=== PATIENT | female | born 1940 | race Caucasian/White ===

== ENCOUNTER → 2023-05-21 06:20 | Day surgery (SDC) | payer MEDICARE, SELFPAY ==
[2023-05-21] VITALS (12 sets, daily range): BP systolic 127–166; BP diastolic 47–110; BMI 22.3
[2023-05-21] MEDS: TYLENOL 1000 MG PO (10:53)
[2023-05-21] MEDS: NORMOSOL-R 1000 IV (10:54)
--- NOTE | 2023-05-21 14:12 | W.SUR.PREOP ---
Pre-Operative Surgical Note
-
I have examined this patient prior to the performance of the scheduled procedure.
The patient's condition is unchanged from the time of the current History and
Physical and the patient is able to undergo the scheduled procedure.
--- NOTE | 2023-05-21 14:12 | W.IMMPOSTOP ---
Surgical Immed Post Op Note
-
Primary Surgeon: Michael Aragon MD
Assisting Surgeon: None
Pre-op Diagnosis: Right inguinal hernia
Post-op Diagnosis: Same
Procedure Performed: Open right inguinal hernia repair with mesh
Anesthesia Type: General
Specimen / Cultures: Right inguinal nerve
Estimated Blood Loss: 3 cc
Complications: None
Operative Findings: Right indirect hernia with associated cord lipoma. High ligation of the sac with resection of the lipoma performed. Ilioinguinal nerve as well as the round ligament were identified and sacrificed. Iliohypogastric nerve
identified and preserved. The deep ring was closed using 0 PDS suture from the conjoined tendon to the shelving edge. The inguinal canal was then reinforced with the Bard flat mesh, 3 x 6 inches cut to size.
--- NOTE | 2023-05-21 14:14 | OR.RPT ---
Operative Report
Operative Report
Patient Name: Melissa Rainey
: 1940
Date of Operation: 05/21/2023
Preoperative Diagnosis: Reducible Inguinal hernia, right
Postoperative Diagnosis: Same
Procedure(s):
Open Inguinal Hernia Repair
Surgeon(s):
Dr. Aragon
Papier Mache Molder(s):
MARYLOU Miramontes
Anesthesia: General
Estimated Blood Loss: 3 cc
Urine Output: None
Drains/Lines/Implants: 3 x 6 inch Bard Flat Mesh cut to size
Specimens: None
Indication for surgery: The patient has a history of groin pain and some asymmetry noted on exam and was found to have a large right inguinal Hernia. Following review of therapeutic options they has elected to undergo an open repair
Operative Findings: Right indirect hernia with associated cord lipoma. High ligation of the sac with resection of the lipoma performed. Ilioinguinal nerve as well as the round ligament were identified and sacrificed. Iliohypogastric nerve
identified and preserved. The deep ring was closed using 0 PDS suture from the conjoined tendon to the shelving edge. The inguinal canal was then reinforced with the Bard flat mesh, 3 x 6 inches cut to size.
Details of the operation:
After induction of general anesthesia, the patient was clipped, prepped and draped in the supine position. A team timeout was performed confirming administration of DVT prophylaxis, IV antibiotics and SCDs. The ASIS and pubic tubercle were marked
and an incision was chosen along the lateral course of her prior scar. The skin was anesthestized with Lidocaine. An incision was made through the skin line and dissection carried down through subcutaneous tissue and Adam's fascia. The
superficial epigastric vein was identified and ligated. A Small Oleg wound retractor was used to provide exposure. The external oblique fibers were then divided in the direction of travel. The ilioinguinal nerve was identified and resected.
Dissection was carried down to the floor, which revealed the following:
At the site of the indirect (internal) ring, there was a moderate size protrusion of preperitoneal fat, the hernia sac was identified, dissected and reduced off the round ligament. High ligation of the sac was performed and the round ligament was
also ligated. The deep inguinal ring was closed using a 0 PDS suture approximately conjoined tendon to the Sajan's ligament.
A cord lipoma was also identified and ligated.
The direct space, floor of the canal revealed no weakness.
The floor of the canal was then reconstructed by placing a 6x3 in BARD flat polypropylene mesh trimmed to size and secured it in place with interrupted 0-PDS sutures medially at the pubic tubercle, inferiorly along the inguinal ligament,
laterally/superiorly in the conjoint tendon. Care was taken not to injure or entrap any nerves. The external oblique fibers were then closed using a running 2-0 Vicryl suture. Adam's fascia was then closed with interrupted 3-0 Vicryl suture. The
skin was closed in layers with interrupted 3-0 vicryl deep dermals followed by a running subcuticular 4-0 Monocryl followed by dermabond. The patient returned to the Recovery Room in stable condition. Sponge and instrument counts were correct. No
specimens sent to Pathology.
I was the attending physician and performed the procedure with assistance from the PA above. I was present for all portions of the case
Michael Aragon MD
== END | disposition home or self-care (01) ==
LOC: SDS 06:20
PROVIDERS: ATTENDING PHYSICIAN Surgery
DX: K40.90 Unilateral inguinal hernia, without obstruction or gangrene, not specified as recurrent (principal); D17.5 Benign lipomatous neoplasm of intra-abdominal organs
CPT/HCPCS: 49505; 11400; 88305; C1781

== ENCOUNTER 2023-05-26 14:52 | Inpatient (IN) | payer MEDICARE, SELFPAY ==
[2023-05-26] VITALS (34 sets, daily range): BP systolic 73–175; BP diastolic 57–126; BMI 23.4; BMI 21.8
[2023-05-26] MEDS: CARDIZEM 15 MG IV (12:12)
[2023-05-26] MEDS: NSS 500 IV (12:12)
[2023-05-26] MEDS: CARDIZEM 125 IV (12:14)
--- NOTE | 2023-05-26 12:19 | ED.GENMED ---
History of Present Illness
General
Chief Complaint: Chest Pain
Source: patient
Exam Limitations: none
Time Seen by Provider: 05/26/23 11:48
Nursing documentation reviewed up to this point in time: agreed with
Travel History
Have you had any contact with someone who has COVID-19?: No
Do you have any symptoms of coronavirus? Fever > 100 degrees, chills, cough, shortness of breath, sore throat, loss of taste or smell, muscle aches, or headache?: No
History of Present Illness
History of Present Illness:
Patient with history of paroxysmal atrial fibrillation on Eliquis, presents to ED secondary to 'not feeling well', 'fatigue', along with lightheadedness and nausea sensation x 3 days. Patient reports having had outpatient elective hernia repair on
. Eliquis withheld 2 days prior to surgery and 2 days postop. It was restarted 3 days ago. Denies palpitations. Denies vomiting. Denies headache. Denies fever or chills. Denies chest pain. Denies back pain. Denies leg pain or
swelling.
Past History
Past History
ED Past Medical History: Arrthythmia (Atrial fibrillation), HTN, Valvular disease (Endocarditis) and Other (UTI, uterine fibroids); Negative Asthma, CAD, Cancer, CHF, Hypercholesterolemia or NIDDM
ED Past Surgical History: Appendectomy, and Other (Meningioma surgery, friable iridectomy,); Negative Cardiac
Patient has exhibited threatening behavior?: No
Social History
Tobacco: 2nd hand smoke exposure (Father was a smoker, patient reports she has been told her lungs 'look like a smokers, but I have never smoked')
Alcohol: Occasional
Drug: None
Personal:
Living: with family
Employment: Retired
Family History
Family History: Other (Noncontributory)
Review of Systems
Review of Systems
Allergies reviewed?: Yes
All Other Systems: ROS reviewed and negative except as documented in HPI and ROS
Constitutional: Reports no symptoms
EENT: Reports no symptoms
Respiratory: Reports no symptoms
Cardiac: Reports no symptoms
ABD/GI: Reports nausea; Denies abdominal pain or vomiting
: Reports no symptoms
Musculoskeletal: Reports no symptoms
Skin: Reports no symptoms
Neurological: Reports dizzy and weakness
Phy Exam
Physical Exam
Physical Exam:
Physical Exam
General: mild distress, not acutely ill. afebrile. tachycardic
Head: nc/at. eomi
Neck: supple. no meningeal signs.
Heart: irregularly irregular, no murmur. equal radial pulses.
Lungs: no acute respiratory distress. clear bilaterally
Abdomen: normal bowel sounds. not tender.
Neuro: alert and oriented. no focal neurological deficits
Skin: no rash
Psychiatric: well kept. interactive and cooperative
Extremities: no edema. no calf tenderness.
Scores
Heart Score for Chest Pain Patients
STEMI patient?: Not applicable
Course
Orders/Labs/Results
Orders:
Orders
05/26/23 11:35
EKG [Electrocardiogram (*1)] Urgent
Reason for Study: Chest Pain
EKG- Treatment ONCE
05/26/23 12:05
0.9% Sodium Chloride 500 ml [Nss] 500 ml IV BOLUS
Diltiazem HCl [Cardizem] 15 mg IV NOW STA
05/26/23 12:11
Diltiazem 125 mg/125 ml Nss [Cardizem] 125 mg in 125 ml .ROUTE .STK-MED
05/26/23 12:15
Diltiazem 125 mg/125 ml Nss [Cardizem] 125 mg in 125 ml IV PER PROTOCOL
Initial dose in mg/hr, then titrate:: 5
Titrate to keep:: Heart rate 80-100 bpm
Titrate by mg/hr:: 5 mg/hr
Frequency of titrations (minutes):: 15
Maximum dose in mg/hr:: 15
05/26/23 12:19
Complete Blood Count/No Diff Urgent
Comprehensive Metabolic Panel Urgent
Cortisol, Random Urgent
Comment: ADD ON
Magnesium Urgent
NT-proBNP Urgent
Comment: ADD ON
Serum Osmolality Urgent
TSH Urgent
Troponin I Urgent
05/26/23 13:00
Diltiazem HCl [Cardizem] 10 mg IV NOW STA
05/26/23 13:01
Diltiazem HCl [Cardizem] 25 mg .ROUTE .ST-MED ONE
05/26/23 13:46
Add On- LAB Urgent
Tests Added?: urine sodium, urine osm, serum osm
05/26/23 14:00
0.9% Sodium Chloride 1000 ml [Nss] 1,000 ml IV 100 mls/hr
05/26/23 14:09
Add On- LAB Routine
Tests Added?: cortisol
Add On- LAB Routine
Tests Added?: pro bnp
05/26/23 14:21
CR Chest Portable - 1 View Urgent
Comment:
Reason For Exam: shortness of breath
Reason Study Needs to be Portable: Unable to Transport
05/26/23 14:24
Admit/Transfer Patient As Directed
Co-Sign Provider:
Level of Care: Inpatient admission
Assign to:: IVU
Physician / Group: Nathan
Diagnosis: A-fib with RVR, Hyponatremia
Reason for Hospitalization: Cardizem drip
Expected length of stay greater than two midnights?: Yes
ELOS- Estimated Length of Stay in days: 3
I certify the patient meets the requirements for IP care: Yes
CARDIOLOGY CONSULT Routine
Consulting Provider: Sean Diaz
Was physician already notified: Yes
05/26/23 14:28
Code Status As Directed
Resuscitation Status: Full Code
05/26/23 16:38
Osmolality, Random Urine Urgent
Date Specimen was Collected: 05/26/23
Time Specimen was Collected: 13:57
Comment: NO SPECIMEN IN LAB TO ADD ON TO
Urine Sodium Urgent
Date Specimen was Collected: 05/26/23
Time Specimen was Collected: 13:57
Comment: NO SPECIMEN IN LAB TO ADD ON TO
05/26/23 18:43
Acetaminophen [Tylenol] 1,000 mg PO QIDPRN PRN
05/26/23 18:43
Activity As Directed
Activity Level: Out of Bed-Early Mobility
With Assistance
I&O [Intake/ Output] As Directed
Frequency: q12h
Vital Signs As Directed
Frequency: Per unit guidelines
Weight As Directed
Frequency: Daily
05/26/23 19:00
Diltiazem Extended Release [Cardizem Cd] 240 mg PO QPM
05/26/23 20:00
Apixaban [Eliquis] 5 mg PO BID
Docusate Sodium [Colace] 100 mg PO BID
Metoprolol Xl [Toprol Xl] 25 mg PO BID
05/27/23 03:20
Basic Metabolic Panel IN AM
Complete Blood Count/No Diff IN AM
05/27/23 Breakfast
Sodium, 2 Gram
At Your Request: Full Participation
Does patient need a safe tray?: No
Fluid Restriction: 1440 mL/day (48 oz)
Abnormal Lab Results
05/26/23
12:19
MCH 31.3 H pg
(27.0-31.0)
Sodium 123 L mmol/L
(135-145)
Chloride 89 L mmol/L
(98-107)
Glucose 105 H mg/dl
(70-99)
Serum Osmolality 262 L mOsm/kg
(275-300)
05/26/23 12:19
05/26/23 12:19
Vital Signs
Initial and Last Documented VS:
Initial Vital Signs
Temp Pulse Resp BP Pulse Ox
98.3 F 153 17 134/106 95
05/26/23 11:40 05/26/23 11:40 05/26/23 11:40 05/26/23 11:40 05/26/23 11:40
Last Documented Vital Signs
Temp Pulse Resp BP Pulse Ox
98 F 94 16 126/75 99
05/27/23 07:04 05/27/23 07:04 05/27/23 07:04 05/27/23 03:14 05/27/23 07:04
MDM/Problems Addressed
MDM/Problems Addressed:
Patient evaluated immediately upon arrival secondary to significantly elevated heart rate. Initial EKG and her symptoms consistent with rapid atrial fibrillation. Patient given IV fluid bolus and started on Cardizem infusion, with improved heart
rate, as well as improved sensation. During observation, patient given 1 additional bolus of Cardizem secondary to recurrent elevation of heart rate despite high doses of Cardizem infusion. In light of patient's hyponatremia associated with labile
heart rate, patient will be admitted for further evaluation and treatment.
Critical care statement: A total of 40 minutes of critical care time was provided for this patient. This includes management of unstable vital signs, evaluation of the patient at bedside, reviewing the patient's pertinent medical records, review of
old EKGs and review of pertinent medical records. This time with separate from time utilized to perform the aforementioned documented procedures
*EKG
Interpreted by ED Provider?: Yes
EKG Intrepretation Date: 05/26/23
Heart Rate: 153
Rate: tachycardiac
Rhythm: a-fib
[place]: normal axis
Interval: normal interval
Ischemia: non-specific ST changes
*Critical Care Note
Total Time (30-74mins, 75-104mins- exclusive of procedures): 40 min
ED Attending Note
-
Portions of this chart may have been created with voice recognition software.� Occasional wrong word or��sound alike� substitutions may have occurred due to the inherent limitations of voice recognition software.
Discharge Plan
Departure
Patient Disposition: Admit
Date of Disposition: 05/26/23
Time of Disposition: 13:45
Admit to: IMU
Presentation/result/management discussed w/ accepting MD/DO: Hospitalist
Discharge Problem:
Atrial fibrillation, rapid, Acute hyponatremia
Interventions
Interventions:
*Risk Screen - Suicide Last Done: 05/26/23 11:36
*General Assessment Last Done: 05/26/23 11:36
*Neglect/Abuse Screening Last Done: 05/26/23 11:36
*ED COVID-19 Vaccine History Last Done: 05/26/23 11:36
*Nursing Disposition Last Done: 05/26/23 18:47
ED- Cardiac Assessment Last Done: 05/26/23 11:57
Discharge Date and Time
Discharge Date/Time: 05/26/23 18:48
[2023-05-26 12:28] LABS: Hemoglobin 14.8 g/dL (12.0-16.0); Mean Corp Hgb Conc. 35.2 g/dL (33.0-37.0); Mean Corpuscular Hgb 31.3 pg (27.0-31.0); Mean Corpuscular Volume 88.8 fL (81.0-99.0); Mean Platelet Volume 9.7 fL (7.4-10.4); Platelet Count 392 10^3/uL (130-400); Red Blood Cell Count 4.73 10^6/uL (4.20-5.40); Red Cell Dist. Width 12.8 % (11.5-14.5)
[2023-05-26 12:52] LABS: ALT (SGPT) 19 U/L (0-35); AST (SGOT) 31 U/L (14-36); Albumin 4.7 g/dl (3.5-5.0); Alkaline Phosphatase 102 U/L (38-126); Blood Urea Nitrogen 10 mg/dl (7-17); Calcium 10.2 mg/dl (8.4-10.2); Carbon Dioxide 24 mmol/L (22-30); Chloride 89 mmol/L (98-107); Estimated Creatinine Clearance 60 ml/min; Glucose 105 mg/dl (70-99); Magnesium 1.9 mg/dl (1.6-2.3); Sodium 123 mmol/L (135-145); Total Bilirubin 0.5 mg/dl (0.2-1.3); Total Protein 7.2 g/dl (6.3-8.2); eGFR > 60.00
[2023-05-26] MEDS: CARDIZEM 10 MG IV (13:01)
[2023-05-26 13:03] LABS: Troponin I < 0.012 ng/ml
[2023-05-26 13:32] LABS: TSH 2.13 uIU/ml (0.47-4.68)
--- NOTE | 2023-05-26 14:34 | HPS.HSE ---
Addendum entered and electronically signed by Guero Evans MD 05/30/23 14:39:
Dictation- [id number]
Addendum entered and electronically signed by Guero Evans MD 05/26/23 16:17:
82-year-old pleasant female presented with lightheadedness. She had an open inguinal hernia repair on 05/21/2023 and was discharged home. Patient admitted that she has been drinking a lot of tea and water at home. She has been experiencing fatigue
which brought her to the hospital. Eliquis was held 2 days before and after the surgery. Now restarted
On examination awake alert oriented
Cardiovascular system S1-S2 regular tachycardic
Chest few rales at the bases
Abdomen soft and nontender
Right inguinal area with ecchymosis
Neuro exam nonfocal
# Atrial fibrillation with RVR
Continue Cardizem drip
Continue Eliquis
Cardiology consultation
Update echo
# Hyponatremia
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
Lasix 40 mg IV now
Fluid restriction discussed with the patient and
Follow sodium
# Hypertension-continue Cardizem for now
Also on metoprolol
# Open right inguinal hernia repair by Dr. Aragon on 05/21/2019
# History of endocarditis
# Mild AI
# Ambulatory dysfunction/arthritis
# History of meningioma surgery
# DVT prophylaxis-Eliquis
# Full code
Discussed with patient's at bedside
Addendum entered and electronically signed by Shireen De Jesus PA-C 05/26/23 15:48:
Correction under Physical Exam
Cardiac: S1/S2, Irregular Rhythm, Tachycardia
Original Note:
Family Physician
-
Family Physician: Demi Galvez
Chief Complaint
-
Fatigue and lightheadedness
History of Present Illness
Patient is an 82-year-old female past medical history of atrial fibrillation who presents with fatigue, lightheadedness and nausea x 3 days. Patient underwent an elective outpatient open inguinal hernia repair on May 20. She states she
felt as expected on on Thursday. On Thursday she noted symptoms are slightly worse, and she continued to have worsening symptoms over the next few days prompting her to come to the emergency department for evaluation. Patient reports that she has
been eating good meals since the surgery. She states she has been drinking quite a lot of fluid including several pots of tea per day as well as Diet Coke, cranberry juice, and sparkling water. While the emergency department she send have a sodium
level of 123. Her EKG also revealed atrial fibrillation with rapid ventricular response. She denies chest pains or palpitations.
Medical History
Past Medical History
Past Medical History: Reports Other
Additional Past Medical History:
Paroxysmal Atrial Fibrillation
Past Surgical History: Reports Other
Additional Past Surgical History:
Multiple Meningioma Resections
Appendectomy
Right Knee Replacement
Left Hip Replacement
Social History
Tobacco: Non-smoker
Alcohol: Occasional
Personal:
Living: With Family
Family History
Family History: Not pertinent
Allergies / Home Medications
Allergies reflects when Allergies were last updated in [facility].
Home Medications with original date entered in [facility]
Allergy/Medication List:
Allergies
Allergy/AdvReac Type Severity Reaction Status Date / Time
cats Allergy congestion, Uncoded 05/21/23 10:37
itchy
eyes,
sneezing
hay fever Allergy congestion, Uncoded 05/21/23 10:37
itchy
eyes,
sneezing
Home Medications
diltiazem HCl 240 mg tablet,extended release 24 hr 240 mg PO QPM 01/03/14
apixaban 5 mg tablet (Eliquis) 5 mg PO BID ##0 04/11/19
metoprolol succinate 25 mg tablet,extended release 24 hr 25 mg PO BID 04/11/19
acetaminophen 500 mg tablet 1,000 mg PO QIDPRN PRN mild pain 05/15/23
calcium citrate 250 mg PO DAILY ##0 05/15/23
cyanocobalamin (vitamin B-12) 1,000 mcg tablet (Vitamin B-12) 1,000 mcg PO DAILY 05/15/23
docusate sodium 100 mg capsule (Colace) 100 mg PO BID 05/26/23
polyethylene glycol 3350 17 gram oral powder packet (Miralax) 17 g PO DAILYPRN PRN constipation 05/26/23
Review of Systems
-
A 12 point ROS was completed and negative except as noted: Yes
Constitutional: Denies Fever or Chills
Respiratory: Reports Trouble Breathing (Mild); Denies Cough
Cardiac: Denies Chest Pain or Palpitations
Abdomen/GI: Reports Nausea and Constipated; Denies Abdominal Pain or Vomiting
Physical Exam
Vital Signs
Vital Signs
Temp Pulse Resp BP Pulse Ox
98.3 F 98 17 135/123 98
05/26/23 11:40 05/26/23 13:15 05/26/23 13:15 05/26/23 13:15 05/26/23 13:15
Physical Exam
General: Comfortable and Conversant
HEENT: Anicteric and Moist mucous membranes
Respiratory: Clear and Non Labored Respirations
Cardiac: S1/S2 and Regular Rhythm
GI: Soft, Non Tender and Other (Abdomen feels full)
Rectal: Deferred by Provider
Musculoskeletal: No Clubbing, No Cyanosis and No Edema
Skin: Warm, Dry and Other (Right Groin incision site appears clean, dry and intact without evidence of infection)
Neuro: Awake, Alert, Oriented and Nonfocal/grossly intact
Psych: Calm
Laboratory Results
-
05/26/23 12:19
05/26/23 12:19
Laboratory Results
Total Bilirubin 0.5 mg/dl (0.2-1.3) 05/26/23 12:19
AST 31 U/L (14-36) 05/26/23 12:19
ALT 19 U/L (0-35) 05/26/23 12:19
Alkaline Phosphatase 102 U/L (38-126) 05/26/23 12:19
Troponin I < 0.012 ng/ml 05/26/23 12:19
Data Reviewed
-
Lab Data: Labs Reviewed by me
Old Records: Reviewed
Impression/Plan
-
Atrial Fibrillation with Rapid Ventricular Response
-Admit to IVU for titratable Cardizem drip
-Consult Cardiology
-Continue Eliquis for anticoagulation
-Check CXR and BNP
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
-Check urine sodium, and urine osmolality
-Start fluid restriction
-Recheck sodium in AM
DVT proph: Eliquis
Code Status: Full Code
--- NOTE | 2023-05-26 14:39 | CON.CAR ---
Addendum entered and electronically signed by Sean Diaz MD 05/26/23 16:48:
I saw and examined the patient.
The TRAM DRIVER's note was reviewed and I agree with the note.
82-year-old woman with history of paroxysmal atrial fibrillation, distant history of pericarditis who underwent her 05/21/2023. Patient reports feeling weak and fatigued over the last 4 days on presentation patient with RVR but is also noted to be
hyponatremic with a sodium of 123. Patient's with regulation over the last 4 days. Patient is unsure about the exact time of onset of her A-fib. No complaints of racing. She has had some mild chest discomfort at night when she lays down it feels
like a tightness but it goes away if she sits up. Currently comfortable with no chest pain or shortness of breath at rest.
-Continue IV Cardizem for rate control of A-fib
-Continue Eliquis.
-Additional management of hyponatremia as directed by primary team
-If patient does not spontaneously convert to sinus rhythm then we can consider JESUSITA cardioversion this admission however I would wait until her hyponatremia has improved.
Original Note:
Consultation
Consultation Request
Date/Time Consultation Requested: 05/26/23 14:20
Date/Time Consultation Performed: 05/26/23 14:45
Requesting Provider: Shireen De Jesus PA-C
Performing Provider: EMIL Leiva for Dr. Diaz
Reason for Consultation: Atrial fibrillation with RVR
Medical History
-
Chief Complaint: Lightheadedness
History of Present Illness:
Melissa Rainey is an 82 year-old female (known to her primary chief librarian work with blind, Dr. Moya, formerly known to Dr. Louie) with paroxysmal atrial fibrillation (on Eliquis), hypertension (white coat element), mild aortic regurgitation, recurrent
meningiomas status-post gamma knife surgery for removal of enlarging meningiomas (at the [facility]), and previous viral pericarditis (2012) presenting with a chief complaint of lightheadedness. She had a right open
inguinal hernia repair on 05/21/2023. She was discharged home. There were no intraoperative complications. On Thursday, she began experiencing more significant fatigue in addition to lightheadedness and nausea. She presented to the emergency room
for evaluation. She was found to have hyponatremia and endorsed significant fluid consumption. She was also found to be in atrial fibrillation with rapid ventricular response. Her apixaban was held 2 days prior to her surgery and 2 days
postoperatively.
Past Medical History
Past Medical History: Other (See HPI)
Past Surgical History: Brain, Cardiac, and Orthopedic
Social History
Tobacco: Non-Smoker
Personal:
Living: With Family
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
Family History
Family History: Reviewed & Not Pertinent
Allergies / Home Medications
Allergy/AdvReac Type Severity Reaction Status Date / Time
cats Allergy congestion, Uncoded 05/21/23 10:37
itchy
eyes,
sneezing
hay fever Allergy congestion, Uncoded 05/21/23 10:37
itchy
eyes,
sneezing
Medication Instructions Recorded Confirmed Type
diltiazem HCl 240 mg 240 mg PO QPM 01/03/14 05/26/23 History
tablet,extended release 24 hr
apixaban 5 mg tablet (Eliquis) 5 mg PO BID ##0 04/11/19 05/26/23 Rx
metoprolol succinate 25 mg 25 mg PO BID 04/11/19 05/26/23 Rx
tablet,extended release 24 hr
acetaminophen 500 mg tablet 1,000 mg PO QIDPRN PRN mild pain 05/15/23 05/26/23 History
calcium citrate 250 mg PO DAILY ##0 05/15/23 05/26/23 History
cyanocobalamin (vitamin B-12) 1,000 mcg PO DAILY 05/15/23 05/26/23 History
1,000 mcg tablet (Vitamin B-12)
docusate sodium 100 mg capsule 100 mg PO BID 05/26/23 05/26/23 History
(Colace)
polyethylene glycol 3350 17 gram 17 g PO DAILYPRN PRN constipation 05/26/23 05/26/23 History
oral powder packet (Miralax)
Review of Systems
-
History Source: Patient
All other systems: Negative unless noted
Respiratory: No Symptoms
Cardiac: No Symptoms
Neurological: Other (lightheadedness)
Physical Exam
Vital Signs
Temp Pulse Resp BP Pulse Ox
98.3 F 98 17 135/123 98
05/26/23 11:40 05/26/23 13:15 05/26/23 13:15 05/26/23 13:15 05/26/23 13:15
Lab Results
05/26/23 12:19
05/26/23 12:19
Troponin I < 0.012 ng/ml 05/26/23 12:19
Physical Exam
General: Well Developed, Well Nourished, No Apparent Distress and Comfortable
HEENT: Normocephalic, Anicteric and Moist Mucous Membranes
Respiratory: Clear and Non Labored Respirations
Cardiac: S1/S2 and Irregular Rhythm; Negative Peripheral Edema
Breast: Deferred by me
GI: Soft, Non Tender, Non Distended and Normal Bowel Sounds
Rectal: Deferred by Provider
Genito-urinary: No Costovertebral Tender
Musculoskeletal: No Clubbing, No Cyanosis and No Edema
Skin: Warm and Dry
Neuro: AO x 3
Hematologic/Lymphatic: No Lymphadenopathy
Psych: Calm
Impression / Plan
-
Atrial fibrillation with RVR
-Rate control with diltiazem gtt
-Oral Anticoagulation: Apixaban 5mg BID, doses held with recent surgery, resumed 05/23/23
-[id number]: score at least 4 (HTN, age 75 or more, female gender)
-Can consider JESUSITA/DCCV after sodium normalizes
Hyponatremia
- Na 123, suspicious for SIADH given significant fluid intake
HTN, with white coat element
Mild aortic regurgitation
Open right inguinal hernia repair by Dr. Aragon on 05/20/22
Data Reviewed
-
EKG: Report Reviewed by me (Atrial fibrillation with RVR, rate 153)
Radiology: Report Reviewed by me (CXR: No acute cardiopulmonary process.)
Medical Tests (Nuc Med, Echo etc): Report Reviewed by me (Echo as above)
Labs: Labs Reviewed by me
Old Records: Reviewed
[2023-05-26 14:42] LABS: Osmolality Serum 262 mOsm/kg (275-300)
[2023-05-26 15:25] LABS: NT-proBNP 4770 pg/ml
[2023-05-26 15:28] LABS: Cortisol, Random 18.1 ug/dl
[2023-05-26] MEDS: LASIX 40 MG IV (16:48)
[2023-05-26 16:58] LABS: Osmolality Urine 96 mOsm/kg (300-900)
[2023-05-26 17:08] LABS: Urine Sodium 27 mmol/L (30-90)
--- NOTE | 2023-05-26 19:02 | PTCARENOTE ---
Patient admitted from ED with LORY with RVR. Patient assisted to the bed, IV cardizem infusing at 10mg/hr. Oriented to room and plan of care, call snow within reach. Admission assessment completed, at the bedside.
[2023-05-26] MEDS: TOPROL XL 25 MG PO (20:12)
[2023-05-26] MEDS: ELIQUIS 5 MG PO (20:12)
[2023-05-26] MEDS: COLACE 100 MG PO (20:13)
[2023-05-26] MEDS: CARDIZEM CD 240 MG PO (20:17)
[2023-05-26] MEDS: MIRALAX 17 GRAMS PO (22:28)
[2023-05-26] MEDS: TYLENOL 1000 MG PO (22:29)
--- NOTE | 2023-05-26 22:51 | PTCARENOTE ---
Pt rec'd from ED at shift change awake,alert in rapid afib. Cardizem gtt at 10 mg/hr. ht rate low 100 at rest up to 140 with activity. After receiving po Cardizem and Lopressor pts ht rate 80's with short pauses noted. RLQ hernia repair incision angeles
no drainage; surgical glue present. hypoactive bs noted. Pt reports no bm since . Miralax order obtained and given along with Colace. Pt medicated with Tylenol for inc discomfort 2 out of 10. call snow within reach.
[2023-05-27] VITALS (8 sets, daily range): BP systolic 98–126; BP diastolic 61–84; BMI 21.5
[2023-05-27 03:59] LABS: Hematocrit 43.7 % (37.0-47.0); Hemoglobin 15.6 g/dL (12.0-16.0); Mean Corp Hgb Conc. 35.7 g/dL (33.0-37.0); Mean Corpuscular Hgb 31.4 pg (27.0-31.0); Mean Corpuscular Volume 87.9 fL (81.0-99.0); Mean Platelet Volume 9.3 fL (7.4-10.4); Platelet Count 400 10^3/uL (130-400); Red Blood Cell Count 4.97 10^6/uL (4.20-5.40); White Blood Cell Count 7.3 10^3/uL (4.8-10.8)
[2023-05-27 04:10] LABS: Blood Urea Nitrogen 13 mg/dl (7-17); Calcium 9.9 mg/dl (8.4-10.2); Carbon Dioxide 27 mmol/L (22-30); Chloride 98 mmol/L (98-107); Estimated Creatinine Clearance 42 ml/min; Glucose 98 mg/dl (70-99); Potassium 4.4 mmol/L (3.5-5.1); Sodium 131 mmol/L (135-145); eGFR 56.25
--- NOTE | 2023-05-27 05:39 | PTCARENOTE ---
Pt remains in afib rates 60-80. Cardizem gtt at 5 mg at this time.
[2023-05-27] MEDS: COLACE 100 MG PO ×2 (08:14→20:06)
[2023-05-27] MEDS: TOPROL XL 25 MG PO ×2 (08:14→20:05)
[2023-05-27] MEDS: ELIQUIS 5 MG PO ×2 (08:14→20:06)
--- NOTE | 2023-05-27 08:30 | PTCARENOTE ---
Received patient this morning resting in bed, offers no complaints. IV cardizem infusing at 5mg/hr, remains in AF with rate in the 90's at rest however when oob to the bathroom, rates are 150-160's.
--- NOTE | 2023-05-27 10:37 | CM ---
Chart reviewed. Patient is independent of ADLS, lives with her in a [address], [address] with a railing, 0 DME. Patient is not current with VN, but is interested. Referral sent to [facility]. Plan is for the [facility]. CM to
follow
--- NOTE | 2023-05-27 11:33 | W.PN.HOSP.TC ---
Today's Communication/Plan
-
Lasix 20 mg now
BMP in am
JESUSITA CV in am
Assessment / Plan
Assessment / Plan
Cardiovascular system S1-S2 irregular tachycardic
Chest few rales at the bases
Abdomen soft and nontender
Right inguinal area with ecchymosis
Neuro exam nonfocal
# Atrial fibrillation with RVR
Continue Cardizem drip
Continue Eliquis
Cardiology consultation
Update echo For JESUSITA
JESUSITA/CV planned for tomorrow
# Hyponatremia
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
Lasix 20 mg IV now
Fluid restriction
Follow sodium-Better now
# Hypertension-continue Cardizem for now
Also on metoprolol
# Open right inguinal hernia repair by Dr. Aragon on 05/21/2019
He is aware
# History of endocarditis
# Mild AI
# Ambulatory dysfunction/arthritis
# History of meningioma surgery
# DVT prophylaxis-Eliquis
# Full code
D/W and daughter at bed side
Anticipated Discharge: Within 24 hours
Subjective/Interval History
-
Date of Service: May 27, 2023
Objective Data
-
Labs:
Laboratory Results
05/27/23
03:20
WBC 7.3
Hgb 15.6
Hct 43.7
Plt Count 400
Sodium 131 L D
Potassium 4.4
Chloride 98
Carbon Dioxide 27
BUN 13
Creatinine 1.0
Glucose 98
Calcium 9.9
Vital Signs:
Vital Signs
Temp Pulse Resp BP Pulse Ox
97.8 F 106 22 113/71 99
05/27/23 11:16 05/27/23 11:16 05/27/23 11:16 05/27/23 07:04 05/27/23 07:04
I&O
05/26/23 05/27/23 05/28/23
06:59 06:59 06:59
Intake Total 440 / 440 300 / 300
Output Total 150 / 150 650 / 650
Balance 290 / 290 -350 / -350
--- NOTE | 2023-05-27 11:46 | W.PN.CD ---
Today's Communication / Plan
-
-Patient with suboptimal heart rate control, even on Cardizem drip.
-Continue Cardizem drip for now.
-Continue Eliquis; doses recently held due to hernia repair surgery, resumed on 05/23/2023.
-Unable to increase metoprolol dose, as patient had heart rates in the 50s in the office when she was in sinus rhythm.
-Will schedule for JESUSITA/cardioversion tomorrow.
-Will make NPO after midnight.
Impression / Plan
-
Melissa Rainey is an 82 year-old female (known to her primary dosier operator, Dr. Moya, formerly known to Dr. Louie) with paroxysmal atrial fibrillation (on Eliquis), hypertension (white coat element), mild aortic regurgitation, recurrent
meningiomas status-post gamma knife surgery for removal of enlarging meningiomas (at the [facility]), and previous viral pericarditis (2012) presenting with a chief complaint of lightheadedness. She had a right open
inguinal hernia repair on 05/21/2023. Found to be in AFIB with RVR.
PAF with RVR
-Patient with suboptimal heart rate control, even on Cardizem drip.
-Continue Cardizem drip for now.
-Continue Eliquis; doses recently held due to hernia repair surgery, resumed on 05/23/2023.
-Unable to increase metoprolol dose, as patient had heart rates in the 50s in the office when she was in sinus rhythm.
-Will schedule for JESUSITA/cardioversion tomorrow.
-Will make NPO after midnight.
-Oral Anticoagulation: Apixaban 5mg BID, doses held with recent surgery, resumed 05/23/23.
-[id number]: score at least 4 (HTN, age 75 or more, female gender)
Hyponatremia
- Na 123, suspicious for SIADH given significant fluid intake; improved.
HTN, with white coat element
Mild aortic regurgitation - stable.
Open right inguinal hernia repair by Dr. Aragon on 05/20/22 - stable.
Physical Exam
Vital Signs/Labs
Vital Signs
Temp Pulse Resp BP Pulse Ox
97.8 F 95 22 98/71 99
05/27/23 11:16 05/27/23 11:30 05/27/23 11:16 05/27/23 11:16 05/27/23 07:04
05/26/23 05/27/23 05/28/23
06:59 06:59 06:59
Actual Weight 62.2 kg
05/27/23 03:20
05/27/23 03:20
Magnesium 1.9 mg/dl (1.6-2.3) 05/26/23 12:19
TSH 2.13 uIU/ml (0.47-4.68) 05/26/23 12:19
05/26/23
12:19
Waj-B-Bckcaanitlc Pept 4770
LAB Results
05/26/23
12:19
Troponin I < 0.012
Physical Exam
Constitutional: No acute distress and Comfortable
EENT: Anicteric
Cardiovascular: Pedal edema is absent, Systolic murmur absent, Rhythm/rate is irregular and S1S2 is normal
Respiratory: Respiratory effort normal and Lungs clear to auscul.
GI: Soft
Neuro/Psych: AO x 3
Other: Skin (Warm, dry, intact)
Data Reviewed
-
Date of Service: May 27, 2023
EKG: Report Reviewed by me (Telemetry: A-fib with RVR/variable heart rates+)
Echo: Report Reviewed by me (Normal LVEF)
Medical Tests (PFT, Pathology etc): Discussed with Patient and Discussed with Family (, Neeraj, at bedside)
Labs: Labs Reviewed by me
[2023-05-27] MEDS: FLUSH (NSS) 2 FLUSH IV (11:59)
[2023-05-27] MEDS: LASIX 20 MG IV (11:59)
--- NOTE | 2023-05-27 13:34 | PTCARENOTE ---
Patient remains in AF, asymptomatic. Seen by cardiology, for JESUSITA/CV in AM. Cardizem infusing at 5mg/hr.
--- NOTE | 2023-05-27 16:02 | PTCARENOTE ---
Patient stated she was feeling stiff from lying in bed. Assisted to the recliner chair however 10 mins later she stated she felt a little nauseated and lightheaded. BP 121/76, remains in AF with HR in the 120's. Assisted back to bed, sipping modesta
alanna and feeling better now.
[2023-05-27] MEDS: CARDIZEM CD 240 MG PO (17:20)
[2023-05-27] MEDS: CARDIZEM 125 IV (22:41)
[2023-05-27] MEDS: TYLENOL 1000 MG PO (22:42)
[2023-05-28] VITALS (12 sets, daily range): BP systolic 74–146; BP diastolic 49–99; BMI 21.8
--- NOTE | 2023-05-28 00:21 | PTCARENOTE ---
Pt rec'd at change of shift with sons at bedside. Pt remains in afib. Npo after mn for JESUSITA/CV in am. Cardizem gtt continued via RAC at 5 mg/hr.
[2023-05-28 04:42] LABS: Blood Urea Nitrogen 17 mg/dl (7-17); Calcium 9.8 mg/dl (8.4-10.2); Carbon Dioxide 29 mmol/L (22-30); Chloride 91 mmol/L (98-107); Estimated Creatinine Clearance 53 ml/min; Glucose 95 mg/dl (70-99); Magnesium 2.2 mg/dl (1.6-2.3); Potassium 4.3 mmol/L (3.5-5.1); Sodium 128 mmol/L (135-145); eGFR > 60.00
--- NOTE | 2023-05-28 05:05 | PTCARENOTE ---
Pt remains in afib. cardizem gtt continued at 5 mg/hr.
[2023-05-28] MEDS: TOPROL XL 25 MG PO ×2 (08:23→19:53)
[2023-05-28] MEDS: ELIQUIS 5 MG PO ×2 (08:23→19:54)
--- NOTE | 2023-05-28 08:47 | W.PN.CD ---
Today's Communication / Plan
-
continue eliquis
JESUSITA/DCCV today
will stop diltiazem drip
Impression / Plan
-
82 year-old female (known to her primary music executive, Dr. Moya, formerly known to Dr. Louie) with paroxysmal atrial fibrillation (on Eliquis), hypertension (white coat element), mild aortic regurgitation, recurrent meningiomas status-post
gamma knife surgery for removal of enlarging meningiomas (at the [facility]), and previous viral pericarditis (2012) presenting with a chief complaint of lightheadedness. She had a right open inguinal hernia repair on
05/21/2023. Found to be in AFIB with RVR.
Parox AFib: now with recurrence with RVR
-Patient with suboptimal heart rate control, even on Cardizem drip. Will stop drip this AM.
-Continue Eliquis; doses recently held due to hernia repair surgery, resumed on 05/23/2023.
-Unable to increase metoprolol dose, as patient had heart rates in the 50s in the office when she was in sinus rhythm.
-JESUSITA/cardioversion today
-Oral Anticoagulation: Apixaban 5mg BID, doses held with recent surgery, resumed 05/23/23.
-[id number]: score at least 4 (HTN, age 75 or more, female gender)
Hyponatremia
- Na 123, suspicious for SIADH given significant fluid intake; improving
HTN, with white coat element
Mild aortic regurgitation - stable.
Open right inguinal hernia repair by Dr. Aragon on 05/20/22 - stable.
Physical Exam
Vital Signs/Labs
Vital Signs
Temp Pulse Resp BP Pulse Ox
98.1 F 87 18 104/83 99
05/28/23 07:42 05/28/23 08:23 05/28/23 07:42 05/28/23 08:23 05/28/23 07:42
05/27/23 05/28/23 05/29/23
06:59 06:59 06:59
Actual Weight 62.2 kg 63.2 kg
05/27/23 03:20
05/28/23 04:02
Magnesium 2.2 mg/dl (1.6-2.3) 05/28/23 04:02
TSH 2.13 uIU/ml (0.47-4.68) 05/26/23 12:19
05/26/23
12:19
Rib-Y-Svvaheqmnnn Pept 4770
LAB Results
05/26/23
12:19
Troponin I < 0.012
Physical Exam
Constitutional: No acute distress and Comfortable
EENT: Moist mucous membranes
Cardiovascular: Pedal edema is absent, JVD pressure is normal, Systolic murmur absent and Rhythm/rate is irregular
Respiratory: Respiratory effort normal, Lungs clear to auscul. and Wheeze Absent
GI: Soft and Distention absent
Neuro/Psych: AO x 3
Data Reviewed
-
Date of Service: May 28, 2023
EKG: Other (Tele: A fib 100-110)
Labs: Labs Reviewed by me
--- NOTE | 2023-05-28 10:17 | W.PN.HOSP.TC ---
Today's Communication/Plan
-
JESUSITA/CV today
One dose of Samsca
Assessment / Plan
Assessment / Plan
Cardiovascular system S1-S2 irregular tachycardic
Chest few rales at the bases
Abdomen soft and nontender
Right inguinal area with ecchymosis
Neuro exam nonfocal
# Atrial fibrillation with RVR
Continue Cardizem drip
Continue Eliquis
Cardiology consultation
Update echo For JESUSITA
JESUSITA/CV planned for today
# Hyponatremia
Lower today
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
S/P Lasix
Will give a dose of Samsca
Fluid restriction
Follow sodium
# Hypertension-continue Cardizem for now
Also on metoprolol
# Open right inguinal hernia repair by Dr. Aragon on 05/21/2019
He is aware re hospital admission
# History of endocarditis
# Mild AI
# Ambulatory dysfunction/arthritis
# History of meningioma surgery
# DVT prophylaxis-Eliquis
# Full code
D/W at bed side
D/W
Anticipated Discharge: Within 24 hours
Subjective/Interval History
-
Date of Service: May 28, 2023
Objective Data
-
Labs:
Laboratory Results
05/28/23
04:02
Sodium 128 L
Potassium 4.3
Chloride 91 L
Carbon Dioxide 29
BUN 17
Creatinine 0.8
Glucose 95
Calcium 9.8
Vital Signs:
Vital Signs
Temp Pulse Resp BP Pulse Ox
98.1 F 87 18 104/83 99
05/28/23 07:42 05/28/23 08:23 05/28/23 07:42 05/28/23 08:23 05/28/23 07:42
I&O
05/27/23 05/28/23 05/29/23
06:59 06:59 06:59
Intake Total 440 / 440 780 / 780
Output Total 150 / 150 1750 / 1750 500 / 500
Balance 290 / 290 -970 / -970 -500 / -500
--- NOTE | 2023-05-28 10:26 | W.PN.UPDATE ---
Update Note
Progress Note Update
Unable to pass JESUSITA probe during JESUSITA even with assistance from anesthesia and using glide scope
Will abort JESUSITA/CV for now. Cont rate control strategy.
Cont Cardizem.
consider esophagram or 4 weeks of anticoagulation and then elective CV.
Discussed with Dr. Arora
--- NOTE | 2023-05-28 10:48 | CON.GI ---
Addendum entered and electronically signed by Alek Casillas MD 05/28/23 22:02:
I saw and examined the patient.
The PA's note was reviewed and I agree with the note.
Comment:
The pt is a 82 year old female with h/o PAF on Eliquis, HTN, and AR who p/w lightheadedness, found to have afib with RVR. Cardiology attempted CV today and noted difficulty with JESUSITA probe.
Impression / Rec:
1. Inability to pass JESUSITA probe - may be 2/2 to osteophyte or benign stenosis in UES. Agree with esophagram for further eval +/- EGD.
Original Note:
Consultation
-
Date/Time Consultation Requested: 05/28/23 1030
Date/Time Consultation Performed: 05/28/23 1040
Requesting Provider: EMIL Sánchez
Performing Provider: EMIL Naidu, Alek Casillas MD
Reason for Consultation: abnormal JESUSITA
Medical History
Chief Complaint / HPI
Chief Complaint: abnormal JESUSITA
History of Present Illness:
Pt is a 82yo with hx PAF on Eliquis, HTN, Aortic regurg, several meningiomas with resection and gamma knife procedure, osteoma with resection, prior pericarditis, open hernia repair last week with onset of lightheadedness. On admission noted with
hyponatremia and afib with RVR and went for CV today and noted difficulty with JESUSITA probe.
In reviewing with patient and family hx occasional chronic dysphagia with eating but no prior food impaction or regurgitation. She denies odynophagia, wt loss, nausea, vomiting, hematemesis, abdominal pain, diarrhea, constipation or rectal
bleeding. No hx EGD. Last colonoscopy age 75 small polyp.
Past Medical History
Past Medical History: Arrhythmias (afib with RVR), HTN, Valvular Disease (Aortic regurg) and Other (endocarditis, arthritis ambulatory dysfunction,several brain menigiomas and prior resection and gamma knife surgery, osteoma)
Past Surgical History: , Orthopedic (THR, knee surgery) and Other (meningioma resection, open inguinal hernia repair )
Social History
Tobacco: Non-Smoker
Alcohol: Occasional
Drug: None
Personal:
Living: With Family
Employment: Retired
Family History
Family History: Other (no family hx GI malignancies )
Allergies / Home Medications
Allergy/AdvReac Type Severity Reaction Status Date / Time
cat dander Allergy congestion, Verified 05/26/23 20:52
itchy
eyes,
sneezing
pollen extracts Allergy HAYFEVER-congestion, Verified 05/26/23 20:52
itchy
eyes,
sneezing
�Medication �Instructions �Recorded
diltiazem HCl 240 mg 240 mg PO QPM Blood Pressure 01/03/14
tablet,extended release 24 hr
apixaban 5 mg tablet (Eliquis) 5 mg PO BID ##0 04/11/19
metoprolol succinate 25 mg 25 mg PO BID 04/11/19
tablet,extended release 24 hr
acetaminophen 500 mg tablet 1,000 mg PO QIDPRN PRN mild pain 05/15/23
calcium citrate 250 mg PO DAILY Supplement ##0 05/15/23
cyanocobalamin (vitamin B-12) 1,000 mcg PO DAILY Supplement 05/15/23
1,000 mcg tablet (Vitamin B-12)
docusate sodium 100 mg capsule 100 mg PO BID Constipation 05/26/23
(Colace)
polyethylene glycol 3350 17 gram 17 g PO DAILYPRN PRN constipation 05/26/23
oral powder packet (Miralax)
Review of Systems
-
History Source: Patient and Family
Constitutional: Reports No Symptoms
EENT: Reports Other (occasional mild dysphagia )
Respiratory: Reports No Symptoms
Cardiac: Reports Palpitations (with afib)
Abdomen/GI: Reports No Symptoms
: Reports No Symptoms
Musculoskeletal: Reports No Symptoms
Skin: Reports No Symptoms
Neurological: Reports Dizzy (on admission)
Endocrine: Reports No Symptoms
Hematologic/Lymphatic: Reports No Symptoms
Vital Signs
Temp Pulse Resp BP Pulse Ox
98.1 F 87 18 104/83 99
05/28/23 07:42 05/28/23 08:23 05/28/23 07:42 05/28/23 08:23 05/28/23 07:42
Physical Exam
Exam
General: Well Developed, Well Nourished and No Apparent Distress
HEENT: Normocephalic and Anicteric
Respiratory: Clear
Cardiac: Other (tachy)
GI: Soft
Musculoskeletal: No Clubbing and No Cyanosis
Skin: Warm and Dry
Neuro: Awake, Alert and AO x 3
Psych: Calm
Results
WBC 7.3 10^3/uL (4.8-10.8) 05/27/23 03:20
Hgb 15.6 g/dL (12.0-16.0) 05/27/23 03:20
Hct 43.7 % (37.0-47.0) 05/27/23 03:20
MCV 87.9 fL (81.0-99.0) 05/27/23 03:20
Plt Count 400 10^3/uL (130-400) 05/27/23 03:20
Sodium 128 mmol/L (135-145) L 05/28/23 04:02
Potassium 4.3 mmol/L (3.5-5.1) 05/28/23 04:02
Chloride 91 mmol/L (98-107) L 05/28/23 04:02
Carbon Dioxide 29 mmol/L (22-30) 05/28/23 04:02
BUN 17 mg/dl (7-17) 05/28/23 04:02
Creatinine 0.8 mg/dL (0.6-1.0) 05/28/23 04:02
Calcium 9.8 mg/dl (8.4-10.2) 05/28/23 04:02
Total Bilirubin 0.5 mg/dl (0.2-1.3) 05/26/23 12:19
AST 31 U/L (14-36) 05/26/23 12:19
ALT 19 U/L (0-35) 05/26/23 12:19
Alkaline Phosphatase 102 U/L (38-126) 05/26/23 12:19
Diagnostic Image Results:
Prior GI Procedures:
EGD: none
Colonoscopy: age 75 with polyps
Assessment / Plan
-
Pt is a 82yo with hx PAF on Eliquis, HTN, Aortic regurg, recurrent meningioma resection, prior pericarditis, open hernia repair with onset of lightheadedness. On admission noted with hyponatremia and afib with RVR and went for CV today and noted
difficulty with JESUSITA probe.
-difficulty with JESUSITA probe advancement
-occasional dysphagia
-afib with RVR on admission
-hyponatremia
other medical problems:
-HTN
-aortic regurg
-recurrent meningioma with resection
-pericarditis
-open hernia repair
-
PLAN:
etiology of difficulty with advancing probe with JESUSITA
reviewed with patient and family plan for esophagram with barium tablet if abnormal t/c EGD
will see if can do esophagram today vs in AM
still with some issues with elevated HR this am
pt currently remain on Eliquis
cont NPO til timing of esophagram confirmed
updated family at bedside
-
-
Thank you for consultation and allowing me to participate in the patient's care. Please call the computational biologist GI physician during the after hours with any questions or concerns.
--- NOTE | 2023-05-28 10:57 | CM ---
Chart reviewed. Patient's JESUSITA was aborted today 2/2 unable to pass probe. Patient is independent of ADLS, lives with her in a 1 [address], 2 [address] with a railing, 0 DME. Referral sent to [facility]. Plan is for the [facility].
CM to follow
--- NOTE | 2023-05-28 15:05 | W.PN.UPDATE ---
Update Note
Progress Note Update
Heart rates are still on fast end. She does not feel it. Plan is currently rate-control. Remain off dilt drip. Continue metoprolol. Will increase diltiazem to 360 mg daily and monitor rates. GI evaluating since JESUSITA probe unable to be advanced.
[2023-05-28] MEDS: COLACE 100 MG PO ×2 (16:50→19:54)
[2023-05-28] MEDS: SAMSCA 15 MG PO (16:52)
[2023-05-28] MEDS: CARDIZEM CD 360 MG PO (16:53)
[2023-05-28 17:46] LABS: Osmolality Urine 207 mOsm/kg (300-900)
[2023-05-28 17:56] LABS: Urine Sodium 14 mmol/L (30-90)
[2023-05-28] MEDS: TYLENOL 1000 MG PO (19:59)
--- NOTE | 2023-05-28 20:00 | PTCARENOTE ---
report received from previous RN, walking rounds done. pt in bed, AAOx4. pt AFIB on monitor, HR 140's. POX 97% on room air. PIV intact and patent. skin CDI. PRN tylenol given for ABD incision pain. see worklist for full assessment, VS, and
interventions. pt resting comfortably.
[2023-05-29] VITALS (7 sets, daily range): BP systolic 103–139; BP diastolic 61–84; BMI 21.7
--- NOTE | 2023-05-29 04:30 | PTCARENOTE ---
pt VSS, no changes in assessment overnight. AAOx4. AFIB on monitor, HR 80's-120's overnight. POX 98% on room air. AM labs drawn and sent. pt sleeping between care.
[2023-05-29 05:11] LABS: Blood Urea Nitrogen 14 mg/dl (7-17); Calcium 9.8 mg/dl (8.4-10.2); Carbon Dioxide 30 mmol/L (22-30); Chloride 95 mmol/L (98-107); Estimated Creatinine Clearance 53 ml/min; Glucose 92 mg/dl (70-99); Potassium 4.3 mmol/L (3.5-5.1); Sodium 132 mmol/L (135-145); eGFR > 60.00
[2023-05-29] MEDS: ELIQUIS 5 MG PO ×2 (08:21→19:40)
[2023-05-29] MEDS: COLACE 100 MG PO ×2 (08:21→19:40)
[2023-05-29] MEDS: TOPROL XL 25 MG PO (08:21)
[2023-05-29] MEDS: LASIX 20 MG IV (08:25)
[2023-05-29] MEDS: FLUSH (NSS) 1 FLUSH IV (08:26)
--- NOTE | 2023-05-29 09:01 | W.PN.HOSP.TC ---
Today's Communication/Plan
-
Rate control
20 mg of Lasix given
Follow sodium tomorrow
MRI of the cervical spine
Assessment / Plan
Assessment / Plan
Cardiovascular system S1-S2 irregular tachycardic
Chest few rales at the bases
Abdomen soft and nontender
Right inguinal area with ecchymosis
Neuro exam nonfocal
# Atrial fibrillation with RVR
JESUSITA/cardioversion was aborted yesterday as endoscope could not be passed
Off Cardizem drip on increased dose of Cardizem-360 mg
Also on metoprolol 25 twice daily.
Patient's states that she was on reduced dose of metoprolol because her heart rate was found to be low during preop evaluation.
It may be challenging to control the heart rate given her baseline bradycardia
Defer to cardiology whether she needs amiodarone
Continue Eliquis
Cardiology following
Defer whether the need for repeat ECHO to Cardiology
# Hyponatremia
Likely secondary to excess fluid intake and also Afib
20 mg Lasix again today
Samsca was not given based on fluid Osm studies
Fluid restriction
Follow sodium
# Hypertension-continue Cardizem for now
Also on metoprolol
# Open right inguinal hernia repair by Dr. Aragon on 05/21/2019
He is aware re hospital admission
# History of endocarditis
# Mild AI
# Ambulatory dysfunction/arthritis
# History of meningioma surgery
# DVT prophylaxis-Eliquis
# Full code
D/W at bed side
D/W
D/W RN
D/W GI
Anticipated Discharge: 24 - 48 hours
Subjective/Interval History
-
Date of Service: May 29, 2023
Objective Data
-
Labs:
Laboratory Results
05/29/23
04:39
Sodium 132 L
Potassium 4.3
Chloride 95 L
Carbon Dioxide 30
BUN 14
Creatinine 0.8
Glucose 92
Calcium 9.8
Vital Signs:
Vital Signs
Temp Pulse Resp BP Pulse Ox
97.7 F 142 18 139/82 98
05/29/23 07:00 05/29/23 08:41 05/29/23 07:00 05/29/23 08:41 05/29/23 08:00
I&O
05/28/23 05/29/23 05/30/23
06:59 06:59 06:59
Intake Total 780 / 780 450 / 450
Output Total 1750 / 1750 1550 / 1550
Balance -970 / -970 -1100 / -1100
--- NOTE | 2023-05-29 10:34 | CM ---
Chart reviewed. Patient is independent of ADLS, lives with her in a [address], [address] with a railing, 0 DME. Plan is for the patient to return home with KELLE. TONE to follow
--- NOTE | 2023-05-29 12:17 | W.PN.GI.CBS2 ---
Addendum entered and electronically signed by Car Juarez MD 05/29/23 16:24:
I saw and examined the patient.
The ART SPECIALIST or PA's note was reviewed and I agree with the note.
Comment:
Pt with no dysphagia
alert, awake
esophagram: schatki ring, cervical osteophyte impression
plan:
well chewed foods
gerd precautions
no further w/u at this time.
will sign off call with [facility]
Original Note:
Today's Communication / Plan
-
reviewed esophagram with patient likely osteophytes cause for probe not passing
reviewed slow eating, foods well chewed and chopped with plenty of water stay upright for meals and after eating
no current issues with eating
no plan for EGD at this time
CT MRI ordered by hospitalist
cont management of elevated HR per cardiology
pt currently remain on Eliquis
updated family at bedside
Assessment / Plan
-
Pt is a 82yo with hx PAF on Eliquis, HTN, Aortic regurg, recurrent meningioma resection, prior pericarditis, open hernia repair with onset of lightheadedness. On admission noted with hyponatremia and afib with RVR and went for CV today and noted
difficulty with JESUSITA probe.
05/27 esophagram with barium tablet
Mild diffuse narrowing of the cervical esophagus. In part related to posterior extrinsic impression is result of cervical degenerative disc disease with mild anterior endplate osteophytes.
Mild esophageal dysmotility, likely presbyesophagus.
Small reducible sliding hiatal hernia. Slight prominence of the lower esophageal mucosal ring. It no obstruction to passage of a 13 mm barium tablet.
-difficulty with JESUSITA probe advancement
-occasional dysphagia with noted narrowing of cervical esophagus with post compression, esophageal dymotility mild, presbyesophagus, small HH, prominent ring
-afib with RVR on admission
-hyponatremia
other medical problems:
-HTN
-aortic regurg
-recurrent meningioma with resection
-pericarditis
-open hernia repair
-
PLAN:
reviewed esophagram with patient likely osteophytes cause for probe not passing
reviewed slow eating, foods well chewed and chopped with plenty of water, stay upright for meals and after eating
no current issues with eating
no plan for EGD at this time
CT MRI ordered by hospitalist
cont management of elevated HR per cardiology
pt currently remain on Eliquis
updated family at bedside
Subjective
Subjective
Date of Service: May 29, 2023
05/27 stool, on regular diet no difficulty with eating
Objective
Data Reviewed
Laboratory Data:
Laboratory Results
05/27/23 03:20
05/29/23 04:39
Laboratory Results
Magnesium 2.2 mg/dl (1.6-2.3) 05/28/23 04:02
Total Bilirubin 0.5 mg/dl (0.2-1.3) 05/26/23 12:19
AST 31 U/L (14-36) 05/26/23 12:19
ALT 19 U/L (0-35) 05/26/23 12:19
Alkaline Phosphatase 102 U/L (38-126) 05/26/23 12:19
Vital Signs and I&O:
Vital Signs
Temp Pulse Resp BP Pulse Ox
97.7 F 142 18 139/82 98
05/29/23 07:00 05/29/23 08:41 05/29/23 07:00 05/29/23 08:41 05/29/23 08:00
I&O
05/28/23 05/29/23 05/30/23
06:59 06:59 06:59
Intake Total 780 / 780 450 / 450
Output Total 1750 / 1750 1550 / 1550
Balance -970 / -970 -1100 / -1100
Physical Exam
Physical Exam
HEENT: Anicteric and Moist mucous membranes
Cardiology: Other (tachy-- irregular )
Pulmonary: Clear
GI: Soft and Non Distended
Neuro: Non Focal
--- NOTE | 2023-05-29 14:49 | W.PN.CD ---
Today's Communication / Plan
-
Aim for lenient HR control of AFib (110 or so at rest)
Increase metoprolol to 50 BID
Add digoxin
Continue the Dilt
Anticipate cardioversion in 3 weeks (will hold rate control meds night before and AM of cardioversion)
- CAN CARDIOVERT SOON MAY 18, 2023
Hope to avoid needing AMIO for rate control
55 min spent caring for pt: review records (first I am seeing her, discuss with pt, , son, nursing staff, prepare this document)
Impression / Plan
-
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 Moya, formerly known to Dr. Louie) with paroxysmal atrial fibrillation (on Eliquis), hypertension (white coat element), mild aortic regurgitation, recurrent meningiomas status-post
gamma knife surgery for removal of enlarging meningiomas (at the [facility]), and previous viral pericarditis (2012) presenting with a chief complaint of lightheadedness. She had a right open inguinal hernia repair on
05/21/2023. Found to be in AFIB with RVR.
Parox AFib: now with recurrence with RVR => AFib is persisting
-Patient with suboptimal heart rate control, even on Cardizem drip. Will stop drip this AM.
-Continue Eliquis; doses recently held due to hernia repair surgery, resumed on 05/23/2023.
-Unable to increase metoprolol dose, as patient had heart rates in the 50s in the office when she was in sinus rhythm.
-JESUSITA/cardioversion today
-Oral Anticoagulation: Apixaban 5mg BID, doses held with recent surgery, resumed 05/23/23.
-[id number]: score at least 4 (HTN, age 75 or more, female gender)
Hyponatremia
- Na 123, suspicious for SIADH given significant fluid intake; improving
HTN, with white coat element
Mild aortic regurgitation - stable.
Open right inguinal hernia repair by Dr. Aragon on 05/20/22 - stable.
Physical Exam
Vital Signs/Labs
Vital Signs
Temp Pulse Resp BP Pulse Ox
98.1 F 142 18 139/82 97
05/29/23 12:00 05/29/23 08:41 05/29/23 12:00 05/29/23 08:41 05/29/23 12:00
05/28/23 05/29/23 05/30/23
06:59 06:59 06:59
Actual Weight 63.2 kg 62.8 kg
05/27/23 03:20
05/29/23 04:39
Magnesium 2.2 mg/dl (1.6-2.3) 05/28/23 04:02
TSH 2.13 uIU/ml (0.47-4.68) 05/26/23 12:19
05/26/23
12:19
Rwi-C-Vjnyjurfrss Pept [id number]
Physical Exam
Constitutional: No acute distress
Cardiovascular: Rhythm/rate is irregular and S1S2 is normal
Respiratory: Respiratory effort normal and Lungs clear to auscul.
GI: Soft and Distention absent
Neuro/Psych: AO x 3
Data Reviewed
-
Date of Service: May 29, 2023
[2023-05-29] MEDS: LANOXIN 500 MCG PO (15:14)
--- NOTE | 2023-05-29 16:24 | W.PN.UPDATE ---
Update Note
Progress Note Update
for billing purposes only
[2023-05-29] MEDS: CARDIZEM CD 360 MG PO (17:10)
--- NOTE | 2023-05-29 18:29 | PTCARENOTE ---
Pt remains in afib in the 120's to 170's. Dr. Mcguire notified of increased heart rate. Medicated with po Digoxin as ordered. Pt denies any palpitations or lightheadedness. No c/o of any sob.
[2023-05-29] MEDS: TOPROL XL 50 MG PO (19:40)
--- NOTE | 2023-05-29 21:52 | PTCARENOTE ---
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 POC discussed- pt verbalized understanding.
[2023-05-29] MEDS: TYLENOL 1000 MG PO (22:37)
[2023-05-30 01:50] VITALS: BP 148/92
--- NOTE | 2023-05-30 02:02 | PTCARENOTE ---
Pt rang with a 'fleeting' 08/09 chest pain/pressure off to the right side of her chest- she states that she was 'fighting' with her feet in the blankets when this occurred-Pain lasted less than 1-2 mins. EKG obtained- (AFIB) and placed on 2L NC. HR
has been ranging anywhere from 70s-100s. at the moment- she was more in the 100s-110s range. BP was 148/92. EMIL Bunch aware- orders to add Troponin to morning labs.
[2023-05-30 02:19] VITALS: BP 120/95
[2023-05-30 02:45] LABS: Blood Urea Nitrogen 15 mg/dl (7-17); Calcium 9.9 mg/dl (8.4-10.2); Carbon Dioxide 29 mmol/L (22-30); Chloride 96 mmol/L (98-107); Estimated Creatinine Clearance 53 ml/min; Glucose 88 mg/dl (70-99); Potassium 4.2 mmol/L (3.5-5.1); Sodium 133 mmol/L (135-145); eGFR > 60.00
[2023-05-30 02:51] LABS: Troponin I < 0.012 ng/ml
[2023-05-30 07:06] VITALS: BP 110/82
[2023-05-30 07:13] VITALS: BMI 21.6
[2023-05-30] MEDS: TOPROL XL 50 MG PO (07:34)
[2023-05-30] MEDS: ELIQUIS 5 MG PO (07:34)
[2023-05-30] MEDS: COLACE PO (07:35)
--- NOTE | 2023-05-30 08:24 | W.PN.CD ---
Today's Communication / Plan
-
OK for home on current regimen
Rate control acceptable as we plan cardioversion on June 08, 2023
Will send home w/o Lasix, will need to watch for HF
Impression / Plan
-
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 Moya, formerly known to Dr. Louie) with paroxysmal atrial fibrillation (on Eliquis), hypertension (white coat element), mild aortic regurgitation, recurrent meningiomas status-post
gamma knife [facility]), and previous viral pericarditis (2012) presenting with a chief complaint of lightheadedness. She had a right open inguinal hernia repair on
05/21/2023. Found to be in AFIB with RVR.
Parox AFib: now with recurrence with RVR => AFib is persisting
-Rate much better, not perfect even for lenient goal but good enough
-Oral Anticoagulation: Apixaban 5mg BID, doses held with recent surgery, resumed 05/23/23.
-[id number]: score at least 4 (HTN, age 75 or more, female gender)
Hyponatremia
- Na 123, suspicious for SIADH given significant fluid intake; improving
HTN, with white coat element
Mild aortic regurgitation - stable.
Open right inguinal hernia repair by Dr. Aragon on 05/20/22 - stable.
Physical Exam
Vital Signs/Labs
Vital Signs
Temp Pulse Resp BP Pulse Ox
97.6 F 102 18 110/82 99
05/30/23 07:06 05/30/23 07:06 05/30/23 07:06 05/30/23 07:06 05/30/23 07:06
05/29/23 05/30/23 05/31/23
06:59 06:59 06:59
Actual Weight 62.8 kg 62.5 kg
05/27/23 03:20
05/30/23 02:18
Magnesium 2.2 mg/dl (1.6-2.3) 05/28/23 04:02
TSH 2.13 uIU/ml (0.47-4.68) 05/26/23 12:19
05/26/23
12:19
Ued-Y-Itgabbnphxt Pept 4770
LAB Results
05/30/23
02:18
Troponin I < 0.012
Physical Exam
Constitutional: No acute distress and Comfortable
Cardiovascular: Rhythm/rate is irregular
Respiratory: Respiratory effort normal and Lungs clear to auscul.
GI: Soft and Distention absent
Neuro/Psych: AO x 3
Data Reviewed
-
Date of Service: May 30, 2023
--- NOTE | 2023-05-30 08:49 | W.PN.HOSP.TC ---
Today's Communication/Plan
-
Possible discharge today if HR better
RN to let me know
Assessment / Plan
Assessment / Plan
Cardiovascular system S1-S2 irregular mild tachycardia
Chest CTA
Abdomen soft and nontender
Neuro exam nonfocal
Had mild CP last night better after stretching. Cards aware
# Atrial fibrillation with RVR
JESUSITA/cardioversion was aborted yesterday as endoscope could not be passed
Off Cardizem drip on increased dose of Cardizem-360 mg
Also on metoprolol 50 mg twice daily.
Dig added
Continue Eliquis
Plan to do CV after v3 weeks of Un interrupted AC
#Cervical Spine DJD- Reviewed with ENT unit manager.
Edema likely from attempting to pass scope
No dysphagia
Advised to see spine Doc as OP
knows a doc and will consider that Doc if they decide.
# Hyponatremia
Likely secondary to excess fluid intake and also Afib
Fluid restriction advised
Follow sodium as Op in 1 week
# Hypertension-continue Cardizem for now
Also on metoprolol
# Open right inguinal hernia repair by Dr. Aragon on 05/21/2019
He is aware re hospital admission
# History of endocarditis
# Mild AI
# Ambulatory dysfunction/arthritis
# History of meningioma surgery
# DVT prophylaxis-Eliquis
# Full code
D/W at bed side
D/W
D/W RN
Anticipated Discharge: Today
Subjective/Interval History
-
Date of Service: May 30, 2023
Objective Data
-
Labs:
Laboratory Results
05/30/23
02:18
Sodium 133 L
Potassium 4.2
Chloride 96 L
Carbon Dioxide 29
BUN 15
Creatinine 0.8
Glucose 88
Calcium 9.9
Vital Signs:
Vital Signs
Temp Pulse Resp BP Pulse Ox
97.6 F 102 18 110/82 99
05/30/23 07:06 05/30/23 07:06 05/30/23 07:06 05/30/23 07:06 05/30/23 07:06
I&O
05/29/23 05/30/23 05/31/23
06:59 06:59 06:59
Intake Total 450 / 450
Output Total 1550 / 1550 450 / 450
Balance -1100 / -1100 -450 / -450
[2023-05-30] MEDS: PEPCID 20 MG PO (09:13)
--- NOTE | 2023-05-30 10:39 | PTCARENOTE ---
Pt received this am with no c/o. Denies any chest pain, palpitations or lightheadedness. Remains in afib, rate in the 100's to 140's. Pt ambulating in the [place] with her . Heart rate currently in the 100's.
[2023-05-30] MEDS: LANOXIN 125 MCG PO (11:21)
[2023-05-30 11:24] VITALS: BP 103/66
[2023-05-30 11:27] VITALS: BP 103/66
--- NOTE | 2023-05-30 11:43 | W.DS.TRANS ---
DC Summary - Sr. Operations Manager
-
Discharge Instructions:
Sleep Apnea Risk Low
Discharge Diagnosis/Procedures Atrial fibrillation with rapid ventricular rate,
cervical spine degenerative change,
hyponatremia, hypertension, recent inguinal
hernia repair,
Additional Diets well chewed foods, fluids 50 to 54 ounces
Activity As tolerated
Driving Restrictions As prior to admission
Blood Work BMP 1 week
Other Services VN
Instructions:
Stand-Alone Forms:
Changes to Home Medications: Yes
Discharge Medications:
DC Medications w/original date entered in [employer]
acetaminophen 500 mg tablet 1,000 mg PO QIDPRN PRN mild pain 05/15/23
calcium citrate 250 mg PO DAILY Supplement ##0 05/15/23
cyanocobalamin (vitamin B-12) 1,000 mcg tablet (Vitamin B-12) 1,000 mcg PO DAILY Supplement 05/15/23
docusate sodium 100 mg capsule (Colace) 100 mg PO BID Constipation 05/26/23
polyethylene glycol 3350 17 gram oral powder packet (Miralax) 17 g PO DAILYPRN PRN constipation 05/26/23
apixaban 5 mg tablet (Eliquis) 5 mg PO BID Blood clot prevention/tx #0 tabs 05/30/23
digoxin 125 mcg (0.125 mg) tablet 125 mcg PO NOON Arrhythmia #30 tabs 05/30/23
diltiazem HCl 180 mg capsule,extended release 24 hr 360 mg (2 x 180 mg) PO QPM Arrhythmia #60 caps 05/30/23
famotidine 20 mg tablet 20 mg PO BID #60 tabs 05/30/23
metoprolol succinate 50 mg tablet,extended release 24 hr 50 mg PO BID Arrhythmia #60 tabs 05/30/23
Home Medication Changes
Metoprolol dose increased, diltiazem dose increased, digoxin is new
Famotidine is new
Pending Results: No
[2023-05-30] MEDS: PREVNAR 20 0.5 ML IM (13:02)
--- NOTE | 2023-05-30 13:43 | PTCARENOTE ---
Pt remains with heart rate in the 90's to 120's. 140's after ambulating but quickly back to the 100's. Pt discharged to home with her . Discharge instructions given and reviewed with good understanding.
== END 2023-05-30 13:41 | disposition home health service (06) | DRG 309 ==
LOC: IVU 14:52
PROVIDERS: Nurse Practitioner Family; Physician Assistant Medical; ADMITTING PHYSICIAN Hospitalist; CONSULT PHYSICIAN Internal Medicine Cardiovascular Disease; CONSULT PHYSICIAN Internal Medicine Gastroenterology; EMERGENCY PHYSICIAN Emergency Medicine; FAMILY PHYSICIAN Internal Medicine
DX: I48.0 Paroxysmal atrial fibrillation (principal); E22.2 Syndrome of inappropriate secretion of antidiuretic hormone; Z79.01 Long term (current) use of anticoagulants; I50.9 Heart failure, unspecified; I11.0 Hypertensive heart disease with heart failure
CPT/HCPCS: 71045; 72141; 74221; 80048; 80053; 82533; 83735; 83880; 83930; 83935; 84300; 84443; 84484; 85027; 90677; 93005; 93312; 96361; 96374; 96375; 96376; 99291; G0009

== ENCOUNTER 2023-06-20 16:31 | Inpatient (IN) | payer MEDICARE, SELFPAY ==
[2023-06-20] VITALS (31 sets, daily range): BP systolic 72–159; BP diastolic 45–123; BMI 21.3; BMI 21.0
[2023-06-20 12:27] LABS: % Basophils 0.3 % (0-2); % Eosinophils 0.6 % (0-6); % Immature Granulocytes 0.1 % (0-0.5); % Lymphocytes 21.6 % (20.5-51.1); % Monocytes 8.7 % (1.7-9.3); % Neutrophils 68.7 % (42.2-75.2); Absolute Lymphocytes 1.5 10^3/uL (1.2-3.4); Absolute Monocytes 0.6 10^3/uL (0.1-0.6); Absolute Neutrophils 4.8 10^3/uL (1.4-6.5); Hematocrit 40.8 % (37.0-47.0); Mean Corp Hgb Conc. 34.3 g/dL (33.0-37.0); Mean Corpuscular Hgb 31.3 pg (27.0-31.0); Mean Corpuscular Volume 91.1 fL (81.0-99.0); Mean Platelet Volume 9.7 fL (7.4-10.4); Nucleated Red Blood Cells % 0 %; Platelet Count 330 10^3/uL (130-400); Red Blood Cell Count 4.48 10^6/uL (4.20-5.40); Red Cell Dist. Width 12.4 % (11.5-14.5); White Blood Cell Count 6.9 10^3/uL (4.8-10.8)
[2023-06-20 12:58] LABS: ALT (SGPT) 27 U/L (0-35); AST (SGOT) 22 U/L (14-36); Albumin 4.3 g/dl (3.5-5.0); Alkaline Phosphatase 131 U/L (38-126); Blood Urea Nitrogen 13 mg/dl (7-17); Carbon Dioxide 28 mmol/L (22-30); Chloride 101 mmol/L (98-107); Estimated Creatinine Clearance 53 ml/min; Glucose 102 mg/dl (70-99); Potassium 4.4 mmol/L (3.5-5.1); Sodium 133 mmol/L (135-145); Total Bilirubin 0.4 mg/dl (0.2-1.3); eGFR > 60.00
[2023-06-20 13:09] LABS: TSH Reflex To Free T4 2.24 uIU/ml (0.47-4.68)
--- NOTE | 2023-06-20 13:11 | ED.GENMED ---
History of Present Illness
General
Chief Complaint: Heart Rate Problem
Source: patient, records and spouse
Exam Limitations: none
Time Seen by Provider: 06/20/23 11:56
Nursing documentation reviewed up to this point in time: agreed with
Travel History
Have you had any contact with someone who has COVID-19?: No
Do you have any symptoms of coronavirus? Fever > 100 degrees, chills, cough, shortness of breath, sore throat, loss of taste or smell, muscle aches, or headache?: No
History of Present Illness
History of Present Illness:
Patient is a 82-year-old female with a history of atrial fibrillation and compliance with Eliquis who presents to the emergency department after waking melanite with palpitations and feeling tired. Patient's heart rate was elevated and was told to
come to the emergency department after taking an extra dose of diltiazem. Patient had surgery at the end of April but has been on her diltiazem and and Lopressor at half the dose since that time. In addition the patient is been taking her Eliquis
as instructed since then. Patient denies fever or chills. Patient does admit to feeling weak but denies any chest pain, shortness of breath. Patient denies any GI or symptoms. Patient denies any leg pain or swelling.
Past History
Past History
ED Past Medical History: Arrthythmia (Atrial fibrillation), HTN, Valvular disease (Endocarditis) and Other (UTI, uterine fibroids); Negative Asthma, CAD, Cancer, CHF, Hypercholesterolemia or NIDDM
ED Past Surgical History: Appendectomy, and Other (Meningioma surgery, friable iridectomy,); Negative Cardiac
Patient has exhibited threatening behavior?: No
Social History
Tobacco: 2nd hand smoke exposure (Father was a smoker, patient reports she has been told her lungs 'look like a smokers, but I have never smoked')
Alcohol: Occasional
Drug: None
Personal:
Living: with family
Employment: Retired
Family History
Family History: Other (Noncontributory)
Review of Systems
Review of Systems
All Other Systems: ROS reviewed and negative except as documented in HPI and ROS
Constitutional: Reports fatigue; Denies fever or chills
EENT: Reports no symptoms
Respiratory: Reports no symptoms
Cardiac: Reports no symptoms
ABD/GI: Reports no symptoms
: Reports no symptoms
Musculoskeletal: Reports no symptoms
Skin: Reports no symptoms
Neurological: Reports no symptoms
Hematologic/Lymphatic: Reports no symptoms
Phy Exam
Physical Exam
Physical Exam:
Physical Exam
General: No apparent distress, alert and appropriate, well nourished, well hydrated
HENT: Normocephalic, supple with no lymphadenopathy, no thyromegaly
Eyes: Clear sclera, conjuctiva without injection
Heart: irregular irregular rhythm and tachycardic rate. No S3, S4. No murmur. No NVD, bruit
Lungs: No respiratory distress, no stridor, lung sounds clear and equal bilaterally, chest wall symmetrical and nontender
Abdomen: Soft, nontender, no organomegaly, no CVA tenderness, BS good
Neuro: Alert and oriented x 3, CN II - XII intact, no motor focality, no cerebellar dysfunction
Skin: no rash
Psychiatric: well kept. interactive and cooperative
Extremities: No edema, cyanosis, tenderness, Good and equal peripheral pulses.
Course
Orders/Labs/Results
Orders:
Orders
06/20/23 11:44
Electrocardiogram (*1) Urgent
Reason for Study: Atrial Fibrillation
EKG- Treatment ONCE
06/20/23 12:16
Complete Blood Count/With Diff Urgent
Comprehensive Metabolic Panel Urgent
Magnesium Urgent
TSH Reflex To Free T4 Urgent
06/20/23 13:24
Propofol [Diprivan] 20 ml .ROUTE .STK-MED
06/20/23 14:18
Propofol [Diprivan] 50 mg IV NOW STA
06/20/23 14:24
Propofol [Diprivan] 30 mg IV NOW STA
06/20/23 14:43
Diltiazem HCl [Cardizem] 10 mg IV NOW STA
06/20/23 14:45
Diltiazem 125 mg/125 ml Nss [Cardizem] 125 mg in 125 ml IV PER PROTOCOL
Initial dose in mg/hr, then titrate:: 10
Titrate to keep:: Heart rate 80-100 bpm
Titrate by mg/hr:: 5 mg/hr
Frequency of titrations (minutes):: 15
Maximum dose in mg/hr:: 15
Abnormal Lab Results
06/20/23
12:16
MCH 31.3 H pg
(27.0-31.0)
Sodium 133 L mmol/L
(135-145)
Glucose 102 H mg/dl
(70-99)
Alkaline Phosphatase 131 H U/L
(38-126)
06/20/23 12:16
06/20/23 12:16
Vital Signs
Initial and Last Documented VS:
Initial Vital Signs
Temp Pulse Resp BP Pulse Ox
98.1 F 83 18 158/90 99
06/20/23 11:42 06/20/23 11:42 06/20/23 11:42 06/20/23 11:42 06/20/23 11:42
Last Documented Vital Signs
Temp Pulse Resp BP Pulse Ox
97.8 F 118 12 152/93 100
06/20/23 14:58 06/20/23 15:09 06/20/23 15:00 06/20/23 15:09 06/20/23 15:00
Procedures
Moderate Sedation
ASA Risk Score: Class II
Chart and allergies reviewed: Yes
Consent for anesthesia obtained: Yes
Time out completed (validating right patient & procedure): Yes
History of difficult intubation: No
Airway free of obstruction: Yes
Patient has a gag reflex: Yes
Patient is able to open mouth: Yes
Patient has no dentures: Yes
Patient has no loose teeth: Yes
Medication administered by Provider during Moderate Sedation: IV Propofol (mg)
Total dose administered: 80
Time drug administered: 20:18
Start Time: 20:18
Stop Time: 20:28
Cardioversion
Indication:: Afib
Performed by:: demetrius
Synchronized?: Yes
Energy Used: Other (Started at 100, next 150, then 200, then 300 followed by 360)
Number of attempts: 7
Successful?: No
Complications: none
ASA Risk Score: Class II
Any reaction or bad outcome to prior sedation/anesthesia?: No history of a reaction
Sedation level to be attained: deep
Chart and allergies reviewed: Yes
Patient reassessed prior to sedation: Yes
Time out completed at (validating right patient & procedure): 14:08
History of difficult intubation: No
Airway free of obstruction: Yes
Patient has a gag reflex: Yes
Patient is able to open mouth: Yes
Patient has no dentures: Yes
Patient has no loose teeth: Yes
Medication administered by Provider during Moderate Sedation: IV Propofol (mg)
Total dose administered: 80
Time drug administered: 20:18
Start Time: 20:18
Stop Time: 20:28
*Radiology
Radiology exam reviewed: other (na)
*Pulse Oximetry
Patient hypoxic: no
*EKG
Interpreted by ED Provider?: Yes
EKG Intrepretation Date: 06/20/23
EKG Intrepretation Time: 13:18
Interpretation: abnormal
Comparison EKG: changes noted
Heart Rate: 140
Rate: tachycardiac
Rhythm: a-fib
[place]: normal axis
Interval: normal QT interval
QRS Pattern: normal QRS
Ischemia: non-specific ST changes
*Geophysical Laboratory Director Interpretation
Rate: tachycardiac
Interpretation: abnormal
Heart Rate: 150
Rhythm: a-fib
*Critical Care Note
Total Time (30-74mins, 75-104mins- exclusive of procedures): Not Applicable
Update Note
Update Note:
Patient was not able to be cardioverted. Will continue slow patient with IV diltiazem and contact cardiology
ED Attending Note
-
Portions of this chart may have been created with voice recognition software.� Occasional wrong word or��sound alike� substitutions may have occurred due to the inherent limitations of voice recognition software.
Discharge Plan
Departure
Patient Disposition: Admit
Date of Disposition: 06/20/23
Time of Disposition: 14:49
Admit to: Telemetry
Admit to doctor: Hospitalist
Presentation/result/management discussed w/ accepting MD/DO: Cardiology
Patient with high blood pressure during this ER visit?: No
Condition: Fair
Covid-19: Not Applicable
Discharge Problem:
Atrial fibrillation, rapid, Unsuccessful cardioversion
Prescriptions:
No Action
cyanocobalamin (vitamin B-12) [Vitamin B-12] 1,000 mcg Tablet
1,000 mcg PO DAILY
calcium citrate 250 mg calcium Tablet
250 mg PO DAILY Qty: 0
acetaminophen 500 mg Tablet
1,000 mg PO QIDPRN PRN (Reason: mild pain)
polyethylene glycol 3350 [Miralax] 17 gram Powder In Packet
17 g PO DAILYPRN PRN (Reason: constipation)
docusate sodium [Colace] 100 mg Capsule
100 mg PO BID
Eliquis 5 MG tablet
5 mg PO BID Qty: 0 0RF
diltiazem HCl 240 mg Capsule,Extended Release 24 Hr
240 mg PO QPM
Rx Instructions:
dose changed on 06/19/23
metoprolol succinate 50 mg tablet extended release 24 hr
25 mg PO BID
Referrals:
Demi Galvez MD [Family Provider] -
Interventions
Interventions:
*Risk Screen - Suicide Last Done: 06/20/23 12:19
*General Assessment Last Done: 06/20/23 12:19
*Neglect/Abuse Screening Last Done: 06/20/23 12:19
ED- Fall Risk Assessment Last Done: 06/20/23 12:18
*ED COVID-19 Vaccine History Last Done: 06/20/23 12:18
ED- Cardiac Assessment Last Done: 06/20/23 12:20
ED- Pulmonary Assessment Last Done: 06/20/23 12:20
Discharge Date and Time
Print Language: GEORGIAN
[2023-06-20] MEDS: DIPRIVAN 50 MG IV (14:18)
[2023-06-20] MEDS: DIPRIVAN 30 MG IV (14:24)
--- NOTE | 2023-06-20 14:59 | HPS.HSE ---
Addendum entered and electronically signed by Anu Molina MD 06/20/23 16:13:
Patient seen and examined independently--agree with [employer] [employer] note
GENERAL: well developed, well nourished, female in no apparent distress
HEENT: NC/AT no O2
HEART: irreg irreg
LUNGS : clear to auscultation bilaterally
ABDOM: soft, nontender, nondistended, + bowel sounds
EXT: no cyanosis, clubbing, or edema
NEUROLOGIC: grossly intact
weakness, SOB, palpitations--due to paroxysmal A-fib with RVR--was hospitalized end of April for the same and meds were increased from 25 mg BID metoprolol to 50mg BID and diltiazem 240 mg to 360mg--then saw cardiology in office, was sinus rhythm
and took the original does of meds per cards--now back in afib--placed on diltiazem drip--agree with IVU admission--had attempted cardioversion x 7 in ED--consult cards for further management
chronic Hyponatremia--follow--off fluid restriction per pt
Essential Hypertension--metoprolol and cardizem drip
Open right inguinal hernia repair by Dr. Aragon on 05/21/2023
History of endocarditis
History of meningioma surgery
DVT prophylaxis-Eliquis
code status--Full code
Original Note:
Family Physician
-
Family Physician: Demi Galvez
Chief Complaint
-
sob
palpitation
History of Present Illness
82-year-old female with a history of atrial fibrillation, hypertension, valvular disease, UTI, uterine fibroids presented to us with palpitation, fatigue and tired since last night.patient was usually taking 25 twice a day metoprolol and Cardizem to
240 at bedtime. Patient was admitted here at the end of April , and her Cardizem was increased to 360 and metoprolol 50bid. Patient was evaluated by cardiology meanwhile and her Cardizem and Lopressor was changed to her previous dose. Last night
patient was very tired and short of breath was worse with exertion. Patient denied any chest pain .patient denied any headache,syncopal episode. Denied dizzy. Patient denied any abdominal pain, nausea, vomiting, diarrhea. Patient denied dysuria
hematuria.
On arrival patient was A-fib with RVR. Cardioverted x 7 with no relief in her symptoms. Patient started on Cardizem drip. Admitting for further management
Medical History
Past Medical History
Past Medical History: Reports Other
Additional Past Medical History:
B12 deficiency
Paroxysmal A-fib
Pericarditis
Colon polyps
Aortic valve regurgitation
Hypertension
Coronary artery disease
Past Surgical History: Reports Other
Additional Past Surgical History:
Surgery for frontal osteoma
Right retinal surgery
Myomectomy
Appendectomy
Excision of 2 meningeal mass
Hip replacement
Social History
Tobacco: Non-smoker
Alcohol: None
Drug: None
Personal:
Living: With Family
Family History
Family History: Not pertinent
Allergies / Home Medications
Allergies reflects when Allergies were last updated in [employer].
Home Medications with original date entered in [employer]
Allergy/Medication List:
Allergies
Allergy/AdvReac Type Severity Reaction Status Date / Time
cat dander Allergy congestion, Verified 06/20/23 11:20
itchy
eyes,
sneezing
pollen extracts Allergy HAYFEVER-congestion, Verified 06/20/23 11:20
itchy
eyes,
sneezing
Home Medications
acetaminophen 500 mg tablet 1,000 mg PO QIDPRN PRN mild pain 05/15/23
calcium citrate 250 mg PO DAILY Supplement ##0 05/15/23
cyanocobalamin (vitamin B-12) 1,000 mcg tablet (Vitamin B-12) 1,000 mcg PO DAILY Supplement 05/15/23
docusate sodium 100 mg capsule (Colace) 100 mg PO BID Constipation 05/26/23
polyethylene glycol 3350 17 gram oral powder packet (Miralax) 17 g PO DAILYPRN PRN constipation 05/26/23
apixaban 5 mg tablet (Eliquis) 5 mg PO BID Blood clot prevention/tx #0 tabs 05/30/23
diltiazem HCl 240 mg capsule,24 hr,extended release 240 mg PO QPM 06/20/23
metoprolol succinate 50 mg tablet,extended release 24 hr 25 mg PO BID Arrhythmia 06/20/23
Review of Systems
-
Constitutional: Reports Fatigue
EENT: Reports No Symptoms
Respiratory: Reports Trouble Breathing
Cardiac: Reports Palpitations
Abdomen/GI: Reports No Symptoms
: Reports No Symptoms
Musculoskeletal: Reports No Symptoms
Skin: Reports No Symptoms
Neurological: Reports No Symptoms
Endocrine: Reports No Symptoms
Hematologic/Lymphatic: Reports No Symptoms
Psych: Reports No Symptoms
Physical Exam
Vital Signs
Vital Signs
Temp Pulse Resp BP Pulse Ox
98.2 F 120 17 113/82 100
06/20/23 14:28 06/20/23 14:43 06/20/23 14:43 06/20/23 14:43 06/20/23 14:43
Physical Exam
General: Well Developed, Well Nourished and No Apparent Distress
HEENT: NormoCephalic, Moist mucous membranes and Atraumatic
Respiratory: Clear
Cardiac: S1/S2 and Regular Rhythm; No Murmur or Rub
GI: Soft, Non Tender, Non Distended and Normal Bowel Sounds; No Organomegaly
Rectal: Deferred by Provider
Musculoskeletal: No Clubbing, No Cyanosis and No Edema
Skin: No Rash
Neuro: AO x 3 and Nonfocal/grossly intact
Psych: Calm
Laboratory Results
-
06/20/23 12:16
06/20/23 12:16
Laboratory Results
Total Bilirubin 0.4 mg/dl (0.2-1.3) 06/20/23 12:16
AST 22 U/L (14-36) 06/20/23 12:16
ALT 27 U/L (0-35) 06/20/23 12:16
Alkaline Phosphatase 131 U/L (38-126) H 06/20/23 12:16
Data Reviewed
-
Lab Data: Labs Reviewed by me
Impression/Plan
-
# A-fib with RVR
-Heart rate in the 100-160s
-EKG with A-fib with RVR, ST and T wave abnormality
-on Cardizem dean
-cardiology consulted
-metoprolol continued
# chronic Hyponatremia
-ctm
# Hypertension
- on metoprolol
# Open right inguinal hernia repair by Dr. Aragon on 05/21/2023
# History of endocarditis
# History of meningioma surgery
# DVT prophylaxis-Eliquis
# Full code
[2023-06-20] MEDS: CARDIZEM 125 IV (15:09)
[2023-06-20] MEDS: CARDIZEM 10 MG IV (15:09)
--- NOTE | 2023-06-20 15:35 | CON.CAR ---
Addendum entered and electronically signed by Sean Diaz MD 06/21/23 12:04:
note . ER performed unsuccessful attempt at cardioversion 06/20/23
Original Note:
Consultation
Consultation Request
Date/Time Consultation Requested: 06/20/2023 at 1530
Date/Time Consultation Performed: 06/20/2023 at 1545
Requesting Provider: Hospitalist
Performing Provider: Dr. Diaz
Reason for Consultation: A-fib
Medical History
-
History of Present Illness:
Primary culturist Dr Moya
82 year-old female with paroxysmal atrial fibrillation (on Eliquis), hypertension (white coat element), mild aortic regurgitation, recurrent meningiomas status-post gamma knife surgery for removal of enlarging meningiomas (at the [facility]), and previous viral pericarditis (2012) patient had a hospitalization back in May 2023 with A-fib with RVR which occurred after a hernia repair.
After her previous admission the patient discharged on Eliquis 5 mg twice daily digoxin 0.125 mg daily and diltiazem CD at the time of her 180 mg twice daily as well as metoprolol succinate 50 mg BID
She was seen back in our office on 06/12/2023 and was noted to have sinus bradycardia with a heart rate of 44 bpm. Digoxin was discontinued she was seen back in follow-up on 06/19/2023 and heart rate was 40 and sinus bradycardia at that point
diltiazem was reduced from a total of 360 mg a day to 240 mg daily and metrolol reduced to 25mg BID. she now returns in afib. Emmie noticed she did not feel well and was urinating frequenly . fatigue No CP or SOB
no fever or illness. No ETOH
Past Medical History
Past Medical History: Other (As noted in HPI)
Social History
Personal:
Living: With Family
Family History
Family History: CAD (Negative for premature CAD)
Allergies / Home Medications
Allergy/AdvReac Type Severity Reaction Status Date / Time
cat dander Allergy congestion, Verified 06/20/23 11:20
itchy
eyes,
sneezing
pollen extracts Allergy HAYFEVER-congestion, Verified 06/20/23 11:20
itchy
eyes,
sneezing
�Medication �Instructions �Recorded �Confirmed �Type
acetaminophen 500 mg tablet 1,000 mg PO QIDPRN PRN mild pain 05/15/23 06/20/23 History
calcium citrate 250 mg PO DAILY Supplement ##0 05/15/23 06/20/23 History
cyanocobalamin (vitamin B-12) 1,000 mcg PO DAILY Supplement 05/15/23 06/20/23 History
1,000 mcg tablet (Vitamin B-12)
docusate sodium 100 mg capsule 100 mg PO BID Constipation 05/26/23 06/20/23 History
(Colace)
polyethylene glycol 3350 17 gram 17 g PO DAILYPRN PRN constipation 05/26/23 06/20/23 History
oral powder packet (Miralax)
apixaban 5 mg tablet (Eliquis) 5 mg PO BID Blood clot 05/30/23 06/20/23 Rx
prevention/tx #0 tabs
diltiazem HCl 240 mg capsule,24 240 mg PO QPM 06/20/23 06/20/23 History
hr,extended release
metoprolol succinate 50 mg 25 mg PO BID Arrhythmia 06/20/23 06/20/23 History
tablet,extended release 24 hr
Review of Systems
-
All other systems: Negative unless noted
Physical Exam
Vital Signs
Temp Pulse Resp BP Pulse Ox
97.8 F 118 12 152/93 100
06/20/23 14:58 06/20/23 15:09 06/20/23 15:00 06/20/23 15:09 06/20/23 15:00
Lab Results
06/20/23 12:16
06/20/23 12:16
Physical Exam
General: Well Developed
HEENT: Normocephalic and Anicteric
Respiratory: Other (n wheezes rales or rhonchi)
Cardiac: Irregular Rhythm
GI: Soft, Non Tender, Non Distended and Organomegaly (none)
Musculoskeletal: No Clubbing, No Cyanosis and No Edema
Skin: Warm and Rash (none)
Neuro: Awake, Alert and Oriented
Psych: Calm
Impression / Plan
-
Atrial fibrillation- PAF. spontaneous conversion after last episdoe. She wa on alot of rate control meds and was bradycardic. Now with recurrent afib
- patient has had accelrat
-Continue rate control with IV Cardizem keep at 5 mg
-Eliquis
- will see if she spontaneousdly converts and then based on rates can consider appropriate therapy. May consider addtional rhyhtm control meds. If too much tachybrady a pacer is a consideration. We also did discuss ablation
Data Reviewed
-
EKG: Report Reviewed by me
Radiology: Report Reviewed by me
Medical Tests (Nuc Med, Echo etc): Report Reviewed by me
Labs: Labs Reviewed by me
[2023-06-20] MEDS: TYLENOL 1000 MG PO ×2 (16:31→22:39)
--- NOTE | 2023-06-20 19:05 | PTCARENOTE ---
Assumed care of pt upon tsf from ED. Pt arrives awake and alert, Ox3. CM shows AF 70-100's with Cardizem drip running at 10 mg/hr. Spoke with Dr. Diaz, order received to keep Cardizem drip at 5 mg/hr. POX 95% on RA. She denies any pain or
discomfort, oriented to room and surroundings.
[2023-06-20] MEDS: COLACE 100 MG PO (19:11)
[2023-06-20] MEDS: ELIQUIS 5 MG PO (19:11)
[2023-06-20] MEDS: TOPROL XL 25 MG PO (19:11)
--- NOTE | 2023-06-20 21:25 | PTCARENOTE ---
Pt received start of shift, HR Afib 80s-110s. Cardizem infusing at 5mg/hr. Pt educated on plan of care, pt states no questions at this time. Pt denies any CP, SOB, or lightheadedness/dizziness at this time. Informed to notify RN if any changes, call
snow within reach.
Pt c/o slight burning pain at 1/10 at sites where CV pads were on pt, slight redness noted in area as well. ALLENPA Timothy notified, Maya ordered.
[2023-06-20] MEDS: SILVADENE 1 APPLIC TOPICAL (21:41)
[2023-06-21] VITALS (16 sets, daily range): BP systolic 84–135; BP diastolic 64–99; BMI 21.0
[2023-06-21] MEDS: SILVADENE 1 APPLIC TOPICAL (01:42)
[2023-06-21 04:07] LABS: Hematocrit 44.9 % (37.0-47.0); Hemoglobin 15.5 g/dL (12.0-16.0); Mean Corp Hgb Conc. 34.5 g/dL (33.0-37.0); Mean Corpuscular Hgb 30.8 pg (27.0-31.0); Mean Corpuscular Volume 89.1 fL (81.0-99.0); Mean Platelet Volume 9.6 fL (7.4-10.4); Platelet Count 349 10^3/uL (130-400); Red Blood Cell Count 5.04 10^6/uL (4.20-5.40); Red Cell Dist. Width 12.3 % (11.5-14.5); White Blood Cell Count 6.7 10^3/uL (4.8-10.8)
[2023-06-21 04:28] LABS: Blood Urea Nitrogen 11 mg/dl (7-17); Calcium 10.4 mg/dl (8.4-10.2); Carbon Dioxide 26 mmol/L (22-30); Chloride 100 mmol/L (98-107); Estimated Creatinine Clearance 59 ml/min; Glucose 98 mg/dl (70-99); Potassium 4.3 mmol/L (3.5-5.1); Sodium 136 mmol/L (135-145); Total Cholesterol 217 mg/dl (50-199); Triglyceride 77 mg/dl (10-149); Very Low Density Lipoprotein 15 mg/dl (0-30); eGFR > 60.00
[2023-06-21 04:38] LABS: HDL Cholesterol 119 mg/dl; LDL Cholesterol, Calculated 83 mg/dl
[2023-06-21] MEDS: ELIQUIS 5 MG PO ×2 (08:09→19:19)
[2023-06-21] MEDS: OSCAL CAL 500 250 MG PO (08:09)
[2023-06-21] MEDS: COLACE 100 MG PO ×2 (08:09→19:19)
[2023-06-21] MEDS: TOPROL XL 25 MG PO ×2 (08:10→18:24)
[2023-06-21] MEDS: VITAMIN B-12 1000 MCG PO (08:11)
[2023-06-21] MEDS: CARDIZEM 125 IV (08:13)
--- NOTE | 2023-06-21 09:14 | W.PN.CD ---
Today's Communication / Plan
-
Continue current medical therapy.
Impression / Plan
-
Atrial fibrillation- PAF. spontaneous conversion after last episode. She wason alot of rate control meds and was bradycardic in sinus. Digoxin was discontinued. Then Cardizem and metoprolol reduced patient now with recurrent A-fib with RVR.
-Remains in A-fib overnight.
-Continue rate control with IV Cardizem keep at 5 mg
-Eliquis
-Reviewed issues with patient regarding additional antiarrhythmic therapy but also discussed potential limits if she is having issues with tacky bradycardia. We also discussed issues including pacemaker as well as ablation.
Physical Exam
Vital Signs/Labs
Vital Signs
Temp Pulse Resp BP Pulse Ox
98.4 F 107 18 135/92 98
06/21/23 07:07 06/21/23 03:45 06/21/23 07:07 06/21/23 03:31 06/21/23 07:07
06/20/23 06/21/23 06/22/23
06:59 06:59 06:59
Actual Weight 60.8 kg
06/21/23 03:39
06/21/23 03:39
Magnesium 2.0 mg/dl (1.6-2.3) 06/20/23 12:16
Triglycerides 77 mg/dl (10-149) 06/21/23 03:39
LDL Cholesterol, Calc 83 mg/dl 06/21/23 03:39
VLDL Cholesterol, Calc 15 mg/dl (0-30) 06/21/23 03:39
HDL Cholesterol 119 mg/dl 06/21/23 03:39
Physical Exam
EENT: Anicteric
Cardiovascular: Rhythm/rate is irregular
Respiratory: Respiratory effort normal
GI: Soft
Neuro/Psych: Alert
Data Reviewed
-
Date of Service: June 21, 2023
Medical Decision Making: Reviewed Test Results
X-Ray/CT/US/MRI/NUC/PET: Report Reviewed by me
Medical Tests (PFT, Pathology etc): Report Reviewed by me
Labs: Labs Reviewed by me
--- NOTE | 2023-06-21 09:23 | PTCARENOTE ---
patients HR in the 160's, patient asymptomatic sitting up in chair, VSS. Dr. Diaz on floor instructed to increase IV Cardizem drip to 10cc/hr, after an hour BP 84/64, decreased IV Cardizem to 5cc/hr and notified Dr. Diaz, repeat BP 97/63.
--- NOTE | 2023-06-21 09:24 | W.PN.HOSP.TC ---
Today's Communication/Plan
-
on cardizem drip at 5 per cardiology
further management per them
Assessment / Plan
Assessment / Plan
pt is an 82 year old female
weakness, SOB, palpitations--due to paroxysmal A-fib with RVR (pt does not feel her increased HR all the time)--was hospitalized end of April for the same and meds were increased from 25 mg BID metoprolol to 50mg BID and diltiazem 240 mg to
360mg--then saw cardiology in office, was sinus rhythm and took the original does of meds per cards--now back in afib--placed on diltiazem drip--agree with IVU admission--had attempted cardioversion x 7 in ED--await cards for further
management--discussing pacemaker
chronic Hyponatremia--follow--off fluid restriction per pt--resolved
Essential Hypertension--metoprolol and cardizem drip
Open right inguinal hernia repair by Dr. Aragon on 05/21/2023
History of endocarditis
History of meningioma surgery
DVT prophylaxis-Eliquis
code status--Full code
Anticipated Discharge: > 48 hours
Subjective/Interval History
-
Date of Service: June 21, 2023
pt c/o chest and neck pain (burning) likely from 7 attempted cardioversions
Objective Data
-
Labs:
Laboratory Results
06/21/23
03:39
WBC 6.7
Hgb 15.5
Hct 44.9
Plt Count 349
Sodium 136
Potassium 4.3
Chloride 100
Carbon Dioxide 26
BUN 11
Creatinine 0.7
Glucose 98
Calcium 10.4 H
Vital Signs:
max temp for 24 hours
06/20/23
19:59
Temp 98.2 F
Vital Signs
Temp Pulse Resp BP Pulse Ox
98.4 F 107 18 135/92 98
06/21/23 07:07 06/21/23 03:45 06/21/23 07:07 06/21/23 03:31 06/21/23 07:07
I&O
06/20/23 06/21/23 06/22/23
06:59 06:59 06:59
Intake Total 240 / 240
Balance 240 / 240
Review of Systems
-
All other systems: Reviewed and negative
Skin: Reports Other (chest and neck pain)
Physical Exam
-
General: Well Developed, Well Nourished and No Apparent Distress
HEENT: Normocephalic and Atraumatic; Negative Oxygen
Respiratory: Clear to Auscultation; Negative Wheezes or Rhonchi
Cardiac: Irregular Rhythm and Tachycardic
GI: Soft, Nontender, Nondistended and Normal Bowel Sounds
Musculoskeletal: No Clubbing, No Cyanosis and No Edema
Skin: Other (burn area on anterior left chest wall)
Neuro: Awake and Alert
Psych: Calm
[2023-06-21] MEDS: ULTRAM 12.5 MG PO (10:09)
[2023-06-21] MEDS: MIRALAX 17 GRAMS PO (10:14)
--- NOTE | 2023-06-21 10:22 | PTCARENOTE ---
Ultram po given for cabrera from cardioversion and neck pain. also patient c/o constipation, Miralax po given as ordered.
--- NOTE | 2023-06-21 19:30 | PTCARENOTE ---
pt is aaox3. still in afib w/ [id number]'s. remains on IV Cardizem to 5ml/hr. pt has not c/o lightheadedness or dizziness. ot is sitting in chair w/ call snow in reach
[2023-06-21] MEDS: TYLENOL 1000 MG PO (21:19)
[2023-06-22] VITALS (8 sets, daily range): BP systolic 98–146; BP diastolic 54–85; BMI 21.0
[2023-06-22 04:44] LABS: Hematocrit 40.3 % (37.0-47.0); Hemoglobin 14.2 g/dL (12.0-16.0); Mean Corp Hgb Conc. 35.2 g/dL (33.0-37.0); Mean Corpuscular Hgb 30.9 pg (27.0-31.0); Mean Corpuscular Volume 87.8 fL (81.0-99.0); Mean Platelet Volume 9.8 fL (7.4-10.4); Platelet Count 353 10^3/uL (130-400); Red Blood Cell Count 4.59 10^6/uL (4.20-5.40); Red Cell Dist. Width 12.5 % (11.5-14.5); White Blood Cell Count 7.5 10^3/uL (4.8-10.8)
[2023-06-22 05:08] LABS: Blood Urea Nitrogen 14 mg/dl (7-17); Calcium 9.7 mg/dl (8.4-10.2); Carbon Dioxide 25 mmol/L (22-30); Chloride 100 mmol/L (98-107); Estimated Creatinine Clearance 59 ml/min; Glucose 83 mg/dl (70-99); Potassium 4.7 mmol/L (3.5-5.1); Sodium 130 mmol/L (135-145); eGFR > 60.00
[2023-06-22] MEDS: TOPROL XL 25 MG PO (08:51)
[2023-06-22] MEDS: VITAMIN B-12 PO (08:51)
[2023-06-22] MEDS: COLACE 100 MG PO ×2 (08:51→20:06)
[2023-06-22] MEDS: OSCAL CAL 500 250 MG PO (08:53)
[2023-06-22] MEDS: ELIQUIS 5 MG PO ×2 (08:53→20:06)
[2023-06-22] MEDS: FLUSH (NSS) 1 FLUSH IV (08:54)
[2023-06-22] MEDS: CARDIZEM 125 IV (08:55)
--- NOTE | 2023-06-22 08:56 | VNURNOTE ---
Patient is current with [facility] since 05/31 w/ SN/PT/OT.
--- NOTE | 2023-06-22 09:13 | W.PN.HOSP.TC ---
Today's Communication/Plan
-
pt is an 82 year old female
paroxysmal A-fib with RVR (pt does not feel her increased HR all the time)--was hospitalized end of April for the same and meds were increased from 25 mg BID metoprolol to 50mg BID and diltiazem 240 mg to 360mg--then saw cardiology in office, was
sinus rhythm and bradycardic, digoxin stopped and meds lowered back to the original doses--now back in afib--placed on diltiazem drip---had attempted cardioversion x 7 in ED--apprec cards--discussing pacemaker
chronic Hyponatremia--follow--off fluid restriction per pt--may need to restart
Essential Hypertension--metoprolol and cardizem drip
Open right inguinal hernia repair by Dr. Aragon on 05/21/2023
History of endocarditis
History of meningioma surgery
DVT prophylaxis-Eliquis
code status--Full code
Anticipated Discharge: > 48 hours
Assessment / Plan
Assessment / Plan
pt is an 82 year old female
weakness, SOB, palpitations--due to paroxysmal A-fib with RVR (pt does not feel her increased HR all the time)--was hospitalized end of April for the same and meds were increased from 25 mg BID metoprolol to 50mg BID and diltiazem 240 mg to
360mg--then saw cardiology in office, was sinus rhythm and took the original does of meds per cards--now back in afib--placed on diltiazem drip--agree with IVU admission--had attempted cardioversion x 7 in ED--await cards for further
management--discussing pacemaker
chronic Hyponatremia--follow--off fluid restriction per pt--resolved
Essential Hypertension--metoprolol and cardizem drip
Open right inguinal hernia repair by Dr. Aragon on 05/21/2023
History of endocarditis
History of meningioma surgery
DVT prophylaxis-Eliquis
code status--Full code
Anticipated Discharge: 24 - 48 hours
Subjective/Interval History
-
Date of Service: June 22, 2023
pt chest pain improved with ultram (from CV)
Objective Data
-
Labs:
Laboratory Results
06/22/23 06/22/23
04:33 04:34
WBC 7.5
Hgb 14.2
Hct 40.3
Plt Count 353
Sodium 130 L
Potassium 4.7
Chloride 100
Carbon Dioxide 25
BUN 14
Creatinine 0.7
Glucose 83
Calcium 9.7
Vital Signs:
max temp for 24 hours
06/21/23
19:50
Temp 97.8 F
Vital Signs
Temp Pulse Resp BP Pulse Ox
97.6 F 144 20 98/54 96
06/22/23 07:42 06/22/23 08:51 06/22/23 07:42 06/22/23 08:51 06/22/23 08:30
I&O
06/21/23 06/22/23 06/23/23
06:59 06:59 06:59
Intake Total 240 / 240 20 / 20
Balance 240 / 240 20 / 20
Review of Systems
-
All other systems: Reviewed and negative
Physical Exam
-
General: Well Developed, Well Nourished and No Apparent Distress
HEENT: Normocephalic and Atraumatic
Respiratory: Clear to Auscultation; Negative Wheezes or Rhonchi
Cardiac: Irregular Rhythm and Tachycardic
GI: Soft, Nontender, Nondistended and Normal Bowel Sounds
Musculoskeletal: No Clubbing, No Cyanosis and No Edema
Skin: Warm
Neuro: Awake
--- NOTE | 2023-06-22 09:39 | W.CARD.TIKOS ---
Initiate Tikosyn
-
I verify that the patient has not taken any verapamil (Isoptin/Calan), ketoconazole (Nizoral), cimetidine (Tagamet), trimethoprim (Trimpex), trimethoprim/sulfamethoxazole (Bactrim), megesterol (Megace), prochlorperazine (Compazine),
hydrochlorothiazide (HCTZ), dolutegravir (Tivicay) or any Class I or Class III anti-arrhythmic within the last three days
AND
I verify that the patient has not taken amiodarone within the last THREE months, or that the patient's amiodarone plasma concentration is <0.3 mcg/mL.
Creatinine 0.7 mg/dL (0.6-1.0) 06/22/23 04:33
Estimated Creat Clear 59 ml/min 06/22/23 04:33
Does patient have a Ventricular Conduction Abnormality: No
I have assessed the baseline QTc interval (using QT for heart rate less than 60 bpm) and deemed the patient is appropriate for Dofetilide therapy. I understand that Tikosyn is contraindicated if the QTc is >440msec (500msec in patients with
ventricular conduction abnormalities).
Baseline QTc (in msec): 416
QTc interval is greater than 440msec without conduction abnormality OR greater than 500msec with a conduction abnormality, but acceptable to proceed per Cardiology attending.
Ordering Physician: Redd Mcguire
[2023-06-22] MEDS: TIKOSYN 250 MCG PO ×2 (10:05→20:58)
--- NOTE | 2023-06-22 10:13 | PTCARENOTE ---
EKG obtained, QTC 463, first dose of Tikosyn given, IV Cardizem drip D/C'd.
[2023-06-22] MEDS: LOPRESSOR 50 MG PO ×2 (11:49→17:47)
--- NOTE | 2023-06-22 12:22 | PTCARENOTE ---
patient is in NSR after first dose of tikosyn, QTC 468, TT Michelle Cortez NP.
--- NOTE | 2023-06-22 13:47 | CM ---
Chart reviewed. Patient is independent of ADLS, lives with her in a [address], next door to her children, 0 DME. Plan is for the patient to return home. Patient currently with no needs. CM to follow
--- NOTE | 2023-06-22 13:56 | CM ---
Pricing on Dofetilide through the patient's [facility] is $0 copay. I called patient's [facility] and they do have Dofetilide 250mcq in stock.
--- NOTE | 2023-06-22 15:11 | W.PN.UPDATE ---
Update Note
Progress Note Update
EP Consult
Parox AFib:
- On needed rate control her sinus rates were too slow
- On less rate control her AFib rates are too fast
- [id number]: score at least 4 (HTN, age 75 or more, female gender)
- Discussed options: 1) early referral for AFib ablation, 2) pacemaker and continue rate control on the prior regimen that led to bradycardia but not pursue rhythm control, or 3) begin AAD and continue less rate control and see if AFib can be well
controlled and then move to ablation or pacemaker later if needed
- Pt chose to initiate AAD. We started dofetilide
Hyponatremia
HTN, with white coat element
Mild aortic regurgitation - stable.
Open right inguinal hernia repair by Dr. Aragon on 05/20/22
--- NOTE | 2023-06-22 15:24 | PTCARENOTE ---
patient is SB, HR 58-60, BP 119/73, TT Michelle Cortez aware. patient asymptomatic.
--- NOTE | 2023-06-22 23:50 | PTCARENOTE ---
received @ change of shift- seated OOB in the chair. no complaints that this time. Spoke with Dr. Mcguire over the phone regarding pt HR in the 50s- 60s. Lopressor order changed to BID. Tikosyn dose 2 given. POC discussed- pt verbalized understanding.
call edy haddad reach.
[2023-06-23] VITALS (11 sets, daily range): BP systolic 120–162; BP diastolic 63–107; BMI 21.7
[2023-06-23 05:02] LABS: Hemoglobin 12.7 g/dL (12.0-16.0); Mean Corp Hgb Conc. 35.3 g/dL (33.0-37.0); Mean Corpuscular Hgb 31.4 pg (27.0-31.0); Mean Corpuscular Volume 88.9 fL (81.0-99.0); Platelet Count 290 10^3/uL (130-400); Red Blood Cell Count 4.05 10^6/uL (4.20-5.40); Red Cell Dist. Width 12.3 % (11.5-14.5); White Blood Cell Count 5.4 10^3/uL (4.8-10.8)
[2023-06-23 05:34] LABS: Blood Urea Nitrogen 13 mg/dl (7-17); Calcium 9.6 mg/dl (8.4-10.2); Carbon Dioxide 26 mmol/L (22-30); Chloride 98 mmol/L (98-107); Estimated Creatinine Clearance 60 ml/min; Glucose 81 mg/dl (70-99); Potassium 4.4 mmol/L (3.5-5.1); Sodium 129 mmol/L (135-145); eGFR > 60.00
[2023-06-23] MEDS: OSCAL CAL 500 250 MG PO (07:50)
[2023-06-23] MEDS: COLACE 100 MG PO ×2 (07:51→20:00)
[2023-06-23] MEDS: ELIQUIS 5 MG PO ×2 (07:51→20:00)
[2023-06-23] MEDS: VITAMIN B-12 1000 MCG PO (07:51)
[2023-06-23] MEDS: LOPRESSOR 50 MG PO (07:51)
--- NOTE | 2023-06-23 09:18 | W.PN.HOSP.TC ---
Today's Communication/Plan
-
restart fluid restriction
finish Tikosyn loading
Assessment / Plan
Assessment / Plan
pt is an 82 year old female
paroxysmal A-fib with RVR (pt does not feel her increased HR all the time)--was hospitalized end of April for the same and meds were increased from 25 mg BID metoprolol to 50mg BID and diltiazem 240 mg to 360mg--then saw cardiology in office, was
sinus rhythm and took the original does of meds per cards--now back in afib--had attempted cardioversion x 7 in ED--apprec cards --doing well on Tikosyn
chronic Hyponatremia--follow--off fluid restriction per pt--restart
Essential Hypertension--metoprolol and cardizem drip
Open right inguinal hernia repair by Dr. Aragon on 05/21/2023
History of endocarditis
History of meningioma surgery
DVT prophylaxis-Eliquis
code status--Full code
Anticipated Discharge: 24 - 48 hours
Subjective/Interval History
-
Date of Service: June 23, 2023
pt converted to sinus rhythm with Tikosyn loading
Objective Data
-
Labs:
Laboratory Results
06/23/23
04:13
WBC 5.4
Hgb 12.7
Hct 36.0 L
Plt Count 290
Sodium 129 L
Potassium 4.4
Chloride 98
Carbon Dioxide 26
BUN 13
Creatinine 0.7
Glucose 81
Calcium 9.6
Vital Signs:
max temp for 24 hours
06/23/23
04:16
Temp 98.1 F
Vital Signs
Temp Pulse Resp BP Pulse Ox
97.4 F 55 16 143/80 96
06/23/23 07:09 06/23/23 08:00 06/23/23 07:09 06/23/23 07:51 06/23/23 08:28
I&O
06/22/23 06/23/23 06/24/23
06:59 06:59 06:59
Intake Total
Balance
Review of Systems
-
All other systems: Reviewed and negative
Physical Exam
-
General: Well Developed, Well Nourished and No Apparent Distress
HEENT: Normocephalic and Atraumatic; Negative Oxygen
Respiratory: Clear to Auscultation; Negative Wheezes or Rhonchi
Cardiac: Regular Rhythm and S1/S2; Negative Murmur
GI: Soft, Nontender, Nondistended and Normal Bowel Sounds
Musculoskeletal: No Clubbing, No Cyanosis and No Edema
Neuro: Awake
[2023-06-23] MEDS: TIKOSYN 250 MCG PO ×2 (10:08→21:37)
--- NOTE | 2023-06-23 11:45 | W.PN.CD ---
Today's Communication / Plan
-
-
-
EKG review today
Continue Tikosyn
Lower metoprolol
Pt understands that she may need pacemaker in (near) future and may benefit from an AFib ablation
-
-
Impression / Plan
-
-
AFib, in sinus colton on Tikosyn, no bleeding on Eliquis
Sinus bradycardia
Hyponatremia
HTN
Subjective:
Converted to sinus after first dose of Tikosyn (but known paroxysmal). No torsades on tele. SB will lead to further reduction of BB
Physical Exam
Vital Signs/Labs
Vital Signs
Temp Pulse Resp BP Pulse Ox
97.4 F 55 16 143/80 96
06/23/23 07:09 06/23/23 08:00 06/23/23 07:09 06/23/23 07:51 06/23/23 08:28
06/22/23 06/23/23 06/24/23
06:59 06:59 06:59
Actual Weight 62.7 kg
06/23/23 04:13
06/23/23 04:13
Magnesium 2.0 mg/dl (1.6-2.3) 06/22/23 04:33
Triglycerides 77 mg/dl (10-149) 06/21/23 03:39
LDL Cholesterol, Calc 83 mg/dl 06/21/23 03:39
VLDL Cholesterol, Calc 15 mg/dl (0-30) 06/21/23 03:39
HDL Cholesterol 119 mg/dl 06/21/23 03:39
Physical Exam
Constitutional: No acute distress
EENT: Anicteric
Cardiovascular: Rhythm & rate is regular and Pedal edema is absent
Respiratory: Respiratory effort normal and Lungs clear to auscul.
GI: Soft and Distention absent
Neuro/Psych: AO x 3
Data Reviewed
-
Date of Service: June 23, 2023
--- NOTE | 2023-06-23 12:57 | PTCARENOTE ---
third dose of Tikosyn given, post EKG, QTC 459. monitor shows NSR/SB, VSS.
--- NOTE | 2023-06-23 13:46 | CM ---
Chart reviewed. Patient is independent of ADLS, lives with her in a 1 [address], 2 [address], 0 DME with children living next door. Patient currently with no discharge needs. Patient's pharmacy will need to be called day of discharge to confirm
dofetilide dosage is in stock. Plan is for the patient to return home. CM to follow
--- NOTE | 2023-06-23 21:19 | PTCARENOTE ---
AOX3 and pleasant. Tele- SR/SB. HR 50-60s. Assessment noted as documented. VSS. Pt sating at 100% on RA. Pt amb. around room w/ steady gait. Offers no c/o at this time. Currently OOB in chair; call edy w/in reach.
[2023-06-24] VITALS (21 sets, daily range): BP systolic 101–179; BP diastolic 66–110; BMI 21.3
[2023-06-24] MEDS: CORDARONE 103 MG IV (00:09)
[2023-06-24] MEDS: CORDARONE 518 MG IV (00:31)
--- NOTE | 2023-06-24 00:48 | PTCARENOTE ---
At 23:17 post Tikosyn dose #4 EKG obtained. QTC 492. Ekg showed NSR w/ sinus arrhythmia. When this RN left room monitor alarmed showing pt converted back into Afib RVR. HR 150-170s. At 23:35 pt w/ sustained VT. Pt awake and instructed to bear down
and cough. Reports 'chest pounding.' BP 160/93. 2L O2 NC applied. POX 100%. Pt breaking in and out of afib and VT. Dr. Moya called and made aware. IV Amio bolus and infusion ordered and Tikosyn d/c per Dr. Moya. #22 IV placed in L forearm
for Amio infusion. At 0047 pt self-converted back into SR. HR 70s. BP 114/84. Currently resting in bed; call edy w/in reach.
[2023-06-24 04:19] LABS: Hematocrit 38.1 % (37.0-47.0); Hemoglobin 13.1 g/dL (12.0-16.0); Mean Corp Hgb Conc. 34.4 g/dL (33.0-37.0); Mean Corpuscular Hgb 30.8 pg (27.0-31.0); Mean Corpuscular Volume 89.4 fL (81.0-99.0); Platelet Count 307 10^3/uL (130-400); Red Blood Cell Count 4.26 10^6/uL (4.20-5.40); Red Cell Dist. Width 12.3 % (11.5-14.5); White Blood Cell Count 6.7 10^3/uL (4.8-10.8)
[2023-06-24 04:56] LABS: Blood Urea Nitrogen 13 mg/dl (7-17); Calcium 9.9 mg/dl (8.4-10.2); Carbon Dioxide 25 mmol/L (22-30); Chloride 100 mmol/L (98-107); Estimated Creatinine Clearance 60 ml/min; Glucose 98 mg/dl (70-99); Magnesium 2.1 mg/dl (1.6-2.3); Potassium 4.2 mmol/L (3.5-5.1); Sodium 134 mmol/L (135-145); eGFR > 60.00
[2023-06-24] MEDS: ELIQUIS 5 MG PO (07:37)
[2023-06-24] MEDS: VITAMIN B-12 1000 MCG PO (07:37)
[2023-06-24] MEDS: FLUSH (NSS) 2 FLUSH IV (07:37)
[2023-06-24] MEDS: COLACE 100 MG PO ×2 (07:37→19:54)
[2023-06-24] MEDS: TOPROL XL 12.5 MG PO (07:37)
[2023-06-24] MEDS: OSCAL CAL 500 250 MG PO (07:38)
--- NOTE | 2023-06-24 08:17 | PTCARENOTE ---
Addendum entered by Nena Burks RN 06/24/23 08:23:
NSR is noted on the monitor.
Original Note:
Amiodarone gtt is running at 0.5 mg/min in a left forearm IV. She has no complaints of pain or discomfort at the site.
--- NOTE | 2023-06-24 08:36 | W.PN.CD ---
Today's Communication / Plan
-
-Admitted for Tikosyn loading; developed sustained monomorphic VT overnight.
-Treated with amiodarone bolus 150 mg and is currently on amiodarone drip; continue.
-Case discussed with EP Cardiology this am; given sustained monomorphic VT, recommend ischemic evaluation.
-Patient will undergo cardiac catheterization tomorrow (will hold Eliquis).
-Will transition to heparin drip later today.
-Will obtain echocardiogram today to reassess cardiac function.
-NPO after midnight.
-Patient will need to undergo either pacemaker or ICD implantation; to be determined by EP Cardiology after cardiac catheterization.
Impression / Plan
-
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
enlarging meningiomas (at the [facility]), and previous viral pericarditis (2012) admitted for Tikosyn loading.
-
PAF/VT:
-Admitted for Tikosyn loading; developed sustained monomorphic VT overnight.
-Treated with amiodarone bolus 150 mg and is currently on amiodarone drip; continue.
-Case discussed with EP Cardiology this am; given sustained monomorphic VT, recommend ischemic evaluation.
-Patient will undergo cardiac catheterization tomorrow (will hold Eliquis).
-Will transition to heparin drip later today.
-Will obtain echocardiogram today to reassess cardiac function.
-NPO after midnight.
Tachycardia-bradycardia syndrome:
-Patient will need to undergo either pacemaker or ICD implantation; to be determined by EP Cardiology after cardiac catheterization.
-Continue current dose of metoprolol succinate for now.
HTN:
-BP stable/controlled.
Subjective:
Patient developed sustained monomorphic VT overnight; broke with IV amnio 150 bolus and amiodarone drip.
Physical Exam
Vital Signs/Labs
Vital Signs
Temp Pulse Resp BP Pulse Ox
98.2 F 67 18 148/81 99
06/24/23 07:13 06/24/23 07:14 06/24/23 07:13 06/24/23 07:14 06/24/23 07:13
06/23/23 06/24/23 06/25/23
06:59 06:59 06:59
Actual Weight 62.7 kg 61.6 kg
06/24/23 03:44
06/24/23 03:44
Magnesium 2.1 mg/dl (1.6-2.3) 06/24/23 03:44
Triglycerides 77 mg/dl (10-149) 06/21/23 03:39
LDL Cholesterol, Calc 83 mg/dl 06/21/23 03:39
VLDL Cholesterol, Calc 15 mg/dl (0-30) 06/21/23 03:39
HDL Cholesterol 119 mg/dl 06/21/23 03:39
Physical Exam
Constitutional: No acute distress and Comfortable
EENT: Anicteric
Cardiovascular: Rhythm & rate is regular, Pedal edema is absent, Systolic murmur present (Soft 2/6) and S1S2 is normal
Respiratory: Respiratory effort normal and Lungs clear to auscul.
GI: Soft
Neuro/Psych: AO x 3
Other: Skin (Warm, dry, intact)
Data Reviewed
-
Date of Service: June 24, 2023
EKG: Tracing Personally Visualized and interpreted (Telemetry: A-fib with RVR --> monomorphic VT --> A-fib with RVR --> sinus rhythm)
Echo: Ordered by me
X-Ray/CT/US/MRI/NUC/PET: Discussed with Physician (EP Cardiology, Interventional Cardiology), Discussed with Nurse, Discussed with Patient and Discussed with Family (, Neeraj, at bedside)
Labs: Labs Reviewed by me
--- NOTE | 2023-06-24 09:13 | W.PN.HOSP.TC ---
Today's Communication/Plan
-
starting heparin drip
cardiac cath tomorrow
pacer vs AICD determination after that
Assessment / Plan
Assessment / Plan
pt is an 82 year old female
monomorphic VT overnight 06/22 to 06/23--eliquis on hold--IV heparin drip starting tonight--cath tomorrow followed by pacer or AICD pending cath
paroxysmal A-fib with RVR (pt does not feel her increased HR all the time)--was hospitalized end of April for the same and meds were increased from 25 mg BID metoprolol to 50mg BID and diltiazem 240 mg to 360mg--then saw cardiology in office, was
sinus rhythm and took the original does of meds per cards--now back in afib--had attempted cardioversion x 7 in ED--apprec cards --failed Tikosyn load as got monomorphic VT--now on amio
chronic Hyponatremia--follow--off fluid restriction per pt--restart
Essential Hypertension--metoprolol and cardizem drip
Open right inguinal hernia repair by Dr. Aragon on 05/21/2023
History of endocarditis
History of meningioma surgery
DVT prophylaxis-Eliquis
code status--Full code
Anticipated Discharge: > 48 hours
Subjective/Interval History
-
Date of Service: June 24, 2023
pt developed monomorphic VT overnight--started on amio drip
Objective Data
-
Labs:
Laboratory Results
06/24/23 06/24/23
03:44 08:51
WBC 6.7 Pending
Hgb 13.1 Pending
Hct 38.1 Pending
Plt Count 307 Pending
APTT Pending
Sodium 134 L
Potassium 4.2
Chloride 100
Carbon Dioxide 25
BUN 13
Creatinine 0.7
Glucose 98
Calcium 9.9
Vital Signs:
max temp for 24 hours
06/24/23
07:13
Temp 98.2 F
Vital Signs
Temp Pulse Resp BP Pulse Ox
98.2 F 67 18 148/81 99
06/24/23 07:13 06/24/23 07:14 06/24/23 07:13 06/24/23 07:14 06/24/23 07:13
I&O
06/23/23 06/24/23 06/25/23
06:59 06:59 06:59
Intake Total 576 / 576
Balance 576 / 576
Review of Systems
-
All other systems: Reviewed and negative
Physical Exam
-
General: Well Developed, Well Nourished and No Apparent Distress
HEENT: Normocephalic and Atraumatic; Negative Oxygen
Respiratory: Clear to Auscultation; Negative Wheezes or Rhonchi
Cardiac: Regular Rhythm, S1/S2 and Murmur
GI: Soft, Nontender, Nondistended and Normal Bowel Sounds
Musculoskeletal: No Clubbing, No Cyanosis and No Edema
Neuro: Awake and Alert
[2023-06-24 10:13] LABS: Hematocrit 40.4 % (37.0-47.0); Hemoglobin 13.9 g/dL (12.0-16.0); Mean Corp Hgb Conc. 34.4 g/dL (33.0-37.0); Mean Corpuscular Hgb 31.5 pg (27.0-31.0); Mean Corpuscular Volume 91.6 fL (81.0-99.0); Mean Platelet Volume 9.5 fL (7.4-10.4); Platelet Count 292 10^3/uL (130-400); Red Blood Cell Count 4.41 10^6/uL (4.20-5.40); Red Cell Dist. Width 12.1 % (11.5-14.5); White Blood Cell Count 6.1 10^3/uL (4.8-10.8)
[2023-06-24 10:27] LABS: APTT 34.2 Sec (23.4-35.0)
[2023-06-24] MEDS: HEPARIN 3700 UNITS IV (19:54)
[2023-06-24] MEDS: PACERONE 400 MG PO (19:54)
[2023-06-24] MEDS: HEPARIN 25000 UNITS/250 ML IV (19:56)
--- NOTE | 2023-06-24 21:18 | PTCARENOTE ---
AOX3 and pleasant. Tele- SR/SB. HR 50-60s. Amio gtt infusing at 16.7 ml/hr in L forearm. Heparin bolus administered and heparin gtt now infusing at 750 units/hr in R forearm per order. See MAR. Pt amb in room; steady gait. Offers no c/o at this
time. Aware of NPO status for cath tomorrow. Currently in bed; call edy w/in reach.
[2023-06-25] VITALS (24 sets, daily range): BP systolic 114–182; BP diastolic 73–106
--- NOTE | 2023-06-25 00:11 | PTCARENOTE ---
Amio gtt turned off per provider order. L forearm IV removed per protocol.
[2023-06-25 02:29] LABS: Hematocrit 34.9 % (37.0-47.0); Hemoglobin 12.5 g/dL (12.0-16.0); Mean Corp Hgb Conc. 35.8 g/dL (33.0-37.0); Mean Corpuscular Hgb 31.5 pg (27.0-31.0); Mean Corpuscular Volume 87.9 fL (81.0-99.0); Mean Platelet Volume 9.6 fL (7.4-10.4); Platelet Count 289 10^3/uL (130-400); Red Blood Cell Count 3.97 10^6/uL (4.20-5.40); Red Cell Dist. Width 12.3 % (11.5-14.5); White Blood Cell Count 6.3 10^3/uL (4.8-10.8)
[2023-06-25 02:52] LABS: APTT 105.8 Sec (23.4-35.0)
[2023-06-25 03:44] LABS: Blood Urea Nitrogen 11 mg/dl (7-17); Calcium 9.8 mg/dl (8.4-10.2); Carbon Dioxide 22 mmol/L (22-30); Chloride 103 mmol/L (98-107); Estimated Creatinine Clearance 60 ml/min; Glucose 92 mg/dl (70-99); Magnesium 2.1 mg/dl (1.6-2.3); Potassium 4.1 mmol/L (3.5-5.1); Sodium 132 mmol/L (135-145); eGFR > 60.00
[2023-06-25] MEDS: TOPROL XL 12.5 MG PO (08:04)
[2023-06-25] MEDS: COLACE 100 MG PO ×2 (08:04→19:24)
[2023-06-25] MEDS: PACERONE 400 MG PO ×2 (08:06→19:24)
[2023-06-25] MEDS: OSCAL CAL 500 250 MG PO (08:06)
[2023-06-25] MEDS: VITAMIN B-12 1000 MCG PO (08:06)
--- NOTE | 2023-06-25 08:27 | PTCARENOTE ---
pt aaox3. self walking in room. currently oob in chair with family. pt states no pain or sob. nsr seen on monitor. heparin gtt running as ordered. breath sound clear.
[2023-06-25 09:39] LABS: APTT 80.2 Sec (23.4-35.0)
--- NOTE | 2023-06-25 10:22 | W.PN.HOSP.TC ---
Today's Communication/Plan
-
anticipate cath today and device placement tomorrow
Assessment / Plan
Assessment / Plan
pt is an 82 year old female
monomorphic VT overnight 06/22 to 06/23--eliquis on hold--IV heparin drip started --cath 06/24 followed by pacer or AICD pending cath
paroxysmal A-fib with RVR (pt does not feel her increased HR all the time)--was hospitalized end of April for the same and meds were increased from 25 mg BID metoprolol to 50mg BID and diltiazem 240 mg to 360mg--then saw cardiology in office, was
sinus rhythm and took the original does of meds per cards--now back in afib--had attempted cardioversion x 7 in ED--apprec cards --failed Tikosyn load as got monomorphic VT--now on amio
chronic Hyponatremia--follow--off fluid restriction per pt--restart
Essential Hypertension--metoprolol and cardizem drip
Open right inguinal hernia repair by Dr. Aragon on 05/21/2023
History of endocarditis
History of meningioma surgery
DVT prophylaxis-Eliquis
code status--Full code
Anticipated Discharge: > 48 hours
Subjective/Interval History
-
Date of Service: June 25, 2023
pt waiting for cardiac cath
Objective Data
-
Labs:
Laboratory Results
06/25/23 06/25/23
02:24 09:20
WBC 6.3
Hgb 12.5
Hct 34.9 L
Plt Count 289
APTT 105.8 H 80.2 H
Sodium 132 L
Potassium 4.1
Chloride 103
Carbon Dioxide 22
BUN 11
Creatinine 0.7
Glucose 92
Calcium 9.8
Vital Signs:
max temp for 24 hours
04/25/24
07:34
Temp 98.6 F
Vital Signs
Temp Pulse Resp BP Pulse Ox
98.6 F 65 20 150/88 99
06/25/23 07:34 06/25/23 08:06 06/25/23 07:34 06/25/23 08:06 06/25/23 07:34
I&O
06/24/23 06/25/23 06/26/23
06:59 06:59 06:59
Intake Total 576 / 576
Balance 576 / 576
Review of Systems
-
All other systems: Reviewed and negative
Physical Exam
-
General: Well Developed, Well Nourished and No Apparent Distress
HEENT: Normocephalic and Atraumatic
Respiratory: Clear to Auscultation; Negative Wheezes
Cardiac: Irregular Rhythm
GI: Soft, Nontender, Nondistended and Normal Bowel Sounds
Musculoskeletal: No Clubbing, No Cyanosis and No Edema
--- NOTE | 2023-06-25 10:32 | CM ---
Reviewed chart. Met with and Mrs. Rainey to review discharge plans. She states prior to admission she resides with her spouse in a one story home with two steps to enter. She states prior to admission she was independent with ambulation and
adls. She states she does not have any DME in the home. She states she has a prescription plan with [facility]. Medical work-up in progress. The discharge plan is to return home with her spouse when medically stable.
--- NOTE | 2023-06-25 13:55 | PTCARENOTE ---
pt heart rate now 130-150 sustained. in afib on monitor. notified cardiology amio bolus ordered. pt states she feels her chest fluttering and her legs are going numb like last time. no chest pain or sob.
[2023-06-25] MEDS: CORDARONE 103 MG IV (14:05)
[2023-06-25] MEDS: LOW STRENGTH ASPIRIN 324 MG PO (15:02)
--- NOTE | 2023-06-25 15:06 | PTCARENOTE ---
pt taken to technology lab teacher
--- NOTE | 2023-06-25 15:44 | ITS.CL.CATH ---
Auto Body Service Mechanic - Catheterization
Cardiac Catheterization
Procedure Report:
CARDIAC CATHETERIZATION REPORT
Date of Procedure: 06/25/2023
Referring: Octavio Moya MD
Indication: Sustained monomorphic VT (after starting Tikosyn) in patient with PAF
HEMODYNAMIC DATA
AO: 146/90
LV: 146/12
LEFT VENTRICULOGRAPHY: Mild global hypokinesis with EF 49% with moderate mitral regurgitation
CORONARY ANGIOGRAPHY
Dominance: Right
Left Main: Normal
LAD: Normal
Circumflex: Normal
RCA: Normal dominant vessel
Closure Device: None-the procedure was performed via the right radial artery. The Ronaldo's test was normal prior to the procedure.
Radiation (mGy): 51
DAP (cm2.Gy): 3.2
Fluoroscopy time: 1.7 minutes
CONCLUSIONS
1: Mild global hypokinesis with EF 49% with moderate mitral regurgitation
2: Normal coronary arteries
Copy to: Octavio Moya MD, Demi Galvez MD
Nitin Carr MD, [facility], [facility]
[2023-06-25] MEDS: LOPRESSOR 25 MG PO ×2 (16:11→23:26)
--- NOTE | 2023-06-25 16:22 | PTCARENOTE ---
pt returned from central lab technician. nsr seen on monitor with rate 66.
--- NOTE | 2023-06-25 21:46 | PTCARENOTE ---
Radial band off. 4x4 and tegaderm applied. C/d/i. Aware of activity restrictions w/ R wrist. Heparin gtt resumed at 750 units/hr.
[2023-06-26] VITALS (12 sets, daily range): BP systolic 118–155; BP diastolic 66–95; BMI 21.1
[2023-06-26 03:59] LABS: Hematocrit 36.5 % (37.0-47.0); Hemoglobin 13.1 g/dL (12.0-16.0); Mean Corp Hgb Conc. 35.9 g/dL (33.0-37.0); Mean Corpuscular Hgb 31.6 pg (27.0-31.0); Mean Corpuscular Volume 88.2 fL (81.0-99.0); Mean Platelet Volume 9.8 fL (7.4-10.4); Platelet Count 295 10^3/uL (130-400); Red Blood Cell Count 4.14 10^6/uL (4.20-5.40); Red Cell Dist. Width 12.4 % (11.5-14.5); White Blood Cell Count 6.8 10^3/uL (4.8-10.8)
[2023-06-26 04:11] LABS: APTT 68.8 Sec (23.4-35.0)
[2023-06-26 04:28] LABS: Blood Urea Nitrogen 9 mg/dl (7-17); Calcium 9.5 mg/dl (8.4-10.2); Carbon Dioxide 25 mmol/L (22-30); Chloride 103 mmol/L (98-107); Estimated Creatinine Clearance 60 ml/min; Glucose 90 mg/dl (70-99); Potassium 4.2 mmol/L (3.5-5.1); Sodium 132 mmol/L (135-145); eGFR > 60.00
[2023-06-26] MEDS: HEPARIN 25000 UNITS/250 ML IV (05:11)
[2023-06-26] MEDS: COLACE 100 MG PO ×2 (07:55→20:40)
[2023-06-26] MEDS: LOPRESSOR 25 MG PO ×3 (07:55→22:50)
[2023-06-26] MEDS: PACERONE 400 MG PO ×2 (07:56→20:41)
--- NOTE | 2023-06-26 08:23 | W.PN.CD ---
Today's Communication / Plan
-
-Cardiac catheterization yesterday was normal.
-Case discussed with EP Cardiology this am; given sustained monomorphic VT, patient will undergo ICD implantation today.
-Continue amiodarone load with 400 mg PO BID.
-Continue current dose of metoprolol tartrate for now.
-Transition to Eliquis from heparin drip after ICD implantation.
Impression / Plan
-
82 year-old female (known to Dr. Moya, her primary Design Teacher) with paroxysmal atrial fibrillation (on Eliquis), hypertension (white coat element), mild aortic regurgitation, recurrent meningiomas status-post gamma knife surgery for removal of
enlarging meningiomas (at the [facility]), and previous viral pericarditis (2012) admitted for Tikosyn loading.
-
PAF/VT:
-Admitted for Tikosyn loading; developed sustained monomorphic VT this admission.
-Treated with amiodarone bolus 150 mg and amiodarone drip initially; transition to PO load.
-Cardiac catheterization yesterday was normal.
-Case discussed with EP Cardiology this am; given sustained monomorphic VT, patient will undergo ICD implantation today.
-Continue amiodarone load with 400 mg PO BID.
-Continue current dose of metoprolol tartrate for now.
-Transition to Eliquis from heparin drip after ICD implantation.
Tachycardia-bradycardia syndrome:
-ICD implantation today.
-Continue amiodarone and metoprolol tartrate as above.
HTN:
-Fairly controlled.
Subjective:
No major events overnight.
Physical Exam
Vital Signs/Labs
Vital Signs
Temp Pulse Resp BP Pulse Ox
97.5 F 64 16 155/92 96
06/26/23 07:58 06/26/23 07:55 06/26/23 03:53 06/26/23 07:55 06/26/23 03:53
04/26/24 03:42
06/26/23 03:42
APTT 68.8 Sec (23.4-35.0) H 06/26/23 03:42
Magnesium 2.0 mg/dl (1.6-2.3) 06/26/23 03:42
Triglycerides 77 mg/dl (10-149) 06/21/23 03:39
LDL Cholesterol, Calc 83 mg/dl 06/21/23 03:39
VLDL Cholesterol, Calc 15 mg/dl (0-30) 06/21/23 03:39
HDL Cholesterol 119 mg/dl 06/21/23 03:39
Physical Exam
Constitutional: No acute distress and Comfortable
EENT: Anicteric
Cardiovascular: Rhythm & rate is regular, Pedal edema is absent, Systolic murmur present (03/07) and S1S2 is normal
Respiratory: Respiratory effort normal and Lungs clear to auscul.
GI: Soft
Neuro/Psych: AO x 3
Other: Skin (Warm, dry, intact)
Data Reviewed
-
Date of Service: June 26, 2023
EKG: Tracing Personally Visualized and interpreted (Telemetry: Sinus rhythm)
Echo: Report Reviewed by me (Normal LVEF; mild aortic regurgitation)
Medical Tests (PFT, Pathology etc): Discussed with Physician (EP Cardiology), Discussed with Patient and Discussed with Family ( (Neeraj) and son (Yrn) at bedside)
Labs: Labs Reviewed by me
--- NOTE | 2023-06-26 10:15 | W.PN.HOSP.TC ---
Today's Communication/Plan
-
AICD today
Assessment / Plan
Assessment / Plan
pt is an 82 year old female
monomorphic VT overnight 06/22 to 06/23--eliquis on hold--IV heparin drip started --cath 06/24 essentially normal--for ICD placement today
paroxysmal A-fib with RVR (pt does not feel her increased HR all the time)--was hospitalized end of April for the same and meds were increased from 25 mg BID metoprolol to 50mg BID and diltiazem 240 mg to 360mg--then saw cardiology in office, was
sinus rhythm and took the original does of meds per cards--now back in afib--had attempted cardioversion x 7 in ED--apprec cards --failed Tikosyn load as got monomorphic VT--now on amio
chronic Hyponatremia--follow--off fluid restriction per pt--restart
Essential Hypertension--metoprolol and cardizem drip
Open right inguinal hernia repair by Dr. Aragon on 05/21/2023
History of endocarditis
History of meningioma surgery
DVT prophylaxis-Eliquis
code status--Full code
Anticipated Discharge: 24 - 48 hours
Subjective/Interval History
-
Date of Service: June 26, 2023
pt waiting for device placement
Objective Data
-
Labs:
Laboratory Results
06/26/23 06/26/23
03:42 10:40
WBC 6.8
Hgb 13.1
Hct 36.5 L
Plt Count 295
APTT 68.8 H Pending
Sodium 132 L
Potassium 4.2
Chloride 103
Carbon Dioxide 25
BUN 9
Creatinine 0.7
Glucose 90
Calcium 9.5
Vital Signs:
max temp for 24 hours
06/25/23
15:57
Temp 98.4 F
Vital Signs
Temp Pulse Resp BP Pulse Ox
97.5 F 51 16 155/92 96
06/26/23 07:58 06/26/23 09:00 06/26/23 03:53 06/26/23 07:55 06/26/23 03:53
Review of Systems
-
All other systems: Reviewed and negative
Physical Exam
-
General: Well Developed, Well Nourished and No Apparent Distress
HEENT: Normocephalic and Atraumatic
Respiratory: Clear to Auscultation; Negative Wheezes or Rhonchi
Cardiac: Irregular Rhythm
GI: Soft, Nontender, Nondistended and Normal Bowel Sounds
Musculoskeletal: No Clubbing, No Cyanosis and No Edema
Neuro: Awake
Psych: Calm
[2023-06-26 11:20] LABS: APTT 86.8 Sec (23.4-35.0)
--- NOTE | 2023-06-26 16:02 | ITS.CL.ICD ---
Picture Copyist - ICD
Implantable Cardioverter Defibrillator
Procedure Report:
Dual Chamber Implantable Cardioverter Defibrillator Placement:
Ms. Rainey is a very pleasant 82 years old woman with paroxysmal atrial fibrillation (on Eliquis), Sick sinus syndrome, hypertension (white coat element), mild aortic regurgitation, recurrent meningiomas status-post gamma knife surgery for removal
of enlarging meningiomas (at the [facility]), and previous viral pericarditis (2012) admitted for Tikosyn loading but developed monomorphic sustained ventricular tachycardia and is recommended for dual chamber ICD for
secondary prevention for his ventricular tachycardia and need for pacing for her sick sinus syndrome.
Indications: Sick sinus syndrome with ventricular tachycardia.
Date of the Procedure: 06/26/2023
Pre-Operative Diagnosis: Sick sinus syndrome with ventricular tachycardia.
Post-Operative Diagnosis: Sick sinus syndrome with ventricular tachycardia.
Procedure Performed: DUAL CHAMBER IMPLANTABLE CARDIOVERTER DEFIBRILLATOR IMPLANTATION
Performing Physician:
Rosemary Gomez MD
Anesthesia:
See anesthesia records
Detailed Description of the Procedure:
The patient was identified using hospital identification and informed consent obtained for the procedure. The risks were explained including, but not limited to: Bleeding, infection, arrhythmia, stroke, vascular/cardiac/lung puncture, surgery,
pacemaker dependency/device malfunction. All questions were answered.
The patient was brought to the electrophysiology laboratory in stable condition in fasting state. Continuous electrocardiographic and hemodynamic monitoring was initiated. The initial rhythm was sinus rhythm with PACs.
The procedure site was meticulously prepared with surgical scrub and allowed to dry with no pooling. Sterile draping was applied to cover the procedure site. The image intensifier was draped with sterile bag and positioned over the patient.
The left infra-clavicular region was prepped and draped in the usual sterile fashion. Local anesthesia was administered subcutaneously using 1% lidocaine / Bupivacaine. The left cephalic vein cut-down was performed with an incision at the
delto-pectoral groove, and vascular sheaths were introduced for lead access. These were advanced into the right ventricle and the right atrium.
The right ventricular lead was secured in position with an active fixation technique at the apical septal location.
The RA lead was attached in the right atrial appendage with passive fixation using tines.
There was excellent sensing, pacing, and impedance from the leads, with no diaphragmatic stimulation at 10 V output.�Bovie cautery, antibiotics, and fluoroscopy were used.
The sheath was withdrawn, and the thresholds remained acceptable. The lead was secured in position at the venous entry site with 0-silk. A pocket was fashioned contiguous to the incision. The electrode terminals were connected to the pulse
generator, which was placed into the pocket. The wound was irrigated thoroughly with antibiotic solution and closed in 3 layers using 3-0 VLoc sutures followed by 2 layers of 4-0 V-loc sutures. Steri-Strips and a bandage were applied externally.�
Procedure End:
The procedure was tolerated well. A bandage was applied to the incision area.
Estimated Blood loss:
5 cc
Fluoro time:
2.5min / 1.6mGy
Specimens Removed:
No cultures and no specimens were obtained. No intraoperative pathology was identified.
Urine output:
None
Packs / Drains/ Tubes:
None
Instrument / Sponge Count Correct:
Yes
Complications of the Procedure:
None
Condition of Patient at Time of Transfer:
Hemodynamically stable with no neurological or vascular compromise.
Device information:�
Generator: [employer]; Model: [id number]; Serial # [id number]�
Atrial Lead: [employer]; Model: 4574-53; Serial # [id number]�
Measured data in the right atrium was sensing of 4 mV, impedance of 684 ohms and threshold of 0.75 V at 0.4ms�
RV Lead: [employer]; Model: 6935M-62; Serial # [id number]
Measured data in the RV lead was sensing of 12.6mV, impedance of 627ohms and threshold of 0.5 V at 0.4ms�
PROGRAMMING PARAMETERS:�
Randal parameter settings were DDD 50-130 bpm. �
����������� Mode switch: On
����������� Paced AV delay: 130 ms
����������� Sensed AV delay: 100 ms
����������� Rate Adaptive A-V Interval: Off
Output parameters:
����������������������� Amplitude (V)������������� Pulse Width (ms)������� Sensitivity (mV)
����������� RA: ����� 3.5 ����������������� 0.4������������������ 0.3
����������� RV:������ 3.5������������������ 0.4������������������ 0.3
Tachy parameter settings:
���SVT discrimination:
����������� Wavelet: On
����������� AF/AFl: Off
����������� SVT limit: 260 msec
����������� RV lead noise:on
����������� VT zone:
����������������������� Slow VT: 150-167 bpm -->Monitor
����������������������� Fast VT: 167 - 188 bpm --> 7 bursts then shocks
����������������������� Fast VT / VF: �� >188 bpm --> Shock x6 (ATP before and during)
�����������
Summary:
Successful implantation of MRI compatible dual chamber [employer] implantable Cardioverter Defibrillator.�
Results/Recommendations:
-Please follow up CXR�
1. Please provide patient with adequate pain control�
Instructions to be given to patient:�
- Please follow up with [facility] at [address] [place] [address] ([phone]) to get your wound checked within 14 days of your discharge.
- Do not soak incision site until after it is evaluated at cardiology clinic. OK to showers followed by dab dry the area. No baths or swimming until then. Sponge baths are OK.�
- Allow 'steri strips' to fall off on their own�
- Do not lift left elbow above shoulder, particularly with sudden jerking movements, for 1 month�
- Do not lift anything weighing more than 5 pounds with the left arm for 1 month�
- If you notice any fevers, shortness of breath, lightheadedness, chest pain, or worsening swelling in the wound site, please contact the arrhythmia clinic, contact your maintenance supervisor, or present to the hospital for evaluation.�
Rosemary Gomez MD
Electrophysiology
--- NOTE | 2023-06-26 16:56 | CM ---
plan remians dc to home when medically stable. dofetilide has no copay
--- NOTE | 2023-06-26 17:00 | CM ---
dc plan remains home when medically stable.
[2023-06-26] MEDS: VITAMIN B-12 PO (18:12)
[2023-06-26] MEDS: OSCAL CAL 500 PO (18:12)
--- NOTE | 2023-06-26 19:19 | PTCARENOTE ---
Received pt post dual chamber AICD. VSS, EKG obtained, CXR done. Left ACW w/ aquacel and left arm immobilizer intact. Pt denies any discomfort. Will monitor.
--- NOTE | 2023-06-26 20:00 | PTCARENOTE ---
Assumed care. Patient in chair. Assisted to the bathroom to void and provide PM care. Assisted to bed. Tylenol given for pain left anterior chest. Immobilizer intact, precautions reviewed. Left anterior chest wall dressing CDI. SR of telemetry. Call
snow in reach
[2023-06-26] MEDS: ELIQUIS 5 MG PO (20:40)
[2023-06-26] MEDS: TYLENOL 1000 MG PO (20:42)
[2023-06-26] MEDS: ANCEF 5 IV (22:50)
[2023-06-27] VITALS (9 sets, daily range): BP systolic 103–162; BP diastolic 59–97; BMI 21.3
[2023-06-27] MEDS: ANCEF 5 IV (05:02)
[2023-06-27 05:24] LABS: Hematocrit 35.5 % (37.0-47.0); Hemoglobin 12.2 g/dL (12.0-16.0); Mean Corp Hgb Conc. 34.4 g/dL (33.0-37.0); Mean Corpuscular Hgb 30.5 pg (27.0-31.0); Mean Corpuscular Volume 88.8 fL (81.0-99.0); Mean Platelet Volume 9.7 fL (7.4-10.4); Platelet Count 271 10^3/uL (130-400); Red Cell Dist. Width 12.3 % (11.5-14.5); White Blood Cell Count 6.2 10^3/uL (4.8-10.8)
[2023-06-27 06:09] LABS: Blood Urea Nitrogen 11 mg/dl (7-17); Calcium 9.3 mg/dl (8.4-10.2); Carbon Dioxide 23 mmol/L (22-30); Chloride 103 mmol/L (98-107); Estimated Creatinine Clearance 60 ml/min; Glucose 91 mg/dl (70-99); Potassium 4.8 mmol/L (3.5-5.1); Sodium 131 mmol/L (135-145); eGFR > 60.00
[2023-06-27] MEDS: PACERONE 400 MG PO (07:33)
[2023-06-27] MEDS: ELIQUIS 5 MG PO (07:34)
[2023-06-27] MEDS: LOPRESSOR 25 MG PO (07:34)
[2023-06-27] MEDS: COLACE 100 MG PO (07:34)
[2023-06-27] MEDS: OSCAL CAL 500 250 MG PO (07:40)
[2023-06-27] MEDS: VITAMIN B-12 1000 MCG PO (07:40)
[2023-06-27] MEDS: TYLENOL 1000 MG PO (07:52)
--- NOTE | 2023-06-27 08:12 | W.PN.CD ---
Today's Communication / Plan
-
-Stable for discharge from cardiac standpoint.
Impression / Plan
-
82 year-old female (known to Dr. Moya, her primary Salvage Cutter) with paroxysmal atrial fibrillation (on Eliquis), hypertension (white coat element), mild aortic regurgitation, recurrent meningiomas status-post gamma knife surgery for removal of
enlarging meningiomas (at the [facility]), and previous viral pericarditis (2012) admitted for Tikosyn loading.
-
PAF/VT:
-Admitted for Tikosyn loading; developed sustained monomorphic VT this admission.
-Treated with amiodarone bolus 150 mg and amiodarone drip initially; transition to PO load.
-Cardiac catheterization 06/25/23 was normal.
-Sick sinus syndrome - needs a PPM
-sustained monomorphic VT, ICD recommended s/p dual chamber ICD on 06/26/23
-Discharge on amiodarone 200 mg PO BID.
-Continue current dose of metoprolol 25 mg BID.
-Continue Eliquis
Tachycardia-bradycardia syndrome:
-Status post dual-chamber ICD on 06/26/2023
-Continue amiodarone and metoprolol tartrate as above.
HTN:
-Fairly controlled.
Subjective:
No major events overnight.
Physical Exam
Vital Signs/Labs
Vital Signs
Temp Pulse Resp BP Pulse Ox
98.4 F 60 16 162/92 98
06/27/23 05:07 06/27/23 05:00 06/27/23 05:07 06/27/23 04:47 06/27/23 05:07
06/26/23 06/27/23 06/28/23
06:59 06:59 06:59
Actual Weight 61.7 kg
06/27/23 05:01
06/27/23 05:01
APTT Cancelled 06/26/23 21:00
Magnesium 2.0 mg/dl (1.6-2.3) 06/27/23 05:01
Triglycerides 77 mg/dl (10-149) 06/21/23 03:39
LDL Cholesterol, Calc 83 mg/dl 06/21/23 03:39
VLDL Cholesterol, Calc 15 mg/dl (0-30) 06/21/23 03:39
HDL Cholesterol 119 mg/dl 06/21/23 03:39
Physical Exam
Constitutional: No acute distress and Comfortable
Cardiovascular: Rhythm & rate is regular, Pedal edema is absent and Systolic murmur present
Respiratory: Respiratory effort normal, Lungs clear to auscul. and Crackles Absent
GI: Soft, Non tender and Normal bowel sounds
Neuro/Psych: Alert and AO x 3
Other: Cardiac Device Site
Data Reviewed
-
Date of Service: June 27, 2023
Medical Decision Making: Reviewed Test Results and Independent Historian Assessment
EKG: Tracing Personally Visualized and interpreted and Report Reviewed by me
Echo: Report Reviewed by me
Labs: Labs Reviewed by me
Old Records: Reviewed
--- NOTE | 2023-06-27 08:53 | W.PN.HOSP.TC ---
Today's Communication/Plan
-
d/c
Assessment / Plan
Assessment / Plan
pt is an 82 year old female
monomorphic VT overnight 06/22 to 06/23--eliquis to restart--cath 06/24 essentially normal--s/p ICD placement
paroxysmal A-fib with RVR (pt does not feel her increased HR all the time)--was hospitalized end of April for the same and meds were increased from 25 mg BID metoprolol to 50mg BID and diltiazem 240 mg to 360mg--then saw cardiology in office, was
sinus rhythm and took the original does of meds per cards--now back in afib--had attempted cardioversion x 7 in ED--apprec cards --failed Tikosyn load as got monomorphic VT--now on amio
chronic Hyponatremia--follow--off fluid restriction per pt--restart
Essential Hypertension--metoprolol and cardizem drip
Open right inguinal hernia repair by Dr. Aragon on 05/21/2023
History of endocarditis
History of meningioma surgery
DVT prophylaxis-Eliquis
code status--Full code
Anticipated Discharge: Today
Subjective/Interval History
-
Date of Service: June 27, 2023
pt doing well--hopeful home next week
Objective Data
-
Labs:
Laboratory Results
06/26/23 06/27/23 06/27/23
21:00 05:01 06:00
WBC 6.2
Hgb 12.2
Hct 35.5 L
Plt Count 271
APTT Cancelled Pending
Sodium 131 L
Potassium 4.8
Chloride 103
Carbon Dioxide 23
BUN 11
Creatinine 0.7
Glucose 91
Calcium 9.3
Vital Signs:
max temp for 24 hours
06/26/23
21:02
Temp 98.9 F
Vital Signs
Temp Pulse Resp BP Pulse Ox
98.3 F 60 18 162/92 100
06/27/23 08:20 06/27/23 05:00 06/27/23 08:20 06/27/23 04:47 06/27/23 08:20
I&O
06/26/23 06/27/23 06/28/23
06:59 06:59 06:59
Intake Total 251.6 / 251.6
Balance 251.6 / 251.6
Review of Systems
-
All other systems: Reviewed and negative
Physical Exam
-
General: Well Developed, Well Nourished and No Apparent Distress
HEENT: Normocephalic and Atraumatic
Respiratory: Clear to Auscultation; Negative Wheezes or Rhonchi
Cardiac: Regular Rhythm and S1/S2; Negative Murmur
GI: Soft, Nontender, Nondistended and Normal Bowel Sounds
Musculoskeletal: No Clubbing, No Cyanosis and No Edema
Skin: Warm
Neuro: Awake and Alert
Psych: Calm
--- NOTE | 2023-06-27 10:47 | W.PN.CD ---
Today's Communication / Plan
-
As below
Impression / Plan
-
BACKGROUND: 82 year-old female (known to Dr. Moya, her primary Bagman/Woman) with paroxysmal atrial fibrillation (on Eliquis), hypertension (white coat element), mild aortic regurgitation, recurrent meningiomas status-post gamma knife surgery
for removal of enlarging meningiomas (at the [facility]), and previous viral pericarditis (2012) admitted for Tikosyn loading.
Hypotension, resolved
-Paced on telemetry
-Currently asymptomatic, see below
PAF/VT:
-Admitted for Tikosyn loading; developed sustained monomorphic VT this admission.
-Treated with amiodarone bolus 150 mg and amiodarone drip initially; transitioned to PO load.
-Cardiac catheterization yesterday was normal.
-Case discussed with EP Cardiology this am; given sustained monomorphic VT, patient will undergo ICD implantation today.
-Continue amiodarone load with 400 mg PO BID, will decrease in the outpatient setting
-Resume prior dose of metoprolol succinate
-Briefly on heparin gtt, back on apixaban
Tachycardia-bradycardia syndrome:
-ICD implantation 06/26/2023 (dual chamber)
-Continue amiodarone and metoprolol succinate
HTN, fairly controlled.
SUBJECTIVE:
Called to see patient. She was having some abdominal cramping after having prune juice with her breakfast. She was receiving her discharge instructions and the cramping was persistent. She then felt sweaty but was wearing 2 jackets. One coat was
removed while the nurse continued with discharge instructions. She then reports she felt very dizzy. SBP 70s. She was paced on telemetry. She went to the bathroom and had an episode of loose stool. he is now normotensive and no longer dizzy.
Physical Exam
Vital Signs/Labs
Vital Signs
Temp Pulse Resp BP Pulse Ox
98.3 F 68 18 122/94 100
06/27/23 08:20 06/27/23 08:00 06/27/23 08:20 06/27/23 07:56 06/27/23 08:20
06/26/23 06/27/23 06/28/23
06:59 06:59 06:59
Actual Weight 61.7 kg
06/27/23 05:01
06/27/23 05:01
APTT Cancelled 06/26/23 21:00
Magnesium 2.0 mg/dl (1.6-2.3) 06/27/23 05:01
Triglycerides 77 mg/dl (10-149) 06/21/23 03:39
LDL Cholesterol, Calc 83 mg/dl 06/21/23 03:39
VLDL Cholesterol, Calc 15 mg/dl (0-30) 06/21/23 03:39
HDL Cholesterol 119 mg/dl 06/21/23 03:39
Physical Exam
Constitutional: No acute distress and Comfortable
EENT: Anicteric and Moist mucous membranes
Cardiovascular: S1S2 is normal and Murmur/rub/gallop absent
Respiratory: Respiratory effort normal and Lungs clear to auscul.
GI: Soft, Distention absent, Flat, Non tender and Normal bowel sounds
Neuro/Psych: AO x 3
Other: Skin (warm and dry) and Cardiac Device Site (dressing C/D/I)
Data Reviewed
-
Date of Service: June 27, 2023
Old Records: Reviewed
--- NOTE | 2023-06-27 11:12 | PTCARENOTE ---
Pt oob ad geraldine this am with no c/o. SR and A paced on the monitor. Pt was sitting in the chair dressed in 2 jackets listening to her d/c instructions. Pt stated she became hot and wanted her jacket off. Pt stated she had abdominal cramping and then
felt dizzy. Pt assisted back to bed bp 79/53. IV NSS started. After about 10 minutes pt stated she felt better. Bp 123/97. Dr. Molina notified. Pt had episode of diarrhea after BP stabilized. Pt's discharge will be delayed for a few hours as per
Dr. Emery. Pt ambulated in the hallway with the nurse with no issues. Bp remains at baseline. Pt OOB sitting in the chair.
--- NOTE | 2023-06-27 13:23 | PTCARENOTE ---
Pt has been ambulating in the hallway. Denies any of the dizziness she felt earlier today. Bp remains stable. Pt discharged to home with her . Discharge instructions given and reviewed with good understanding.
--- NOTE | 2023-06-27 14:34 | W.DCSUMMARY ---
Discharge Summary
Discharge Data
Date of Admission: 06/20/23
Date of Discharge: 06/27/23
-
Pending Results: No
Hospital Course
Primary care physician : Demi Galvez
Principal Discharge diagnosis : Monomorphic V. tach, paroxysmal atrial fibrillation with rapid ventricular response
Chronic Discharge diagnosis : Chronic hyponatremia, essential hypertension, history of recent right inguinal hernia repair, history of endocarditis, history of meningioma surgery
Hospital Course : Pt was an 82-year-old female with a history of atrial fibrillation, hypertension, valvular disease, UTI, uterine fibroids presented to us with palpitation, fatigue and tired since last night prior to admission. Patient was
usually taking 25 twice a day metoprolol and Cardizem to 240 at bedtime. Patient was admitted here at the end of April, and her Cardizem was increased to 360 and metoprolol 50 bid. Patient was evaluated by cardiology meanwhile and her Cardizem and
Lopressor was changed to her previous dose. The night prior to admission, patient was very tired and short of breath was worse with exertion. Patient denied any chest pain, headache, syncopal episode, dizziness. On arrival patient was A-fib with
RVR. Cardioverted x 7 with no relief in her symptoms. Patient started on Cardizem drip. Patient was admitted.
Problem #1: Monomorphic V. tach. This happened after the Tikosyn load. Patient underwent cardiac catheterization followed by ICD placement. Coronary arteries were within normal limits and no stents were needed. Patient tolerated her ICD
placement well.
Problem #2: Paroxysmal atrial fibrillation with rapid ventricular response. Patient was admitted and seen in consultation by cardiology. Cardioversion x 7 was attempted in emergency department. Plans were to start Tikosyn loading but patient had
monomorphic V. tach and Tikosyn loading was stopped. Patient is now on amiodarone and will be discharged on amiodarone.
Problem #3: All other medical issues. These include Chronic hyponatremia, essential hypertension, history of recent right inguinal hernia repair, history of endocarditis, history of meningioma surgery. These medical issues were stable during her
hospitalization. Medications were continued as able.
Patient is stable for discharge home at this time. If there are any questions regarding this dictation or her hospital stay, please not hesitate to call. Our office number is [phone].
Procedure findings :
CARDIAC CATHETERIZATION CONCLUSIONS:
1: Mild global hypokinesis with EF 49% with moderate mitral regurgitation
2: Normal coronary arteries
Discharge Plan
-
Patient Disposition: Home with Home Care
Discharge Diagnosis/Procedures: Monomorphic ventricular tachycardia status post cardiac cath with ICD, paroxysmal atrial fibrillation with rapid ventricular response, chronic hyponatremia, essential hypertension, history of open right inguinal
hernia repair, history of endocarditis, history of meningioma surgery
Condition: Good
Diet: Low Cholesterol and Restrict fluids to 48 oz
Activity: No strenuous activity
Driving Restrictions: No driving for 1 week
Bathing Restrictions: OK to Shower
Stand Alone Forms: DC Instructions- Cath/EP Lab, DC Inst - Implanted Device
Referrals:
[facility] [Outside]
Demi Galvez MD [Family Provider] - in less than 1 week
Sejal Gomez CRNP [Specified Professional Personl] - 07/03/23 9:20 am
Prescriptions:
New
amiodarone [Pacerone] 200 mg Tablet
400 mg PO BID Qty: 120 0RF
Continued
cyanocobalamin (vitamin B-12) [Vitamin B-12] 1,000 mcg Tablet
1,000 mcg PO DAILY
calcium citrate 250 mg calcium Tablet
250 mg PO DAILY Qty: 0
acetaminophen 500 mg Tablet
1,000 mg PO QIDPRN PRN (Reason: mild pain)
polyethylene glycol 3350 [Miralax] 17 gram Powder In Packet
17 g PO DAILYPRN PRN (Reason: constipation)
docusate sodium [Colace] 100 mg Capsule
100 mg PO BID
Eliquis 5 MG tablet
5 mg PO BID Qty: 0 0RF
metoprolol succinate 50 mg tablet extended release 24 hr
25 mg PO BID
Discontinued
diltiazem HCl 240 mg Capsule,Extended Release 24 Hr
240 mg PO QPM
Rx Instructions:
dose changed on 06/19/23
Discharge Orders:
Discharge Patient (As Directed); Ordered 06/27/23
Ordered By: Anu Molina
Care Plan Goals
Care Plan Goals:
Problem: Readiness for enhanced knowledge related to diagnosis and treatment plan
Goal: Understand your diagnosis and treatment plan needs, including medications if applicable.
Instructions: Know your diagnosis, underlying causes and treatment plan options, including medications if applicable. Consult with your health care team to learn about your diagnosis and treatment plan, including medications if applicable.
Discharge Date and Time
Discharge Date/Time: 06/27/23 13:33
Print Language: UPPER SORBIAN
== END 2023-06-27 13:33 | disposition home health service (06) | DRG 277 ==
LOC: IVU 16:31
PROVIDERS: Internal Medicine; Internal Medicine Cardiovascular Disease; Registered Nurse; ADMITTING PHYSICIAN Internal Medicine; CONSULT PHYSICIAN Internal Medicine Cardiovascular Disease; EMERGENCY PHYSICIAN Emergency Medicine; FAMILY PHYSICIAN Internal Medicine
PROC: B2111ZZ Fluoroscopy of Multiple Coronary Arteries using Low Osmolar Contrast (ICD-10-PCS; 2023-06-25)
PROC: B2151ZZ Fluoroscopy of Left Heart using Low Osmolar Contrast (ICD-10-PCS; 2023-06-25)
PROC: 4A023N7 Measurement of Cardiac Sampling and Pressure, Left Heart, Percutaneous Approach (ICD-10-PCS; 2023-06-25)
PROC: 02H63KZ Insertion of Defibrillator Lead into Right Atrium, Percutaneous Approach (ICD-10-PCS; 2023-06-26)
PROC: 02HK3KZ Insertion of Defibrillator Lead into Right Ventricle, Percutaneous Approach (ICD-10-PCS; 2023-06-26)
PROC: 0JH608Z Insertion of Defibrillator Generator into Chest Subcutaneous Tissue and Fascia, Open Approach (ICD-10-PCS; 2023-06-26)
DX: I49.5 Sick sinus syndrome (principal); E87.1 Hypo-osmolality and hyponatremia; I47.29 Other ventricular tachycardia; I10 Essential (primary) hypertension; I48.0 Paroxysmal atrial fibrillation; E53.8 Deficiency of other specified B group vitamins; I25.10 Atherosclerotic heart disease of native coronary artery without angina pectoris; I08.0 Rheumatic disorders of both mitral and aortic valves; I95.81 Postprocedural hypotension; Z79.01 Long term (current) use of anticoagulants; Z79.899 Other long term (current) drug therapy; Z86.011 Personal history of benign neoplasm of the brain; Z86.79 Personal history of other diseases of the circulatory system
CPT/HCPCS: 33249; 71045; 80048; 80053; 80061; 83735; 84443; 85025; 85027; 85730; 92960; 93005; 93306; 93458; 96365; 96366; 99152; 99285; C1721; C1769; C1777; C1892; C1894; C1898; Q9967

== ENCOUNTER → 2023-07-03 10:29 | Outpatient (REF) | payer MEDICARE, SELFPAY ==
[2023-07-03 11:37] LABS: % Basophils 0.4 % (0-2); % Eosinophils 0.9 % (0-6); % Immature Granulocytes 0.3 % (0-0.5); % Lymphocytes 22.4 % (20.5-51.1); % Monocytes 7.4 % (1.7-9.3); % Neutrophils 68.6 % (42.2-75.2); Absolute Eosinophils 0.1 10^3/uL (0-0.7); Absolute Lymphocytes 1.6 10^3/uL (1.2-3.4); Absolute Monocytes 0.5 10^3/uL (0.1-0.6); Absolute Neutrophils 4.7 10^3/uL (1.4-6.5); Hematocrit 36.7 % (37.0-47.0); Hemoglobin 12.6 g/dL (12.0-16.0); Mean Corp Hgb Conc. 34.3 g/dL (33.0-37.0); Mean Corpuscular Volume 90.2 fL (81.0-99.0); Mean Platelet Volume 9.5 fL (7.4-10.4); Nucleated Red Blood Cells % 0 %; Platelet Count 321 10^3/uL (130-400); Red Blood Cell Count 4.07 10^6/uL (4.20-5.40); Red Cell Dist. Width 12.4 % (11.5-14.5); White Blood Cell Count 6.9 10^3/uL (4.8-10.8)
[2023-07-03 12:56] LABS: ALT (SGPT) 27 U/L (0-35); AST (SGOT) 33 U/L (14-36); Albumin 4.5 g/dl (3.5-5.0); Alkaline Phosphatase 118 U/L (38-126); Blood Urea Nitrogen 11 mg/dl (7-17); Calcium 9.8 mg/dl (8.4-10.2); Carbon Dioxide 27 mmol/L (22-30); Chloride 97 mmol/L (98-107); Glucose 82 mg/dl (70-99); Potassium 4.6 mmol/L (3.5-5.1); Total Bilirubin 0.6 mg/dl (0.2-1.3); Total Protein 7.1 g/dl (6.3-8.2); eGFR > 60.00
[2023-07-03 13:03] LABS: Sodium 131 mmol/L (135-145)
== END ==
LOC: REG 10:29
PROVIDERS: ATTENDING PHYSICIAN Nurse Practitioner; FAMILY PHYSICIAN Internal Medicine
DX: R53.83 Other fatigue (principal); I47.20 Ventricular tachycardia, unspecified; E87.1 Hypo-osmolality and hyponatremia
CPT/HCPCS: 36415; 80053; 85025

== ENCOUNTER 2023-07-06 10:20 | Day surgery (SDC) | payer MEDICARE, SELFPAY ==
[2023-07-06 10:36] VITALS: BP 165/81
[2023-07-06 10:52] VITALS: BMI 22.0
[2023-07-06] MEDS: NSS 500 IV (11:23)
[2023-07-06 15:48] VITALS: BP 127/73
[2023-07-06] MEDS: TYLENOL 650 MG PO (15:53)
[2023-07-06 16:00] VITALS: BP 126/80
--- NOTE | 2023-07-06 16:03 | ITS.CL.PN ---
Supervisor [employer] - Procedure Note
Procedure
Procedure Note:
Pocket Revision for Bi-Ventricular Implantable Cardioverter Defibrillator:
Ms. Rainey is an 82 yrs old woman with paroxysmal atrial fibrillation (on Eliquis), Sick sinus syndrome, hypertension (white coat element), mild aortic regurgitation, recurrent meningiomas status-post gamma knife surgery for removal of enlarging
meningiomas (at the [facility]), and previous viral pericarditis (2012) admitted for Tikosyn loading but developed monomorphic sustained ventricular tachycardia s/p dual chamber ICD on 06/26/23 with heparin drip. Patient was
noted to have small hematoma in the pocket with skin discoloration. Over the next couple of days patient also noted to have more swelling and was advised for pocket revision.
Indications: Pocket hematoma
Date of the Procedure: 07/06/2023
Pre-Operative Diagnosis: Ventricular tachycardia with pocket hematoma to the ICD
Post-Operative Diagnosis: Ventricular tachycardia with pocket hematoma to the ICD
Procedure Performed: Pocket revision, hematoma evacuation and washout of the pocket
Performing Physician:
Rosemary Gomez MD
Anesthesia:
See anesthesia records
Pre-operative antibiotics:
Ancef 2gm IV
Detailed Description of the Procedure:
The patient was identified using hospital identification and informed consent obtained for the procedure. The risks were explained including, but not limited to: Bleeding, infection, arrhythmia, stroke, vascular/cardiac/lung puncture, surgery,
pacemaker dependency/device malfunction. All questions were answered.
The patient was brought to the electrophysiology laboratory in stable condition in fasting state. Continuous electrocardiographic and hemodynamic monitoring was initiated. The initial rhythm was BiV paced.
The procedure site was meticulously prepared with surgical scrub and allowed to dry with no pooling. Sterile draping was applied to cover the procedure site. The image intensifier was draped with sterile bag and positioned over the patient.
The left infraclavicular region was prepped and draped in the usual sterile fashion. Local anesthesia was administered subcutaneously using 1% lidocaine / Bupivacaine. Using the prior incision, the skin was incised again and the debris and the prior
sutures were removed. �Patient skin was healing adequately. There was old dark blood in the pocket in the form of clots. The pocket was cleaned thoroughly. All the blood clots and old blood was removed.� There was no sign of pus or infection.
The old sutures were removed from the skin.�
The generator was anchored to the underlying fascia using 0 silk sutures.
There was excellent sensing, pacing, and impedance from the leads, unchanged from the pre-op testing.
The wound was irrigated thoroughly with antibiotic solution.
A brand new Tyrx pouch was placed around the pocket and the leads. An An
The pocket was closed in 3 layers using 2-0 VLoc sutures and two layers of 4-0 V loc sutures. Steri-Strips and a bandage were applied externally.�
Procedure End:
The procedure was tolerated well. A bandage was applied to the incision area. Pressure dressing was placed.
Estimated Blood loss:
5 cc
Specimens Removed:
No cultures and no specimens were obtained. No intraoperative pathology was identified.
Urine output:
None
Packs / Drains/ Tubes:
None
Instrument / Sponge Count Correct:
Yes
Complications of the Procedure:
None
Condition of Patient at Time of Transfer:
Hemodynamically stable with no neurological or vascular compromise.
Device information:�
Generator: Center'd; Model: [id number]; Serial # [id number]
Atrial Lead: Medtronic; Model: 4574-53; Serial # [id number]
Measured data in the right atrium was sensing of 4 mV, impedance of 684 ohms and threshold of 0.75 V at 0.4ms�
RV Lead: Medtronic; Model: 6935M-62; Serial # [id number]
Measured data in the RV lead was sensing of 12.6mV, impedance of 627ohms and threshold of 0.5 V at 0.4ms�
PROGRAMMING PARAMETERS:�
Randal parameter settings were DDD 50-130 bpm. �
���������� Mode switch: On
����������� Paced AV delay: 130 ms
����������� Sensed AV delay: 100 ms
����������� Rate Adaptive A-V Interval: Off
Tachy parameter settings:
���SVT discrimination:
����������� Wavelet: On
����������� AF/AFl: Off
����������� SVT limit: 260 msec
����������� RV lead noise:on
����������� VT zone:
����������������������� Slow VT: 150-167 bpm -->Monitor
����������������������� Fast VT: 167 - 188 bpm --> 7 bursts then shocks
����������������������� Fast VT / VF: �� >188 bpm --> Shock x6 (ATP before and during)
�
Summary:
Successful pocket revision, cleanup and washout of the previous pocket
Results/Recommendations:
1. Please provide patient with adequate pain control�
2. Hold Eliquis for 5 more days
Instructions to be given to patient:�
- Please follow up with [facility] at [address] [place] [address] ([phone]) to get your wound checked within 14 days of your discharge.
- Do not wet incision site until after it is evaluated at cardiology clinic. No showers until then. Sponge baths are OK.�
- Allow 'steri strips' to fall off on their own�
- Do not lift left elbow above shoulder, particularly with sudden jerking movements, for 1 month�
- Do not lift anything weighing more than 5 pounds with the left arm for 1 month�
- If you notice any fevers, shortness of breath, lightheadedness, chest pain, or worsening swelling in the wound site, please contact the arrhythmia clinic, contact your orthodontic band maker, or present to the hospital for evaluation.�
Rosemary Gomez MD
Electrophysiology
[2023-07-06 16:15] VITALS: BP 156/75
[2023-07-06 16:33] VITALS: BP 161/79
[2023-07-06 16:36] VITALS: BP 153/74
== END 2023-07-06 16:45 | disposition home or self-care (01) ==
LOC: CATH 10:20
PROVIDERS: ATTENDING PHYSICIAN Internal Medicine Cardiovascular Disease; FAMILY PHYSICIAN Internal Medicine
DX: L76.32 Postprocedural hematoma of skin and subcutaneous tissue following other procedure (principal); Y83.1 Surgical operation with implant of artificial internal device as the cause of abnormal reaction of the patient, or of later complication, without mention of misadventure at the time of the procedure; I48.0 Paroxysmal atrial fibrillation; I08.0 Rheumatic disorders of both mitral and aortic valves; I47.20 Ventricular tachycardia, unspecified; I10 Essential (primary) hypertension; E78.5 Hyperlipidemia, unspecified; I49.5 Sick sinus syndrome; Z95.810 Presence of automatic (implantable) cardiac defibrillator; Z79.01 Long term (current) use of anticoagulants
CPT/HCPCS: 10140

== ENCOUNTER 2023-08-06 10:55 | Inpatient (IN) | payer MEDICARE, SELFPAY ==
[2023-08-06] VITALS (30 sets, daily range): BP systolic 94–165; BP diastolic 51–103; BMI 20.6
--- NOTE | 2023-08-06 06:26 | ED.GENMED ---
History of Present Illness
General
Chief Complaint: Breathing Problem
Time Seen by Provider: 08/06/23 06:26
Travel History
Have you had any contact with someone who has COVID-19?: No
Do you have any symptoms of coronavirus? Fever > 100 degrees, chills, cough, shortness of breath, sore throat, loss of taste or smell, muscle aches, or headache?: No
History of Present Illness
History of Present Illness:
HPI: Patient presents with concerns for A-fib currently on Eliquis. She had abrupt onset symptoms similar to when she had rapid A-fib in the past. She had a failed cardioversion in the ED x 7. She does not want to be cardioverted again in the ED.
She states that Dr. Moya decreased metoprolol and amiodarone dose approximately 2 weeks ago. She states she is compliant with Eliquis.
EXAM:
GENERAL: Well appearing in no distress
HEENT: Moist oral mucosa
CARDIOVASCULAR: No murmurs, tachycardic heart rate, irregular rhythm, No chest wall tenderness
PULMONARY: No respiratory distress, breath sounds are clear and equal
ABDOMEN: Soft with no peritoneal signs, no tenderness
NEUROLOGIC: Excellent strength all extremities, no coordination deficits
PSYCHIATRIC: Appropriate mental status, normal insight and judgement
EXTREMITIES: Nontender, no edema, moves all extremities equally
SKIN: No rash, no lesions
TIME OF INITIAL ENCOUNTER: 6:30 AM
NUMBER AND COMPLEXITY OF PROBLEMS ADDRESSED AT THE ENCOUNTER
� Chronic conditions affecting care: A-fib, hypertension
� Acute Exacerbation and/or Progression of Chronic Illness: This is an acute but recurring problem
� Differential Diagnosis includes: Rapid A-fib, electrolyte abnormality, VT
AMOUNT AND/OR COMPLEXITY OF DATA TO BE REVIEWED AND ANALYZED
� I performed an independent evaluation of and my interpretation is:
EKG: A-fib, rate 133, ST abnormality likely rate related
CT:
X-rays:
Laboratory Studies: CBC and chemistries unremarkable
Other:
� Review of other/old records: I reviewed records. The patient was admitted here about 6 weeks ago with monomorphic VT and paroxysmal A-fib with RVR. Records indicate that she was cardioverted 7 times with no relief in her
symptoms and was started on Cardizem drip. She had monomorphic VT after Tikosyn was loaded she had cath (no CAD found) and ICD placement
� Clinical information was obtained by an independent historian: I spoke to the at bedside
� Prescriptions/Medications Considered but not given:
� Further testing considered but not performed:
RISK OF COMPLICATIONS AND/OR MORBIDITY OR MORTALITY OF PATIENT MANAGEMENT
� Social determinants of health affecting care: Lives at home
� Discussion with other providers: Discussed case with Dr. Moya who agrees with plan and recommends hospitalist admission. Notified hospitalist, Dr. Emanuel, at 7:35 AM
� Escalation of care including admission/observation vs risk of discharge considered: The patient was placed on IV Cardizem bolus and drip. Will hold off on attempted cardioversion as she failed x 7 last ED visit. Patient is
due for amnio and Eliquis�I have ordered these meds.
Past History
Past History
ED Past Medical History: Arrthythmia (Atrial fibrillation), HTN, Valvular disease (Endocarditis) and Other (UTI, uterine fibroids); Negative Asthma, CAD, Cancer, CHF, Hypercholesterolemia or NIDDM
ED Past Surgical History: Appendectomy, and Other (Meningioma surgery, friable iridectomy,); Negative Cardiac
Patient has exhibited threatening behavior?: No
Social History
Tobacco: 2nd hand smoke exposure (Father was a smoker, patient reports she has been told her lungs 'look like a smokers, but I have never smoked')
Alcohol: Occasional
Drug: None
Personal:
Living: with family
Employment: Retired
Family History
Family History: Other (Noncontributory)
Phy Exam
Physical Exam
Physical Exam:
See HPI
Scores
Heart Failure Risk
Heart Failure Risk Score: Not Applicable
Course
Orders/Labs/Results
Orders:
Orders
08/06/23 04:59
EKG [Electrocardiogram (*1)] Urgent
Reason for Study: Shortness of Breath
EKG- Treatment ONCE
08/06/23 06:37
Diltiazem HCl [Cardizem] 10 mg IV NOW STA
08/06/23 06:45
Diltiazem 125 mg/125 ml Nss [Cardizem] 125 mg in 125 ml IV PER PROTOCOL
Initial dose in mg/hr, then titrate:: 10
Titrate to keep:: Heart rate 80-100 bpm
Titrate by mg/hr:: 5 mg/hr
Frequency of titrations (minutes):: 15
Maximum dose in mg/hr:: 15
08/06/23 07:01
Complete Blood Count/With Diff Urgent
Comprehensive Metabolic Panel Urgent
Free T4 Urgent
Magnesium Urgent
TSH Reflex To Free T4 Urgent
08/06/23 07:40
Amiodarone [Pacerone] 200 mg PO NOW STA
Apixaban [Eliquis] 5 mg PO NOW STA
Abnormal Lab Results
08/06/23
07:01
MCH 31.2 H pg
(27.0-31.0)
Plt Count 439 H 10^3/uL
(130-400)
Abs Immat Gran (auto) 0.1 H 10^3/uL
(0-0.05)
Absolute Monos (auto) 0.8 H 10^3/uL
(0.1-0.6)
Immature Gran % 1.5 H %
(0-0.5)
Lymphocytes % 16.8 L %
(20.5-51.1)
Monocytes % 9.5 H %
(1.7-9.3)
AST 43 H U/L
(14-36)
Alkaline Phosphatase 148 H U/L
(38-126)
TSH (Reflex) 10.80 H uIU/ml
(0.47-4.68)
08/06/23 07:01
08/06/23 07:01
Vital Signs
Initial and Last Documented VS:
Initial Vital Signs
Temp Pulse Resp BP Pulse Ox
97.6 F 133 18 165/88 97
08/06/23 05:04 08/06/23 05:04 08/06/23 05:04 08/06/23 05:04 08/06/23 05:04
Last Documented Vital Signs
Temp Pulse Resp BP Pulse Ox
97.6 F 83 23 118/96 95
08/06/23 05:04 08/06/23 08:05 08/06/23 07:45 08/06/23 08:05 08/06/23 07:50
*Pulse Oximetry
Patient hypoxic: no
*Critical Care Note
Total Time (30-74mins, 75-104mins- exclusive of procedures): 40min
comment:
Patient arrives in rapid atrial fibrillation. Emergently placed on Cardizem bolus and drip. Vital signs closely monitored. Cardiology.
ED Attending Note
-
Portions of this chart may have been created with voice recognition software.� Occasional wrong word or��sound alike� substitutions may have occurred due to the inherent limitations of voice recognition software.
Discharge Plan
Departure
Patient Disposition: Admit
Date of Disposition: 08/06/23
Time of Disposition: 07:35
Presentation/result/management discussed w/ accepting MD/DO: Hospitalist
Discharge Problem:
Atrial fibrillation with rapid ventricular response
Prescriptions:
No Action
cyanocobalamin (vitamin B-12) [Vitamin B-12] 1,000 mcg Tablet
1,000 mcg PO Q48H
calcium citrate 250 mg calcium Tablet
250 mg PO DAILY Qty: 0
acetaminophen 500 mg Tablet
1,000 mg PO QIDPRN PRN (Reason: mild pain)
polyethylene glycol 3350 [Miralax] 17 gram Powder In Packet
17 g PO DAILYPRN PRN (Reason: constipation)
Eliquis 5 MG tablet
5 mg PO BID Qty: 0 0RF
metoprolol succinate 50 mg tablet extended release 24 hr
50 mg PO QPM
amiodarone [Pacerone] 200 mg tablet
200 mg PO DAILY
Referrals:
Demi Galvez MD [Family Provider] -
Interventions
Interventions:
*Risk Screen - Suicide Last Done: 08/06/23 05:04
*General Assessment Last Done: 08/06/23 05:04
*Neglect/Abuse Screening Last Done: 08/06/23 05:04
ED- Fall Risk Assessment Last Done: 08/06/23 05:04
*ED COVID-19 Vaccine History Last Done: 08/06/23 05:04
ED- Cardiac Assessment Last Done: 08/06/23 07:50
ED- Pulmonary Assessment Last Done: 08/06/23 07:50
Discharge Date and Time
Print Language: HEBREW
[2023-08-06] MEDS: CARDIZEM 10 MG IV (07:05)
[2023-08-06] MEDS: CARDIZEM 125 IV (07:12)
[2023-08-06 07:21] LABS: % Basophils 0.8 % (0-2); % Eosinophils 1.4 % (0-6); % Immature Granulocytes 1.5 % (0-0.5); % Lymphocytes 16.8 % (20.5-51.1); % Monocytes 9.5 % (1.7-9.3); Absolute Basophils 0.1 10^3/uL (0-0.2); Absolute Eosinophils 0.1 10^3/uL (0-0.7); Absolute Immature Granulocytes 0.1 10^3/uL (0-0.05); Absolute Lymphocytes 1.5 10^3/uL (1.2-3.4); Absolute Monocytes 0.8 10^3/uL (0.1-0.6); Absolute Neutrophils 6.2 10^3/uL (1.4-6.5); Hematocrit 40.1 % (37.0-47.0); Hemoglobin 13.7 g/dL (12.0-16.0); Mean Corp Hgb Conc. 34.2 g/dL (33.0-37.0); Mean Corpuscular Hgb 31.2 pg (27.0-31.0); Mean Corpuscular Volume 91.3 fL (81.0-99.0); Nucleated Red Blood Cells % 0 %; Platelet Count 439 10^3/uL (130-400); Red Blood Cell Count 4.39 10^6/uL (4.20-5.40); Red Cell Dist. Width 12.7 % (11.5-14.5); White Blood Cell Count 8.8 10^3/uL (4.8-10.8)
[2023-08-06 07:33] LABS: ALT (SGPT) 27 U/L (0-35); AST (SGOT) 43 U/L (14-36); Albumin 3.6 g/dl (3.5-5.0); Alkaline Phosphatase 148 U/L (38-126); Blood Urea Nitrogen 15 mg/dl (7-17); Calcium 9.5 mg/dl (8.4-10.2); Carbon Dioxide 28 mmol/L (22-30); Chloride 100 mmol/L (98-107); Glucose 96 mg/dl (70-99); Potassium 4.4 mmol/L (3.5-5.1); Sodium 135 mmol/L (135-145); Total Bilirubin 0.3 mg/dl (0.2-1.3); Total Protein 6.5 g/dl (6.3-8.2); eGFR > 60.00
[2023-08-06] MEDS: PACERONE 200 MG PO (08:05)
[2023-08-06] MEDS: ELIQUIS 5 MG PO ×2 (08:05→20:34)
[2023-08-06 08:50] LABS: Free T4 1.27 ng/dl (0.78-2.19)
--- NOTE | 2023-08-06 10:29 | HPS.HSE ---
Family Physician
-
Family Physician: Demi Galvez
Chief Complaint
-
Palpitations
History of Present Illness
82-year-old female past medical history of atrial fibrillation on multiple medication with recent adjustment of decrease of metoprolol and amiodarone was presented with palpitation. Patient states she woke up with palpitation and felt like she is
back in A-fib. As outpatient, Toprol dose was decreased as she was complaining of increased amount of fatigue which could have been attributed to high-dose of beta-marley. Patient woke up this morning with palpitation. Noted chest pain or
shortness of breath PND orthopnea. Patient came into the ER and was found to be in A-fib with RVR and started on Cardizem drip. Patient is currently maxed out on Cardizem drip at 15 mg/h. Patient has been cardioverted multiple times in the past
which was unsuccessful. Patient currently refused to be cardioverted in the ER.
Medical History
Past Medical History
Past Medical History: Reports Other
Additional Past Medical History:
Monomorphic V. tach
Paroxysmal atrial fibrillation
Chronic hyponatremia
Hypertension primary
History of endocarditis
History of meningioma
Past Surgical History: Reports Other
Additional Past Surgical History:
ICD placement
Open right inguinal hernia repair
History of meningioma status post surgery
Appendectomy
Myomectomy
Right retinal surgery
Hip replacement
Social History
Tobacco: Non-smoker
Personal:
Living: With Family
Family History
Family History: Not pertinent
Allergies / Home Medications
Allergies reflects when Allergies were last updated in [facility].
Home Medications with original date entered in [facility]
Allergy/Medication List:
Allergies
Allergy/AdvReac Type Severity Reaction Status Date / Time
cat dander Allergy congestion, Verified 08/06/23 05:04
itchy
eyes,
sneezing
pollen extracts Allergy HAYFEVER-congestion, Verified 08/06/23 05:04
itchy
eyes,
sneezing
Home Medications
acetaminophen 500 mg tablet 1,000 mg PO QIDPRN PRN mild pain 05/15/23
calcium citrate 250 mg PO DAILY Supplement ##0 05/15/23
cyanocobalamin (vitamin B-12) 1,000 mcg tablet (Vitamin B-12) 1,000 mcg PO Q48H Supplement 05/15/23
polyethylene glycol 3350 17 gram oral powder packet (Miralax) 17 g PO DAILYPRN PRN constipation 05/26/23
apixaban 5 mg tablet (Eliquis) 5 mg PO BID Blood clot prevention/tx #0 tabs 05/30/23
metoprolol succinate 50 mg tablet,extended release 24 hr 50 mg PO QPM Arrhythmia 06/20/23
amiodarone 200 mg tablet (Pacerone) 200 mg PO DAILY for dysryhmia 07/06/23
Review of Systems
-
History Source: Patient and Family
A 12 point ROS was completed and negative except as noted: Yes
Physical Exam
Vital Signs
Vital Signs
Temp Pulse Resp BP Pulse Ox
97.6 F 83 23 118/96 95
08/06/23 05:04 08/06/23 08:05 08/06/23 07:45 08/06/23 08:05 08/06/23 07:50
Physical Exam
General: No Apparent Distress and Cachectic
HEENT: NormoCephalic, Moist mucous membranes and Atraumatic
Respiratory: Clear
Cardiac: S1/S2, Irregular Rhythm and Tachycardia; No Murmur or Rub
GI: Soft, Non Tender, Non Distended and Normal Bowel Sounds; No Organomegaly
Rectal: Deferred by Provider
Musculoskeletal: No Clubbing, No Cyanosis and No Edema
Skin: No Rash
Neuro: Awake, Alert, Oriented, AO x 3, No Motor Deficits and Nonfocal/grossly intact
Psych: Calm
Laboratory Results
-
08/06/23 07:01
08/06/23 07:
Laboratory Results
Total Bilirubin 0.3 mg/dl (0.2-1.3) 08/06/23 07:
AST 43 U/L (14-36) H 08/06/23 07:
ALT 27 U/L (0-35) 08/06/23 07:
Alkaline Phosphatase 148 U/L (38-126) H 08/06/23 07:
Impression/Plan
-
#Paroxysmal atrial fibrillation with rapid ventricular response
#History of cardioversion in the past unsuccessful
Continue Cardizem infusion 15 mg
Continue with amiodarone
Continue with the 50 mg metoprolol at bedtime
May require additional medication if blood pressure can tolerate it
Continue Eliquis
ECHO pending
Cardiology evaluation
#Ventricular tachycardia status post ICD
Continue with amiodarone monitor on telemetry
Trend electrolytes replete K and mag as needed
History of tachycardia�bradycardia syndrome status post ICD
Primary hypertension
Continue home meds
Chronic hyponatremia
Trend BMP for now
Abnormal thyroid function testing
Elevated TSH but free T4 normal
TSH was normal 2.24 on 06/20/2023.
With significant bump in TSH probably would benefit from Synthroid. Will discuss with patient. Patient's severe fatigue at home could be related to abnormal TSH.
DVT prophylaxis Eliquis
Full code
Discussed with spouse at bedside in details
I spent a total of 78 minutes with the patient or on the floor. More than 50% of this time involved counseling and coordination of care.
--- NOTE | 2023-08-06 10:39 | CON.CAR ---
Addendum entered and electronically signed by Octavio Moya MD 08/06/23 13:08:
Patient seen and examined in collaboration with [employer]; agree with below.
-82-year-old female well known to me in the outpatient setting with known paroxysmal atrial fibrillation (on Eliquis); recently underwent ICD implantation for VT (06/20/2023) and subsequent pocket revision due to hematoma (07/06/2023). Presents today
with atrial fibrillation with RVR.
-The patient has known tachycardia-bradycardia syndrome.
-Patient has been adequately loaded with amiodarone; Toprol-XL recently decreased in the outpatient setting due to fatigue (likely secondary to low blood pressure).
-Will start digoxin load.
-Case discussed with EP Cardiology; patient will be scheduled to undergo outpatient atrial fibrillation ablation procedure (as an outpatient) likely within the next 1-2 weeks.
-panel monitor overnight; will reevaluate tomorrow.
Original Note:
Consultation
Consultation Request
Date/Time Consultation Requested: 08/06/23 1028
Date/Time Consultation Performed: 08/06/23 1106
Requesting Provider: Dr. Khanna
Performing Provider: Michelle STEIN for Dr. Moya
Reason for Consultation: AFIB
Medical History
-
Chief Complaint: AFIB
History of Present Illness:
82 y/o female (patient of Dr. Moya) who has a history of PAF on Eliquis, hypertension, recurrent meningioma s/p recurrent meningiomas status-post gamma knife surgery for removal of enlarging meningiomas ([facility]),
previous viral pericarditis (2012). She was recently struggling with tachy-colton syndrome, and plan was for Tikosyn initiation, but she developed VT requiring amiodarone and ICD placement. Post ICD placement, she had a pocket hematoma, which
required revision after Eliquis temporarily held. She was seen in our office last week. Amiodarone was decreased to maintenance dosing (200 mg daily), and metoprolol was decreased for fatigue (which helped). She was feeling quite well, but then woke
up last night with fluttering and checked her Kardia monitor, which showed AFIB with RVR. She is currently on diltiazem drip. She is in no distress at the time of my assessment.
Past Medical History
Past Medical History: Arrhythmias, HTN and Other (as above)
Social History
Personal:
Living: With Family
Family History
Family History: Reviewed & Not Pertinent
Allergies / Home Medications
Allergy/AdvReac Type Severity Reaction Status Date / Time
cat dander Allergy congestion, Verified 08/06/23 05:04
itchy
eyes,
sneezing
pollen extracts Allergy HAYFEVER-congestion, Verified 08/06/23 05:04
itchy
eyes,
sneezing
�Medication �Instructions �Recorded �Confirmed �Type
acetaminophen 500 mg tablet 1,000 mg PO QIDPRN PRN mild pain 05/15/23 08/06/23 History
calcium citrate 250 mg PO DAILY Supplement ##0 05/15/23 08/06/23 History
cyanocobalamin (vitamin B-12) 1,000 mcg PO Q48H Supplement 05/15/23 08/06/23 History
1,000 mcg tablet (Vitamin B-12)
polyethylene glycol 3350 17 gram 17 g PO DAILYPRN PRN constipation 05/26/23 08/06/23 History
oral powder packet (Miralax)
apixaban 5 mg tablet (Eliquis) 5 mg PO BID Blood clot 05/30/23 08/06/23 Rx
prevention/tx #0 tabs
metoprolol succinate 50 mg 50 mg PO QPM Arrhythmia 06/20/23 08/06/23 History
tablet,extended release 24 hr
amiodarone 200 mg tablet (Pacerone) 200 mg PO DAILY for dysryhmia 07/06/23 08/06/23 History
Review of Systems
-
History Source: Patient
All other systems: Negative unless noted
Cardiac: Palpitations
Physical Exam
Vital Signs
Temp Pulse Resp BP Pulse Ox
97.6 F 83 23 118/96 95
08/06/23 05:04 08/06/23 08:05 08/06/23 07:45 08/06/23 08:05 08/06/23 07:50
Lab Results
08/06/23 07:01
08/06/23 07:01
Physical Exam
General: Well Developed, Well Nourished and No Apparent Distress
HEENT: Normocephalic and Anicteric
Respiratory: Clear and Non Labored Respirations
Cardiac: Irregular Rhythm
Skin: Warm and Dry
Neuro: AO x 3
Psych: Calm
Impression / Plan
-
Atrial fibrillation: paroxysmal
-continue amio, metoprolol. Continue diltiazem drip for now, which requires intensive monitoring.
-continue Eliquis- was briefly on hold with pocket hematoma -resumed 07/13/23 per OP notes
-will discuss case with Dr. Moya
VT:
-ICD in place
-continue amiodarone and metoprolol
-left heart cath showed no CAD
Tachycardia-bradycardia syndrome:
-now with DC ICD in place.
-plan as above
HTN:
-stable
-monitor with med adjustments
ICD:
-site appears well-healing
Data Reviewed
-
EKG: Tracing Personally Visualized and interpreted (AFIB with RVR, ST/T abnormalities)
Radiology: Report Reviewed by me
Medical Tests (Nuc Med, Echo etc): Report Reviewed by me (Echo 06/24/23: LVEF is 55 to 60% by volumetric assessment. Mild mitral regurgitation. Mild aortic regurgitation.Mild tricuspid regurgitation. )
Labs: Labs Reviewed by me
[2023-08-06] MEDS: LANOXIN 250 MCG IV ×2 (12:50→20:34)
[2023-08-06] MEDS: TOPROL XL 50 MG PO (18:06)
[2023-08-06] MEDS: FLUSH (NSS) 2 FLUSH IV (20:37)
[2023-08-07 03:42] VITALS: BP 146/72
[2023-08-07 07:55] VITALS: BP 115/63
[2023-08-07 08:45] LABS: Blood Urea Nitrogen 17 mg/dl (7-17); Calcium 9.6 mg/dl (8.4-10.2); Carbon Dioxide 28 mmol/L (22-30); Chloride 100 mmol/L (98-107); Estimated Creatinine Clearance 45 ml/min; Glucose 79 mg/dl (70-99); Potassium 4.6 mmol/L (3.5-5.1); Sodium 133 mmol/L (135-145); eGFR > 60.00
[2023-08-07] MEDS: OSCAL CAL 500 250 MG PO (09:18)
[2023-08-07] MEDS: FLUSH (NSS) 1 FLUSH IV (09:19)
[2023-08-07] MEDS: PACERONE 200 MG PO (09:19)
[2023-08-07] MEDS: VITAMIN B-12 1000 MCG PO (09:19)
[2023-08-07] MEDS: ELIQUIS 5 MG PO (09:19)
--- NOTE | 2023-08-07 09:42 | W.PN.CD ---
Today's Communication / Plan
-
-Continue current doses of metoprolol succinate and amiodarone.
-Continue Eliquis.
-Echocardiogram yesterday was essentially unremarkable.
-Outpatient follow-up with Cardiology as scheduled; patient will be scheduled to undergo elective atrial fibrillation ablation with EP Cardiology.
Impression / Plan
-
Paroxysmal atrial fibrillation:
-Patient is now back in sinus rhythm/paced after being placed on digoxin.
-Continue digoxin 250 mcg PO daily at home.
-Continue current doses of metoprolol succinate and amiodarone.
-Continue Eliquis.
-Echocardiogram yesterday was essentially unremarkable.
-Outpatient follow-up with Cardiology as scheduled; patient will be scheduled to undergo elective atrial fibrillation ablation with [facility] Cardiology.
VT:
-Stable.
-ICD in place
-continue amiodarone and metoprolol
-left heart cath showed no CAD
Tachycardia-bradycardia syndrome:
-Stable status-post DC IC.
-plan as above
HTN:
-Controlled/stable.
ICD:
-site appears well-healing
Physical Exam
Vital Signs/Labs
Vital Signs
Temp Pulse Resp BP Pulse Ox
97.2 F 60 12 115/63 98
08/07/23 07:55 08/07/23 09:19 08/07/23 07:55 08/07/23 09:19 08/07/23 09:15
08/06/23 08/07/23 08/08/23
06:59 06:59 06:59
Actual Weight 61 kg 59.676 kg
08/06/23 07:01
08/07/23 07:11
Magnesium 2.0 mg/dl (1.6-2.3) 08/06/23 07:01
Free T4 1.27 ng/dl (0.78-2.19) 08/06/23 07:01
Physical Exam
Constitutional: No acute distress and Comfortable
EENT: Anicteric and Moist mucous membranes
Cardiovascular: Rhythm & rate is regular, Pedal edema is absent, Systolic murmur present (2/6) and S1S2 is normal
Respiratory: Respiratory effort normal and Lungs clear to auscul.
GI: Soft
Neuro/Psych: AO x 3
Other: Skin (Warm, dry, intact)
Data Reviewed
-
Date of Service: August 07, 2023
EKG: Tracing Personally Visualized and interpreted (Telemetry: Sinus rhythm, paced)
Echo: Tracing Personally Visualized and interpreted (Normal LVEF; mild to moderate TR, no pericardial effusion.)
Labs: Labs Reviewed by me
--- NOTE | 2023-08-07 10:48 | W.PN.HOSP.TC ---
Today's Communication/Plan
-
Continue cardiac meds per cardiology
Outpatient PCP follow-up for thyroid
Assessment / Plan
Assessment / Plan
#Paroxysmal atrial fibrillation with rapid ventricular response
#History of cardioversion in the past unsuccessful
s/p Cardizem infusion 15 mg
Continue with amiodarone
Continue with the 50 mg metoprolol at bedtime
Started on digoxin
Continue Eliquis
Remains in normal sinus rhythm.
Cardiology plan for outpatient ablation
Cardiology evaluation
#Ventricular tachycardia status post ICD
Continue with amiodarone monitor on telemetry
Trend electrolytes replete K and mag as needed
History of tachycardia�bradycardia syndrome status post ICD
Primary hypertension
Continue home meds
Chronic hyponatremia
Trend BMP for now
Subclinical hypothyroidism
Elevated TSH but free T4 normal
TSH was normal 2.24 on 06/20/2023.
With significant bump in TSH probably would benefit from Synthroid. Patient's severe fatigue at home could be related to abnormal TSH.
Discussed patient abnormal thyroid testing results. She would like to get repeat follow-up done with primary doctor and would like to hold off on starting on Synthroid.
DVT prophylaxis Eliquis
Full code
Discussed with spouse at bedside in details
Discussed with cardiology. Okay for discharge.
More than 30 minutes spent in discharge including
Final examination of the patient
Summarizing hospital stay
Instructions for continuing care to all relevant caregivers
Preparation of discharge records, prescriptions, and referral forms
Total time spent (in minutes): 45
Anticipated Discharge: Today
Subjective/Interval History
-
Date of Service: August 07, 2023
converted to NSR
Feeling better
dyspnea is improving
no chest pain
HR in 60s on tele
Objective Data
-
Labs:
Laboratory Results
08/07/23
07:11
Sodium 133 L
Potassium 4.6
Chloride 100
Carbon Dioxide 28
BUN 17
Creatinine 0.9
Glucose 79
Calcium 9.6
Vital Signs:
Vital Signs
Temp Pulse Resp BP Pulse Ox
97.2 F 60 12 115/63 98
08/07/23 07:55 08/07/23 09:19 08/07/23 07:55 08/07/23 09:19 08/07/23 09:15
I&O
08/06/23 08/07/23 08/08/23
06:59 06:59 06:59
Intake Total 480 / 480
Balance 480 / 480
Physical Exam
-
General: Well Developed, Well Nourished and No Apparent Distress
HEENT: Normocephalic and Atraumatic
Respiratory: Clear to Auscultation; Negative Wheezes or Rhonchi
Cardiac: Regular Rhythm and S1/S2; Negative Murmur
GI: Soft, Nontender, Nondistended and Normal Bowel Sounds
Musculoskeletal: No Clubbing, No Cyanosis and No Edema
Skin: Warm
Neuro: Awake, Alert, AO x 3 and No Motor Deficits
Psych: Calm
--- NOTE | 2023-08-07 10:53 | W.DCSUMMARY ---
Discharge Summary
Discharge Data
Date of Admission: 08/06/23
Date of Discharge: 08/07/23
-
Pending Results: No
Hospital Course
83 female past medical history of atrial fibrillation status post multiple cardioversion attempt which failed, ventricular tachycardia status post ICD implantation, history of tachybradycardia syndrome status post ICD, hypertension, chronic
hyponatremia who is presenting from home with palpitation. Patient stated whenever she feels palpitation she knows she is in rapid ventricular response due to A-fib. Patient was started on Cardizem infusion. Cardizem infusion was discontinued and
patient was started on digoxin. Patient was continued on amiodarone and Toprol. Patient converted to normal sinus rhythm. Upon discharge patient will be continued both on digoxin and amiodarone per cardiology. Toprol was continued. Patient also
with subclinical hypothyroidism with elevated TSH. Recommend to be started on Synthroid which patient refused and states she will have repeat blood work and follow-up with primary doctor. Discussed case with cardiology who stated patient can be
discharged home. Discussed case with patient's spouse who verbalized understanding and also agreed for discharge.
Discharge Plan
-
Patient Disposition: Home (Routine Discharge)
Discharge Diagnosis/Procedures: Atrial fibrillation with rapid ventricular response
Subclinical hypothyroidism
Condition: Fair
Diet: As tolerated
Activity: With assistance and As tolerated
Driving Restrictions: As prior to admission
Blood Work: Thyroid function testing in 4 weeks with primary doctor
Referrals:
Demi Galvez MD [Family Provider] - in less than 1 week
Rosemary Gomez MD [Active] - 08/26/23 10:40 am
Prescriptions:
New
digoxin 250 mcg (0.25 mg) Tablet
250 mcg PO NOON 30 Days Qty: 30 0RF
Continued
cyanocobalamin (vitamin B-12) [Vitamin B-12] 1,000 mcg Tablet
1,000 mcg PO Q48H
calcium citrate 250 mg calcium Tablet
250 mg PO DAILY Qty: 0
acetaminophen 500 mg Tablet
1,000 mg PO QIDPRN PRN (Reason: mild pain)
polyethylene glycol 3350 [Miralax] 17 gram Powder In Packet
17 g PO DAILYPRN PRN (Reason: constipation)
Eliquis 5 MG tablet
5 mg PO BID Qty: 0 0RF
metoprolol succinate 50 mg tablet extended release 24 hr
50 mg PO QPM
amiodarone [Pacerone] 200 mg tablet
200 mg PO DAILY
Discharge Orders:
Discharge Patient (As Directed); Ordered 08/07/23
Ordered By: Keith Khanna
Discharge Date and Time
Discharge Date/Time: 08/07/23 13:26
Print Language: FRISIAN
[2023-08-07 10:55] VITALS: BMI 20.6
--- NOTE | 2023-08-07 11:07 | CM ---
Addendum entered by Patricia Snider 08/07/23 13:00:
Melissa and her reconsidered resumption of home care services due to afib. Referral for [facility] submitted.
Original Note:
I met with Melissa this am; she is being discharged to home.
Melissa lives with her in a ranch style home with 2 entry steps. She has been (I) amb and adls; no DME in the home. She had [facility] in the recent past, however does not feel she will need it when she returns home.
Plan: Discharge to home with no needs
PCP: Demi Galvez
Ph[facility]: [facility]
[2023-08-07 11:45] VITALS: BP 124/67
[2023-08-07] MEDS: LANOXIN 250 MCG PO (12:12)
--- NOTE | 2023-08-07 14:10 | VNURNOTE ---
Home Health Liaison spoke with patient at 1400 to discuss [facility] nurse/therapy, visits, schedule and homebound status. Patient is agreeable only to SN and understands that visits at home will be 2-3 x per week to assess and teach medical management.
Patient is aware that [facility] will contact her for start of care in 1-2 days after discharge from .
[facility] referral completed in [facility].
== END 2023-08-07 13:26 | disposition home or self-care (01) | DRG 309 ==
LOC: 4 EAST ACU 10:55
PROVIDERS: ADMITTING PHYSICIAN Hospitalist; CONSULT PHYSICIAN Internal Medicine; EMERGENCY PHYSICIAN Emergency Medicine; FAMILY PHYSICIAN Internal Medicine
DX: I48.0 Paroxysmal atrial fibrillation (principal); E87.1 Hypo-osmolality and hyponatremia; I47.20 Ventricular tachycardia, unspecified; I49.5 Sick sinus syndrome; E03.8 Other specified hypothyroidism; I10 Essential (primary) hypertension
CPT/HCPCS: 80048; 80053; 83735; 84439; 84443; 85025; 93005; 93306; 96365; 96366; 99291; J1160

== ENCOUNTER → 2023-08-18 06:51 | Outpatient (REF) | payer MEDICARE, SELFPAY | LOC: RSP 06:51 | PROVIDERS: ATTENDING PHYSICIAN Nurse Practitioner; FAMILY PHYSICIAN Internal Medicine | DX: I47.20 Ventricular tachycardia, unspecified (principal); I48.0 Paroxysmal atrial fibrillation; Z79.899 Other long term (current) drug therapy | CPT/HCPCS: 94727; 94729; 88738; 94010 ==

== ENCOUNTER → 2023-08-20 14:40 | Outpatient (REF) | payer MEDICARE, SELFPAY | LOC: REG 14:40 | PROVIDERS: ATTENDING PHYSICIAN Internal Medicine | DX: M25.552 Pain in left hip (principal) | CPT/HCPCS: 72110; 73502 ==

== ENCOUNTER → 2023-10-01 14:41 | Outpatient (REF) | payer MEDICARE, SELFPAY ==
[2023-10-01 17:18] LABS: Sodium 126 mmol/L (135-145)
== END ==
LOC: REG 14:41
PROVIDERS: ATTENDING PHYSICIAN Internal Medicine
DX: E87.1 Hypo-osmolality and hyponatremia (principal)
CPT/HCPCS: 36415; 84295

== ENCOUNTER 2023-10-02 06:00 | Day surgery (SDC) | payer MEDICARE, SELFPAY ==
[2023-09-21 13:27] VITALS: BMI 20.9
[2023-09-21 14:10] LABS: % Basophils 0.6 % (0-2); % Eosinophils 0.8 % (0-6); % Immature Granulocytes 0.2 % (0-0.5); % Lymphocytes 31.4 % (20.5-51.1); % Monocytes 7.6 % (1.7-9.3); % Neutrophils 59.4 % (42.2-75.2); Absolute Lymphocytes 1.6 10^3/uL (1.2-3.4); Absolute Monocytes 0.4 10^3/uL (0.1-0.6); Hematocrit 33.3 % (37.0-47.0); Hemoglobin 11.5 g/dL (12.0-16.0); Mean Corp Hgb Conc. 34.5 g/dL (33.0-37.0); Mean Corpuscular Hgb 32.2 pg (27.0-31.0); Mean Corpuscular Volume 93.3 fL (81.0-99.0); Mean Platelet Volume 8.7 fL (7.4-10.4); Nucleated Red Blood Cells % 0 %; Platelet Count 327 10^3/uL (130-400); Red Blood Cell Count 3.57 10^6/uL (4.20-5.40)
[2023-09-21 14:29] LABS: ALT (SGPT) 19 U/L (0-35); AST (SGOT) 27 U/L (14-36); Albumin 4.2 g/dl (3.5-5.0); Alkaline Phosphatase 71 U/L (38-126); Blood Urea Nitrogen 15 mg/dl (7-17); Calcium 9.5 mg/dl (8.4-10.2); Carbon Dioxide 28 mmol/L (22-30); Chloride 95 mmol/L (98-107); Estimated Creatinine Clearance 41 ml/min; Glucose 120 mg/dl (70-99); Potassium 4.4 mmol/L (3.5-5.1); Sodium 128 mmol/L (135-145); Total Bilirubin 0.3 mg/dl (0.2-1.3); Total Protein 6.3 g/dl (6.3-8.2); eGFR 56.25
[2023-09-21 14:56] LABS: Digoxin < 0.4 ng/ml (0.8-2.0)
[2023-09-21 16:17] LABS: Free T3 2.31 pg/ml (2.77-5.27); Free T4 0.99 ng/dl (0.78-2.19)
[2023-09-21 16:31] LABS: TSH 9.72 uIU/ml (0.47-4.68)
[2023-09-23 17:54] LABS: Thyroid Peroxidase Ab (TPO) <0.3 IU/mL (0.0-9.0)
[2023-09-23 18:17] LABS: Thyroglobulin 94.8 ng/mL (1.3-31.8); Thyroglobulin Antibodies <0.9 IU/mL (0.0-4.0)
[2023-09-23 20:37] LABS: Total T3 (Sendout) 56 ng/dL (80-200)
[2023-09-24 03:13] LABS: Thyroid Stim. Immunoglobulin <0.10 IU/L (<=0.54)
[2023-10-02] VITALS (15 sets, daily range): BP systolic 100–175; BP diastolic 63–95; BMI 20.9
--- NOTE | 2023-10-02 07:44 | PTCARENOTE ---
Pt here for a PVI today. Pt's sodium level is trending down. Sodium level was 133 on 08/07/2023, 128 on 09/21/2023, and 126 on 10/01/2023. Dr Gomez and Dr Alejandre made aware via tigertext. No further treatment ordered. Will continue to monitor.
[2023-10-02 08:31] LABS: Sodium 133 mmol/L (135-145)
--- NOTE | 2023-10-02 10:15 | PTCARENOTE ---
Repeat sodium level drawn in procedure room. Result is 133 per EP staff and meditech. Will continue to monitor.
--- NOTE | 2023-10-02 10:20 | ITS.CL.ABL ---
[employer] Le[employer] Agent - Ablation
Ablation
Procedure Report:
AFIB ablation:
Ms. Rainey is a very pleasant 82 yr old woman with symptomatic paroxysmal AF failed Amiodarone presented today to the EP lab for atrial fibrillation ablation.
Date of the Procedure:
10/02/2023
Indications:
Paroxysmal atrial fibrillation
Pre-Operative Diagnosis:
Paroxysmal atrial fibrillation
Post-Operative Diagnosis:
Paroxysmal atrial fibrillation
Procedure Performed:
Atrial fibrillation ablation with Pulsed-Field approach for pulmonary vein isolation
Performing Physician:
Rosemary Gomez MD
Assistants:
EP staff
Anesthesia:
See anesthesia records
Detailed Description of the Procedure:
Written informed consent was obtained from the patient after a full explanation of the risks and benefits of the procedure including the risks of sedation and anesthesia.
The patient was brought to the electrophysiology laboratory in stable condition in fasting state. Continuous electrocardiographic and hemodynamic monitoring was initiated.
Device Interrogation:
Patient has Med[employer]onic ICD in place. The device was interrogated at the start of the case. The device and the lead was working normally. The tachy-therapies monitoring and interventions were suspended before the start of the case. The programmer analyst consultant
remained connected in the room throughout the procedure.
At the end of the case the device was reprogrammed to normal functioning at the previous settings. All therapies are resumed and ICD was armed before patient left the procedure room.
The initial rhythm was normal sinus rhythm with demand atrial pacing.
The procedure site was meticulously prepared with surgical scrub and allowed to dry with no pooling. Sterile draping was applied to cover the procedure site. The image intensifier was draped with sterile bag and positioned over the patient. After
infusion of local anesthetic, vascular access was obtained under ultrasound guidance and sheaths were placed over guide wire as detailed below.
Sheath and Catheter Placement:
In the right femoral vein, an 8-Filipino sheath was placed under ultrasound guidance for use during the ablation procedure and a mapping catheter was intermittently placed in the high right atrium, right ventricle, left atrium. In the right femoral
vein, another 9-Fr sheath was placed for use during intra-cardiac echo procedure. Another 7Fr sheath was placed in the left femoral vein for CS catheter placement.
The sheaths were upgraded as needed during the case. Intra-cardiac catheters were positioned using direct fluoroscopic guidance. Decapolar catheter advanced into CS position. ICE catheter was placed in RA. The following catheters / sheaths were
placed
Sheaths:
��������� 15Fr steerable sheath (FlexCath Cross�, Televerde) in right femoral vein in right femoral vein
��������� 9Fr in right femoral vein
Catheters:
��������� ALF HD Grid mapping catheter � at locations of RA, LA
��������� PulseSelect� PFA catheter
��������� ICE catheter -AcuNav - at locations of RA, SVC, and RV.
��������� Decapolar Bard catheter in RA and CS
Intracardiac ECHO:
An 8-Filipino AcuNav intracardiac ECHO (ICE) probe was advanced through the 9-Filipino sheath in the right femoral vein into the right atrium under fluoroscopic and ICE ultrasound image guidance and a baseline ECHO study was performed. The left atrial
size was mildly dilated. There was moderate tricuspid regurgitation. The aortic valve was grossly normal. There was normal left ventricular systolic functions. There is no pericardial effusion. All the four veins were identified and has flow
identified.
During the procedure, ICE was used for monitoring of complications, guidance of trans-septal puncture, monitor the catheter position and tracking ablation lesions. No change in the pericardial space noted throughout the procedure.
Trans-septal Puncture:
Heparin was initiated and infused to maintain appropriate ACT. A J-tipped guidewire was advanced through the 8-Filipino sheath in the right femoral vein into the superior vena cava under fluoroscopic and ICE guidance. The 8-Filipino sheath was exchanged
for a FlexCath Cross sheath which was advanced into the superior vena cava. An fake company 2.0 transseptal access system was utilized to perform the trans-septal puncture. The apparatus was withdrawn until it was in contact with the fossa ovalis. The
position was adjusted based on fluoroscopy and ultrasound images from ICE. Under fluoroscopic, hemodynamic and ICE ultrasound guidance, left atrium was cannulated by advancing the needle. Once atrial septum was cannulated, the needle was pulled back
and a guide wire was advanced through the needle into the left atrium. The guide wire was advanced into the left superior pulmonary vein. Both the sheath and the dilator was advanced into the left atrium. The dilator with the needle was withdrawn.
Blood was aspirated from the FlexCath cross sheath and arterial blood confirmed. The sheath was flushed. Saline injection noted into the left atrium on ICE. The mapping catheter was advanced in the Agilis sheath into the left pulmonary vein. Left
atrial pressure was measured.
3D Electroanatomic Mapping:
Using the HD Grid catheter advanced through sheath into the left atrium, an electroanatomic map (EAM) of the left atrium was created using [employer] mapping system. The map was used for localization of catheter position and tacking of ablation
lesions. The EAM of the left atrium showed 4 pulmonary veins with two left sided and two right sided veins electrically connected to the body the LA. The EAM showed no significant scar in the left atrium.
The LA was normal in size.
Following the EAM, preparation were made for ablation.
Ablation:
Ablation # 1: Pulmonary vein Isolation:
Using Nom[employer]� pulsed field ablation system, pulmonary vein isolation was acieved. First the ablation catheter was placed in the LSPV and ostial ablation lesions were performed in a counter clock borja approach all around the PV ostium
circumferentially. Then the catheter was placed on the antral location and multiple ablation lesions were placed circumferentially on the antrum of the vein.
In the similar fashion, the LIPV were isolated.
Then the catheter was moved to right sided veins. The phrenic nerve was paced before and after the ablation on the right sided vein jong the anterior ablations.
The ostial and antral ablations were placed as noted above.
Post ablation Electroanatomic mapping:
Once the sinus rhythm achieved, the LA was mapped with HD grid in detail.
The veins were isolated and normal electrograms noted in the posterior wall. Excellent WACA ablation noted with excellent demarcation of LA myocardium and isolated antral tissue. There was dissociated signals were noted in the veins as well.
EPS and Confirmation of the PVI and bidirectional block:
Following achievement of entrance block at the pulmonary veins, pacing from the HD catheter in each of the four veins at 10 milliamps for 2 milliseconds showed entrance and exit block. All PVI were rechecked at the end of the case and remained
isolated with dissociated and local capture with pacing. Entrance and exit block were demonstrated in all veins.
Procedure End
ICE study was done again that showed no epicardial accumulation. No complications noted.
Following the completion of the EP study, catheters were removed. Protamine 30 mg was given at the end of the procedure and ACT was checked repeatedly. The sheaths were removed and hemostasis achieved with manual compression after acceptable ACT is
achieved.
Left atrial Pressure:
Pre Mean RA pressure was 2mmHg
Pre Mean LA pressure was 4mmHg
Post Mean LA pressure was 8mmHg
Pre Mean RA pressure was 4mmHg
Estimated Blood loss:
<10 cc
Specimens Removed:
None.
Implants / Devices:
None
Urine output:
None
Packs / Drains/ Tubes:
None
Instrument / Sponge Count Correct:
Yes
Complications of the Procedure:
None
Condition of Patient at Time of Transfer:
Hemodynamically stable with no neurological or vascular compromise.
Summary:
Successful atrial fibrillation ablation with Pulsed Field approach for pulmonary vein isolation
Figures from the Procedure:
Figure 1: The electroanatomic mapping (EAM) of the left atrium with bipolar voltage (purple indicates normal electrical activity with hill as no myocardial muscle electric activity indicating a line of block or scar.
[2023-10-02 10:42] LABS: ACT-LR - POC > 397 Seconds (116-155)
[2023-10-02 10:42] LABS: ACT-LR - POC > 397 Seconds (116-155)
[2023-10-02 10:42] LABS: ACT-LR - POC > 397 Seconds (116-155)
--- NOTE | 2023-10-02 12:48 | W.PN.UPDATE ---
Update Note
Progress Note Update
Pt seen post PFA. Right groin site with vascade closure, no ht/bleeding, non tender. OOB ambulating, urinating without difficulty. Post EKG NSR 60s, no acute changes. Resume eliquis tonight. Followup at [facility] arranged. Home today if groin site/tele
remain stable.
== END 2023-10-02 12:50 | disposition home or self-care (01) ==
LOC: CATH 06:00
PROVIDERS: ATTENDING PHYSICIAN Internal Medicine Cardiovascular Disease; FAMILY PHYSICIAN Internal Medicine; OTHER PHYSICIAN Internal Medicine; OTHER PHYSICIAN Physician Assistant
DX: I48.0 Paroxysmal atrial fibrillation (principal); Z79.899 Other long term (current) drug therapy; I49.5 Sick sinus syndrome; I10 Essential (primary) hypertension; M19.90 Unspecified osteoarthritis, unspecified site; M81.0 Age-related osteoporosis without current pathological fracture; E03.9 Hypothyroidism, unspecified; D32.0 Benign neoplasm of cerebral meninges; I47.29 Other ventricular tachycardia; Z79.890 Hormone replacement therapy; Z79.01 Long term (current) use of anticoagulants
CPT/HCPCS: C1732; C1730; C1733; C1769; C1894; C1766; C1759; 36415; 76937; 80053; 80162; 84295; 84432; 84439; 84443; 84445; 84480; 84481; 85025; 85347; 86376; 86800; 86850; 86900; 86901; 93005; 93656; C1760

== ENCOUNTER → 2023-11-24 12:29 | Outpatient (REF) | payer MEDICARE, SELFPAY | LOC: HWRAD 12:29 | PROVIDERS: ATTENDING PHYSICIAN Internal Medicine Critical Care Medicine | DX: Z79.899 Other long term (current) drug therapy (principal); R06.89 Other abnormalities of breathing | CPT/HCPCS: 71250 ==

== ENCOUNTER 2023-12-18 16:03 | Emergency (ER) | payer MEDICARE, SELFPAY ==
[2023-12-18 16:05] VITALS: BP 161/80
[2023-12-18 18:14] VITALS: BMI 20.3
--- NOTE | 2023-12-18 18:36 | ED.MUSCINJ ---
HPI-Injury
General
Chief Complaint: Fall
Source: patient and spouse
Exam Limitations: none
Time Seen by Provider: 12/18/23 17:53
History of Present Illness-Injury
Is this injury a work related problem?: No
Is pt an associate of [facility]?: No
Initial Injury comments:
This is a 83 year old female that comes in with c/o fall. States that they went to [facility] for Lunch. State that she was in a book store and looking at cards. States that there was a small step down that she did not see and she fell landing on her
left hip and wrist. Patient is adamant that she did not hit her head. states that she got up and walked and they went to sit down. States that when she sat down she fainted. Patient states that she has done this in the past due to pain.
Denies any fever, chills, chest pain, SOB, abd pain, nausea, vomiting, diarrhea, headache, dizziness, urinary burning.
Past History
Past History
ED Past Medical History: Arrthythmia (Atrial fibrillation), HTN, Valvular disease (Endocarditis) and Other (UTI, uterine fibroids, endocarditis, pericarditis, Anemia, ); Negative Asthma, CAD, Cancer, CHF, Hypercholesterolemia or NIDDM
ED Past Surgical History: Appendectomy, Cardiac (Pacer/defib, Ablation), , Orthopedic (Right knee replacement. Left hip replacement, ) and Other (Meningioma surgery brain, Fibroidectomy Hernia repair, Hemorrhoids, cataracts, Detached
retina, )
Patient has exhibited threatening behavior?: No
Social History
Tobacco: 2nd hand smoke exposure (Father was a smoker, patient reports she has been told her lungs 'look like a smokers, but I have never smoked')
Alcohol: Occasional
Drug: None
Personal:
Living: with family
Employment: Retired
Family History
Family History: Other (Noncontributory)
Review of Systems
Review of Systems
All Other Systems: ROS reviewed and negative except as documented in HPI and ROS
Constitutional: Reports no symptoms; Denies fever or chills
EENT: Reports no symptoms
Respiratory: Reports no symptoms; Denies cough or trouble breathing
Cardiac: Reports no symptoms; Denies chest pain
ABD/GI: Reports no symptoms; Denies abdominal pain, nausea, vomiting or diarrhea
: Reports no symptoms; Denies dysuria, frequency or urgency
Musculoskeletal: Reports joint pain (Left wrist discomfort and left hip discomfort)
Skin: Reports no symptoms
Neurological: Reports no symptoms; Denies dizzy or headache
Psychiatric: Reports no symptoms
Musculoskeletal Injury Exam
Musculoskeletal Injury Exam
Left Medial Wrist:
Pain with Movement?: Mild
Tender to palpation?: Mild
Soft tissue swelling?: None
External deformity and angulation?: None
Joint effusion?: None
Contusion?: None
Hematoma-local bleeding into tissue?: None
Strain- Sprain- Tear (Connective tissue injury)?: None
Crepitus with movement?: No
Joint instability?: No
Malalignment/deformity?: No
Range of motion: Full
Distal skin color and temperature: normal-warm & good color
Capillary Refill: normal
Normal distal neurovascular exam?: Yes
Left Hip:
Pain with Movement?: Mild
Tender to palpation?: None
Soft tissue swelling?: None
External deformity and angulation?: None
Joint effusion?: None
Contusion?: None
Hematoma-local bleeding into tissue?: None
Strain- Sprain- Tear (Connective tissue injury)?: None
Crepitus with movement?: No
Joint instability?: No
Malalignment/deformity?: No
Range of motion: Full
Distal skin color and temperature: normal-warm & good color
Capillary Refill: normal
Normal distal neurovascular exam?: Yes
Phy Exam
General Physical Exam
General Presentation: well appearing and no apparent distress
General age: appears stated age
General Skin: warm and dry
General Habitus: elderly
General Mental: alert
General Hydration: appears well hydrated
ENT Exam
ENT Exam: TM's normal, pharynx normal and neck supple
Eye Exam
Eye Exam: EOMI
Cardiovascular Exam
Cardiovascular Exam: regular rate/rhythm, no edema and normal peripheral pulses
Pulmonary Exam
Pulmonary Exam: lungs clear, no respiratory distress, no rales, chest non tender, no crackles, no rhonchi, no wheezing and no cough
Musculoskeletal Exam
Musculoskeletal Exam: full ROM, no edema and other (Negative cervical or spinal tenderness, Patient can cross over, abduct, flex elbows, move wrist and fingers. Negative discomfort with flexion of the knee's, inversion or eversion. )
Skin Exam
Skin Exam: normal color, warm/dry, no rash, no petechia and other (Negative for any contusion over the left hip or wrist)
Psychiatric Exam
Psychiatric Exam: normal mood/affect
Injury Course
Orders/Labs/Results
Orders:
Orders
12/18/23 16:07
Hip, Left 2-3 Views [CR Hip - LT w/wo Pel 2-3 Vw*] Urgent
Comment:
Reason For Exam: fall
Include a pelvis x-ray?: Yes
Wrist, Left 3 Views CR [CR Wrist - Left Min 3 Views] Urgent
Comment:
Reason For Exam: fall
12/18/23 18:42
[place] Wrist Left-Treatment ONCE
Acetaminophen [Tylenol] 1,000 mg PO NOW STA
MDM/Problems Addressed
Differential Diagnosis Includes:
Wrist fracture, Hip fracture, pelvic fracture
MDM/Problems Addressed:
This is a 83 year old female that comes in with c/o fall. States that she laned on her left hip and left wrist but did not hit her head
Will get X-rays of the left hip and pelvis and left wrist.
Back into see patient. Explained that there are no obvious fractures. Will place patient wrist in a universal splint. Explained that once the radiologist reads the X-ray if there is anything different she would be called and then will need to follow
up with the endoscopy support specialist. Patient to use Tylenol for pain and Ice to both the hip and the wrist for the next 24 hours. Patient to return with any concerns.
Chronic conditions affecting care:
NA
Acute Exacerbation and/or Progression of Chronic Illness:
NA
*Pulse Oximetry
Patient hypoxic: no
*EKG
Interpreted by ED Provider?: NA
Rate: EKG- N/A
*Business Services Representative Interpretation
Rate: Business Services Representative- N/A
*Critical Care Note
Total Time (30-74mins, 75-104mins- exclusive of procedures): Not Applicable
ED Attending Note
-
Portions of this chart may have been created with voice recognition software.� Occasional wrong word or��sound alike� substitutions may have occurred due to the inherent limitations of voice recognition software.
Discharge Plan
Departure
Patient Disposition: Home (Routine Discharge)
Date of Disposition: 12/18/23
Time of Disposition: 18:53
Patient with high blood pressure during this ER visit?: Yes
Condition: Good
Covid-19: Not Applicable
Discharge Problem:
Accidental fall, Left wrist sprain, Contusion of hip, left
Instructions: Contusion (DC), Preventing falls in adults, Wrist Sprain ED, BLOOD PRESSURE
Prescriptions:
No Action
cyanocobalamin (vitamin B-12) [Vitamin B-12] 1,000 mcg Tablet
1,000 mcg PO Q48H
calcium citrate 250 mg calcium Tablet
250 mg PO DAILY Qty: 0
acetaminophen 500 mg Tablet
1,000 mg PO QIDPRN PRN (Reason: mild pain)
polyethylene glycol 3350 [Miralax] 17 gram Powder In Packet
17 g PO DAILY
Eliquis 5 MG tablet
5 mg PO BID Qty: 0 0RF
metoprolol succinate 50 mg tablet extended release 24 hr
50 mg PO QPM
amiodarone [Pacerone] 200 mg tablet
200 mg PO DAILY
hydrocodone-acetaminophen 5-325 mg Tablet
1 tab PO QIDPRN PRN (Reason: PAIN)
levothyroxine 25 mcg Tablet
50 mcg PO DAILY
Referrals:
Emma Cohen MD [Family Provider] -
Activity Restrictions/Additional Instructions:
As discussed, your X-rays appear to be negative for any fractures. Please use ice to the hip and wrist for the next 24 hours to hip with any pain or swelling. You may use Tylenol 1000mg every 6 hours for pain. If there are any fractures seen by the
Radiologist you will be called and notified. Then you will need to see the endoscopy support specialist. You have been given a [place] splint for the left wrist to help give the wrist some support and for comfort. You may remove this as needed. IF YOU
HAVE ANY OTHER CONCERNS PLEASE RETURN TO THE EMERGENCY ROOM.
Interventions
Interventions:
*Risk Screen - Suicide Last Done: 12/18/23 18:14
*General Assessment Last Done: 12/18/23 18:14
*Neglect/Abuse Screening Last Done: 12/18/23 18:14
ED- Fall Risk Assessment Last Done: 12/18/23 18:14
*ED COVID-19 Vaccine History Last Done: 12/18/23 18:14
ED-Musculoskeletal Assessment Last Done: 12/18/23 18:18
ED- Neurological Assessment Last Done: 12/18/23 18:18
ED-Skin Assessment Last Done: 12/18/23 18:18
Discharge Date and Time
Print Language: UKRAINIAN
[2023-12-18] MEDS: TYLENOL 1000 MG PO (18:56)
== END 2023-12-18 19:28 | disposition home or self-care (01) ==
LOC: EMR 16:03
PROVIDERS: EMERGENCY PHYSICIAN Emergency Medicine; FAMILY PHYSICIAN Internal Medicine
DX: S63.502A Unspecified sprain of left wrist, initial encounter (principal); S70.02XA Contusion of left hip, initial encounter; W19.XXXA Unspecified fall, initial encounter; I48.91 Unspecified atrial fibrillation; I11.0 Hypertensive heart disease with heart failure; I50.9 Heart failure, unspecified; I25.10 Atherosclerotic heart disease of native coronary artery without angina pectoris; I38 Endocarditis, valve unspecified; E11.36 Type 2 diabetes mellitus with diabetic cataract; Z77.22 Contact with and (suspected) exposure to environmental tobacco smoke (acute) (chronic); Z87.19 Personal history of other diseases of the digestive system; Z87.440 Personal history of urinary (tract) infections; Z90.49 Acquired absence of other specified parts of digestive tract; Z96.642 Presence of left artificial hip joint; Z96.651 Presence of right artificial knee joint
CPT/HCPCS: 99283; 73110; 73502

== ENCOUNTER → 2024-01-13 10:30 | Outpatient (REF) | payer MEDICARE, SELFPAY | LOC: HWRAD 10:30 | PROVIDERS: ATTENDING PHYSICIAN Internal Medicine Critical Care Medicine; FAMILY PHYSICIAN Internal Medicine | DX: T46.2X1A Poisoning by other antidysrhythmic drugs, accidental (unintentional), initial encounter (principal) | CPT/HCPCS: 71250 ==

== ENCOUNTER → 2024-07-18 15:24 | Outpatient (REF) | payer MEDICARE, SELFPAY | LOC: RAD 15:24 | PROVIDERS: ATTENDING PHYSICIAN Nurse Practitioner Adult Health; FAMILY PHYSICIAN Internal Medicine | DX: M79.672 Pain in left foot (principal) | CPT/HCPCS: 73610; 73630 ==